=== PATIENT | female | born 1945 | race Hispanic/Latino ===

== ENCOUNTER 2017-04-09 12:56 | Outpatient (CLI) | payer MEDICARE, BC ==
--- NOTE | 2017-04-09 15:56 | MRI ---
EXAM: LUMBAR SPINE MRI WITHOUT CONTRAST 04/09/17 HISTORY: Lumbar spondylolisthesis. COMPARISON: None. TECHNIQUE: MRI of lumbar spine is performed without intravenous gadolinium administration. Multisequential, mult iplanar imaging is performed. FINDINGS: Appropriate T1 marrow signal intensity of the lumbar vertebrae. Lumbar spine vertebral height is main tained. No fracture. 4 mm of retrolisthesis of L2 upon L3, 4 mm anterolisthesis of L4 upon L5. No sig nificant STIR hyperintensity to suggest vertebral body edema or ligamentous injury. Appropriate signal intensity of the visualized solid organs. Symmetric signal intensity of the psoas muscles. Conus medullaris terminates at the superior end plate of L1. T12-L1: Adequate disc hydration. No significant central canal stenosis or foraminal narrowing. L1-L2: Adequate disc hydration. No significant central canal stenosis or foraminal narrowing. L2-L3: Disc desiccation with moderate loss of disc space height. Generalized disc bulge results in mi nimal central canal stenosis. Mild bilateral foraminal narrowing. L3-L4: Adequate disc hydration. No significant loss of disc space height. Generalized disc bulge, lig amentum flavum thickening and facet hypertrophy results in mild central canal stenosis. Mild right an d moderate to severe left foraminal narrowing. L4-L5: Desiccation with mild loss of disc space height. Generalized disc bulge, ligamentum flavum thi ckening and facet hypertrophy result in moderate to severe central canal stenosis. Mild right and mod erate left foraminal narrowing. L5-S1: Adequate disc hydration. No significant central canal stenosis. Neural foramina are patent. Th ere is bilateral facet hypertrophy. IMPRESSION: Degenerative changes of the lumbar spine as above. There is moderate to severe central canal stenosis at L3-4. POS: [facility]
--- NOTE | 2017-04-09 16:05 | RAD ---
THREE VIEW LUMBAR SPINE SERIES: Indication: Lumbar radiculopathy. Pain. FINDINGS: Three lateral views including neutral, flexion and extension were performed. Limited evaluation witho ut provided frontal view. Neutral view reveals multilevel endplate degenerative change with mild retrolisthesis of L2 on L3 and grade I spondylolisthesis at L4-5. Upon flexion and extension positioning, there is no significant t ranslational motion. There is atherosclerotic vascular disease. IMPRESSION: 1. Listheses of the lumbar spine, without significant translation motion. 2. Multilevel degenerative change is present within the lumbar spine. POS: [facility]
== END 2017-04-09 12:57 | disposition home or self-care (01) ==
LOC: TBSIIMAG 12:56
PROVIDERS: ATTEND Neurological Surgery
DX: M43.16 Spondylolisthesis, lumbar region (principal); M47.816 Spondylosis without myelopathy or radiculopathy, lumbar region; M48.061 Spinal stenosis, lumbar region without neurogenic claudication
CPT/HCPCS: 72100; 72148

== ENCOUNTER 2017-04-22 15:00 | Inpatient (IN) | payer MEDICARE, BC ==
[2017-04-23 11:56] VITALS: BMI 27.8
[2017-04-29] MEDS ORDERED: Fentanyl 100 MCG/2 ML VIAL ONE ×3 (06:48→09:52)
[2017-04-29] MEDS ORDERED: Sodium Chloride 0.9% 10 ML ONE (06:52)
[2017-04-29] MEDS ORDERED: CEFAZOLIN/Water 2 GM/20 ML SYRINGE ONE (07:13)
--- NOTE | 2017-04-29 09:04 | OP ---
DATE OF PROCEDURE: 04/29/2016 SURGEON: Marco aNrvaez M.D. VISCERA WASHER: Jose Antonio Rivera PROCEDURE: L4-5 laminectomy, posterolateral arthrodesis, pedicle screw instrumentation, demineralize d bone matrix, and local morselized autograft L4-5. PROCEDURE IN DETAIL: The patient was brought into the operating room intubated. She was rolled in t he prone position on gel-filled chest rolls. Incision made exposing L4 and L5 and our level was conf irmed by x-ray. We performed complete L5 and inferior L4 laminectomies, completely decompressing the neural elements bilaterally. Next, we placed pedicle screws at right L4 and right L5 using lateral fluoroscopic guidance. A nitza was secured between the screws, connected by nuts which were final tigh tened. The wound was then extensively irrigated, immaculate hemostasis was secured. A combination o f demineralized bone matrix and local morselized autograft was laid over the left laminar and postero lateral surfaces for the purpose of arthrodesis. Vancomycin powder was applied and the wound was the n closed in anatomic layers.
[2017-04-29] MEDS ORDERED: Promethazine HCl 25 MG/ML VIAL IM PRN ×2 (09:09→09:46)
[2017-04-29] MEDS ORDERED: Promethazine HCl 25 MG/ML VIAL SLOW IVP PRN (09:09)
[2017-04-29] MEDS ORDERED: Ondansetron HCl/PF 4 MG/2 ML Vial IVP PRN (09:09)
[2017-04-29] MEDS ORDERED: Prochlorperazine 10 MG/2 ML VIAL IM PRN (09:46)
[2017-04-29] MEDS ORDERED: Milk Of Magnesia 30 ML UDCUP PO PRN (09:46)
[2017-04-29] MEDS ORDERED: Acetaminophen 325 MG TAB PO PRN (09:46)
[2017-04-29] MEDS ORDERED: Mag-Al 1200 mg/1200 mg/30 ML UDCUP PO PRN (09:46)
[2017-04-29] MEDS ORDERED: Promethazine HCl 12.5 MG SUPP PR PRN (09:46)
[2017-04-29] MEDS ORDERED: Promethazine 25 MG TAB PO PRN (09:46)
[2017-04-29] MEDS ORDERED: Acetaminophen 650 MG Suppository PR PRN (09:46)
[2017-04-29] MEDS ORDERED: HYDROcodone/Acetaminophen 7.5/325 mg Tablet PO PRN (09:46)
[2017-04-29] MEDS ORDERED: Morphine 4 MG/ML Carpuject SLOW IVP PRN (09:46)
[2017-04-29] MEDS ORDERED: Ondansetron HCl/PF 4 MG/2 ML Vial IM PRN (09:48)
[2017-04-29] MEDS ORDERED: Benzonatate 100 MG CAP PO PRN (09:53)
[2017-04-29] MEDS ORDERED: Docusate Calcium (SURFAK) 240 MG CAP PO PRN (09:55)
[2017-04-29] MEDS ORDERED: HYDROcodone/Acetaminophen 5/325 mg Tablet PO PRN (10:01)
[2017-04-29] MEDS ORDERED: Meclizine HCl 25 MG TAB PO PRN (10:03)
[2017-04-29] MEDS ORDERED: Ketorolac Tromethamine 30 MG/ML VIAL IVP SCH (12:00)
[2017-04-29] MEDS: tiZANidine HCl 4 MG TAB PO PRN (12:45)
[2017-04-29] MEDS ORDERED: Morphine 5 MG/ML SYRINGE SLOW IVP PRN ×2 (12:50)
[2017-04-29] MEDS: Sodium Chloride 0.9% 1,000 ML IV SCH (13:07)
[2017-04-29] MEDS: CEFAZOLIN/Water 2 GM/20 ML SYRINGE SLOW IVP SCH ×2 (14:08→23:25)
[2017-04-29] MEDS: Gabapentin 100 MG CAP PO SCH ×2 (15:33→22:07)
[2017-04-29] MEDS: chlordiazePOXIDE/Clidinium Bromide Capsule PO SCH ×2 (15:34→22:31)
[2017-04-29] MEDS: Ketorolac Tromethamine 30 MG/ML VIAL IVP SCH ×2 (15:35→22:11)
[2017-04-29] MEDS ORDERED: Propofol 200 MG/20 ML VIAL ONE (15:49)
[2017-04-29] MEDS ORDERED: PHENYLEPHRINE-NS 100 MCG/ML 10 ML SYRINGE ONE (15:49)
[2017-04-29] MEDS ORDERED: Dexamethasone 20 MG/5 ML VIAL ONE (15:49)
[2017-04-29] MEDS ORDERED: Lidocaine 1% PF 5 ML VIAL ONE (15:49)
[2017-04-29] MEDS ORDERED: Ondansetron HCl/PF 4 MG/2 ML Vial ONE (15:49)
[2017-04-29] MEDS ORDERED: Glycopyrrolate 0.2 MG/ML 5 ML SYRINGE ONE (15:49)
[2017-04-29] MEDS ORDERED: ePHEDrine/0.9% NaCl/PF SYRINGE 50 mg/10 ml ONE (15:49)
[2017-04-29] MEDS ORDERED: Ketorolac Tromethamine 30 MG/ML VIAL ONE (15:49)
[2017-04-29] MEDS: HYDROcodone/Acetaminophen 7.5/325 mg Tablet PO PRN ×2 (17:45→22:27)
[2017-04-29] MEDS: Loratadine 10 MG TAB PO SCH (22:06)
[2017-04-29] MEDS: ALPRAZolam 0.25 MG TAB PO SCH (22:07)
[2017-04-29] MEDS: Azelastine 137 MCG/Spray 30 ML NS SCH (22:31)
[2017-04-29] MEDS: Clotrimazole/Betamethasone Cream 45 GM TUBE TOP SCH (22:31)
[2017-04-29] MEDS: Estrogens, Conjugated 30 GM TUBE VAG SCH (22:31)
[2017-04-29] MEDS: Latanoprost 0.005% Ophth Soln 2.5 ml Bottle EA EYE SCH (22:32)
[2017-04-29] MEDS: Losartan 25 MG TAB PO SCH (22:32)
[2017-04-30] MEDS: Sodium Chloride 0.9% 1,000 ML IV SCH ×2 (00:02→11:24)
[2017-04-30] MEDS: Ketorolac Tromethamine 30 MG/ML VIAL IVP SCH ×4 (04:02→22:00)
[2017-04-30] MEDS: HYDROcodone/Acetaminophen 7.5/325 mg Tablet PO PRN ×2 (04:09→20:39)
[2017-04-30] MEDS: chlordiazePOXIDE/Clidinium Bromide Capsule PO SCH ×2 (07:14→11:15)
[2017-04-30] MEDS ORDERED: [UNRECOGNIZED DRUG - OTHER] PO SCH (09:00)
[2017-04-30] MEDS: Clotrimazole/Betamethasone Cream 45 GM TUBE TOP SCH ×2 (09:41→20:03)
[2017-04-30] MEDS: Azelastine 137 MCG/Spray 30 ML NS SCH ×2 (09:41→20:02)
[2017-04-30] MEDS: Gabapentin 100 MG CAP PO SCH ×3 (09:41→20:25)
[2017-04-30] MEDS: Hydrochlorothiazide 25 MG TAB PO SCH (11:00)
[2017-04-30] MEDS: Potassium Chloride 20 MEQ TAB PO SCH (13:07)
[2017-04-30] MEDS: Losartan 25 MG TAB PO SCH (20:02)
[2017-04-30] MEDS: Latanoprost 0.005% Ophth Soln 2.5 ml Bottle EA EYE SCH (20:02)
[2017-04-30] MEDS: Loratadine 10 MG TAB PO SCH (20:24)
[2017-04-30] MEDS: Estrogens, Conjugated 30 GM TUBE VAG SCH (20:25)
[2017-04-30] MEDS: ALPRAZolam 0.25 MG TAB PO SCH (20:25)
[2017-05-01] MEDS: Sodium Chloride 0.9% 1,000 ML IV SCH ×3 (03:02→20:32)
[2017-05-01] MEDS: Ketorolac Tromethamine 30 MG/ML VIAL IVP SCH ×2 (04:38→09:28)
[2017-05-01] MEDS: Gabapentin 100 MG CAP PO SCH ×3 (09:19→20:33)
[2017-05-01] MEDS: Potassium Chloride 20 MEQ TAB PO SCH (09:19)
[2017-05-01] MEDS: tiZANidine HCl 4 MG TAB PO PRN (09:23)
[2017-05-01] MEDS: Azelastine 137 MCG/Spray 30 ML NS SCH ×2 (09:25→20:32)
[2017-05-01] MEDS: Clotrimazole/Betamethasone Cream 45 GM TUBE TOP SCH ×2 (09:26→20:33)
[2017-05-01] MEDS: chlordiazePOXIDE/Clidinium Bromide Capsule PO SCH ×3 (09:26→20:33)
[2017-05-01] MEDS: Hydrochlorothiazide 25 MG TAB PO SCH (09:26)
[2017-05-01] MEDS ORDERED: Naloxone HCl 0.4 mg/ml Vial ONE ×2 (10:51→10:55)
[2017-05-01] MEDS ORDERED: Sodium Chloride 0.9% 1,000 ML IV SCH (12:15)
[2017-05-01 13:45] LABS: #Eosinphils 0.1 thou/uL (0.0-0.7); #Lymphocytes 1.4 thou/uL (1.20-3.40); #Monocytes 0.4 thou/uL (0.11-0.59); #Neutrophils 3.6 thou/uL (1.40-6.50); %Basophils 0.4 % (0.0-1.0); %Eosinophils 2.5 % (0.0-10.0); %Lymphocytes 25.6 % (21.0-51.0); %Monocytes 7.9 % (0.0-10.0); %Neutrophils 63.6 % (42.0-75.0); Hemoglobin 10.7 g/dL (12.0-16.0); Mean Corpuscular HGB CONC 33.1 g/dL (32.0-36.0); Mean Corpuscular Hemoglobin 31.9 pg (27.0-31.0); Mean Corpuscular Volume 96.4 fl (81.0-99.0); Mean Platelet Volume 7.5 fL (7.4-10.4); Platelet Count 162 thou/uL (130-400); RBC Distribution Width 11.8 % (11.5-14.5); Red Blood Cell (RBC) Count 3.35 mill/uL (4.20-5.40); White Blood Cell (WBC) Count 5.6 thou/uL (4.8-10.8)
[2017-05-01 13:54] LABS: Anion Gap 11 mmol/L (10-20); BUN (Urea Nitrogen) 20 mg/dL (9.8-20.1); Calc. Creatinine Clearance 60 mL/min (70-130); Calcium 8.2 mg/dL (7.8-10.44); Carbon Dioxide 23 mmol/L (23-31); Chloride 110 mmol/L (98-107); Estimated GFR-MDRD 63; Glucose 164 mg/dL (83-110); Magnesium 1.7 mg/dL (1.6-2.6); Potassium 4.2 mmol/L (3.5-5.1); Sodium 140 mmol/L (136-145)
[2017-05-01] MEDS: ALPRAZolam 0.25 MG TAB PO SCH (20:32)
[2017-05-01] MEDS: Estrogens, Conjugated 30 GM TUBE VAG SCH (20:33)
[2017-05-01] MEDS: Losartan 25 MG TAB PO SCH (20:34)
[2017-05-01] MEDS: Loratadine 10 MG TAB PO SCH (20:34)
[2017-05-01] MEDS: Latanoprost 0.005% Ophth Soln 2.5 ml Bottle EA EYE SCH (20:34)
[2017-05-01] MEDS: Acetaminophen 500 MG TAB PO PRN (23:01)
[2017-05-02] MEDS: Sodium Chloride 0.9% 1,000 ML IV SCH (05:50)
[2017-05-02 08:19] LABS: #Basophils 0.1 thou/uL (0.0-0.2); #Eosinphils 0.1 thou/uL (0.0-0.7); #Lymphocytes 1.2 thou/uL (1.20-3.40); #Monocytes 0.4 thou/uL (0.11-0.59); #Neutrophils 3.6 thou/uL (1.40-6.50); %Basophils 1.2 % (0.0-1.0); %Eosinophils 1.6 % (0.0-10.0); %Lymphocytes 22.6 % (21.0-51.0); %Monocytes 7.8 % (0.0-10.0); %Neutrophils 66.9 % (42.0-75.0); Hemoglobin 11.7 g/dL (12.0-16.0); Mean Corpuscular HGB CONC 33.4 g/dL (32.0-36.0); Mean Corpuscular Hemoglobin 32.4 pg (27.0-31.0); Mean Corpuscular Volume 96.8 fl (81.0-99.0); Mean Platelet Volume 7.1 fL (7.4-10.4); Platelet Count 170 thou/uL (130-400); RBC Distribution Width 11.7 % (11.5-14.5); Red Blood Cell (RBC) Count 3.62 mill/uL (4.20-5.40); White Blood Cell (WBC) Count 5.4 thou/uL (4.8-10.8)
[2017-05-02 08:40] LABS: Anion Gap 9 mmol/L (10-20); BUN (Urea Nitrogen) 10 mg/dL (9.8-20.1); Calc. Creatinine Clearance 70 mL/min (70-130); Calcium 8.6 mg/dL (7.8-10.44); Carbon Dioxide 25 mmol/L (23-31); Chloride 109 mmol/L (98-107); Estimated GFR-MDRD 76; Glucose 112 mg/dL (83-110); Magnesium 1.7 mg/dL (1.6-2.6); Potassium 3.9 mmol/L (3.5-5.1); Sodium 139 mmol/L (136-145)
[2017-05-02] MEDS: chlordiazePOXIDE/Clidinium Bromide Capsule PO SCH (08:50)
[2017-05-02] MEDS: Gabapentin 100 MG CAP PO SCH (08:50)
[2017-05-02] MEDS: Clotrimazole/Betamethasone Cream 45 GM TUBE TOP SCH (08:50)
[2017-05-02] MEDS: Azelastine 137 MCG/Spray 30 ML NS SCH (08:50)
[2017-05-02] MEDS: Acetaminophen 500 MG TAB PO PRN (08:50)
[2017-05-02] MEDS: Potassium Chloride 20 MEQ TAB PO SCH (08:51)
[2017-05-02] MEDS: Hydrochlorothiazide 25 MG TAB PO SCH (08:52)
[2017-05-02] MEDS ORDERED: Meclizine HCl 25 MG TAB PO SCH ×2 (10:45→15:00)
--- NOTE | 2017-05-02 13:40 | PDOC.PN ---
- Subjective Encounter Start Date: 05/02/17 Encounter Start Time: 09:20 Pt feels poorly today, but number normal. BP markedly better, no F/C, no n/v/d/ c. has a headache, usually takes her meclizine for this with good effect, will restart 10 point ROs performed and neg for all systems except as per HPI - Objective MAR Reviewed: Yes Vital Signs & Weight: Vital Signs (12 hours) Temp Pulse Pulse Resp BP BP Pulse Ox 05/02/17 12:00 97.8 F 72 20 123/73 95 05/02/17 11:08 98.3 F 79 20 129/71 95 05/02/17 09:36 83 129/68 05/02/17 08:00 99.3 F 75 20 135/82 95 05/02/17 07:58 20 05/02/17 04:19 98.5 F 72 16 124/67 94 L Weight Weight 147 lb I&O: 05/01/17 05/02/17 05/03/17 06:59 06:59 06:59 Intake Total 902 3901 Output Total 700 Balance 202 3901 Result Diagrams: 05/02/17 08:09 05/02/17 08:09 Phys Exam - Physical Examination Constitutional: NAD HEENT: PERRLA, moist MMs, sclera anicteric, oral pharynx no lesions Neck: no nodes, no JVD, supple, full ROM Respiratory: no wheezing, no rales, no rhonchi, clear to auscultation bilateral Cardiovascular: RRR, no significant murmur, no rub Gastrointestinal: soft, non-tender, no distention, positive bowel sounds Musculoskeletal: no edema, pulses present Neurological: non-focal, normal sensation, moves all 4 limbs Lymphatic: no nodes Psychiatric: normal affect, A&O x 3 Skin: no rash, normal turgor, cap refill <2 seconds Dx/Plan (1) Hypotension Status: Resolved Qualifiers: Hypotension type: hypotension due to drug Qualified Code(s): I95.2 - Hypotension due to drugs Comment: resolved, ok to discharge (2) Anxiety and depression Code(s): F41.9 - ANXIETY DISORDER, UNSPECIFIED; F32.9 - MAJOR DEPRESSIVE DISORDER, SINGLE EPISODE, UNSPECIFIED Status: Chronic (3) GERD (gastroesophageal reflux disease) Code(s): K21.9 - GASTRO-ESOPHAGEAL REFLUX DISEASE WITHOUT ESOPHAGITIS Status: Chronic Qualifiers: Esophagitis presence: without esophagitis Qualified Code(s): K21.9 - Gastro -esophageal reflux disease without esophagitis (4) Glaucoma Code(s): H40.9 - UNSPECIFIED GLAUCOMA Status: Chronic Qualifiers: Glaucoma type: unspecified Laterality: bilateral Qualified Code(s): H40.9 - Unspecified glaucoma (5) HTN (hypertension) Code(s): I10 - ESSENTIAL (PRIMARY) HYPERTENSION Status: Chronic Qualifiers: Hypertension type: essential hypertension Qualified Code(s): I10 - Essential (primary) hypertension - Plan cont current plan of care, PT/OT, out of bed/ambulate * . home per NSG
[2017-05-02 14:12] VITALS: BP 133/63; TEMP 98.4
== END 2017-05-02 14:12 | disposition home health service (06) | DRG 460 ==
LOC: SURG A 04-29 06:18 → 3SE 04-29 11:31 → EDSTATUS 04-29 15:00
PROVIDERS: ADMIT Neurological Surgery; ATTEND Neurological Surgery
PROC: 01NB0ZZ Release Lumbar Nerve, Open Approach (ICD-10-PCS; principal; 2017-04-29)
PROC: 0SG0071 Fusion of Lumbar Vertebral Joint with Autologous Tissue Substitute, Posterior Approach, Posterior Column, Open Approach (ICD-10-PCS; 2017-04-29)
DX: M43.16 Spondylolisthesis, lumbar region (principal); F32.9 Major depressive disorder, single episode, unspecified; F41.9 Anxiety disorder, unspecified; M48.061 Spinal stenosis, lumbar region without neurogenic claudication; I95.2 Hypotension due to drugs; T42.8X5A Adverse effect of antiparkinsonism drugs and other central muscle-tone depressants, initial encounter; R55 Syncope and collapse; T40.2X5A Adverse effect of other opioids, initial encounter; K21.9 Gastro-esophageal reflux disease without esophagitis; H40.9 Unspecified glaucoma; I10 Essential (primary) hypertension
CPT/HCPCS: 36415; 36416; 76001; 80048; 83735; 85025; J2270; A4216; C1713; C1768; G8978-GP-CL; G8979-GP-CJ; J1100; J1885; J2001; J2310; J2405; J2704; J3010; J3370; J3490

== ENCOUNTER 2017-04-23 11:44 | Outpatient (CLI) | payer MEDICARE, BC | END 2017-04-23 11:45 | disposition home or self-care (01) | LOC: LABBT 11:44 | PROVIDERS: ATTEND Neurological Surgery | DX: Z01.812 Encounter for preprocedural laboratory examination (principal); M43.16 Spondylolisthesis, lumbar region | CPT/HCPCS: 87081 ==

== ENCOUNTER 2017-05-13 09:41 | Outpatient (CLI) | payer MEDICARE, BC ==
--- NOTE | 2017-05-13 11:44 | RAD ---
TWO VIEWS LUMBAR SPINE: History: Status post-surgery. Continued pain. Date: 05-13-17 Comparison: 04-09-17 FINDINGS: AP and lateral views obtained. There are right L4 and L5 pedicles screws in position. This patient muse s had a previous L4 posterior decompression. Some L5 decompression is also noted. There is some dextr oscoliosis centered at the L3 level. Disc space height loss also seen at L2-3. The degree of anterolisthesis of L4 on L5 has decreased on the post hardware placement radiographs. Surgical clips seen in the gallbladder fossa. IMPRESSION: L4 and L5 posterior decompression with placement of right L4 and L5 transpedicular screws. POS: [facility]
== END 2017-05-13 09:42 | disposition home or self-care (01) ==
LOC: TBSIIMAG 09:41
PROVIDERS: ATTEND Neurological Surgery
DX: M43.16 Spondylolisthesis, lumbar region (principal); Z98.890 Other specified postprocedural states
CPT/HCPCS: 72100

== ENCOUNTER 2017-05-19 13:03 | Inpatient (IN) | payer MEDICARE, BC ==
[2017-05-19 13:51] LABS: #Basophils 0.1 thou/uL (0.0-0.2); #Eosinphils 0.1 thou/uL (0.0-0.7); #Lymphocytes 1.4 thou/uL (1.20-3.40); #Monocytes 0.3 thou/uL (0.11-0.59); #Neutrophils 2.7 thou/uL (1.40-6.50); %Basophils 1.3 % (0.0-1.0); %Eosinophils 2.7 % (0.0-10.0); %Lymphocytes 30.5 % (21.0-51.0); %Monocytes 7.4 % (0.0-10.0); Hemoglobin 13.7 g/dL (12.0-16.0); Mean Corpuscular HGB CONC 33.7 g/dL (32.0-36.0); Mean Platelet Volume 6.8 fL (7.4-10.4); Platelet Count 298 thou/uL (130-400); RBC Distribution Width 11.7 % (11.5-14.5); White Blood Cell (WBC) Count 4.6 thou/uL (4.8-10.8)
[2017-05-19 14:00] LABS: PTT 28.8 SEC (22.9-36.1); Prothrombin Time 13.3 SEC (12.0-14.7)
--- NOTE | 2017-05-19 14:00 | RAD ---
SINGLE VIEW CHEST: HISTORY: Lumbar back pain after a fall 30 minutes prior to arrival. COMPARISON: None. FINDINGS: Single view of the chest show normal sized cardiomediastinal silhouette. There is no evidence of cons olidation, mass, or pleural effusion. The bones are unremarkable. Cholecystectomy clips are seen in the upper abdomen. IMPRESSION: No evidence of acute cardiopulmonary disease. POS: [facility]
[2017-05-19 14:04] LABS: ALT (SGPT) 15 U/L (8-55); AST (SGOT) 13 U/L (5-34); Albumin 4.4 g/dL (3.4-4.8); Alkaline Phosphatase 73 U/L (40-150); Anion Gap 15 mmol/L (10-20); BUN (Urea Nitrogen) 16 mg/dL (9.8-20.1); Bilirubin, Total 0.5 mg/dL (0.2-1.2); CK (CPK) 26 U/L (29-168); Calc. Creatinine Clearance 0 mL/min (70-130); Calcium 9.8 mg/dL (7.8-10.44); Carbon Dioxide 24 mmol/L (23-31); Chloride 103 mmol/L (98-107); Estimated GFR-MDRD 56; Globulin 3.4 g/dL (2.4-3.5); Glucose 105 mg/dL (83-110); Protein, Total 7.8 g/dL (6.0-8.3); Sodium 139 mmol/L (136-145)
[2017-05-19 14:06] LABS: Potassium 2.9 mmol/L (3.5-5.1)
--- NOTE | 2017-05-19 14:06 | CT ---
NONCONTRAST HEAD CT: HISTORY: Stroke activation. Status post fall. Recent spinal surgery six weeks ago with hardware. COMPARISON: None. TECHNIQUE: A noncontrast head CT is performed from the skull base to the skull vertex. FINDINGS: No parenchymal hemorrhage. No extraaxial hematoma. No midline shift. the basilar cisterns are barry nt. Brain volume is age appropriate. Cortical dooley white matter differentiation is preserved. The ventricles and sulci are patent and symmetric. The calvarium is intact. Adequate aeration of the sinuses and mastoid air cells. IMPRESSION: No acute intracranial process. The results of the study were discussed with Dr. Weber on 05/19/2017 at 1:58 p.m. CODE CR POS: [facility]
[2017-05-19 14:07] LABS: CKMB 0.4 ng/mL (0-6.6); Troponin I Less than 0.010 ng/mL (< 0.028)
--- NOTE | 2017-05-19 15:26 | CT ---
CT OF THE LUMBAR SPINE WITHOUT CONTRAST: COMPARISON: None. HISTORY: Right lower extremity weakness after a fall. The patient had spinal surgery 6 weeks ago with etja powers. The patient reports having the right lower extremity weakness prior to the fall. TECHNIQUE: Multiple contiguous axial images were obtained in a CT of the lumbar spine without contrast. Sagitta l and coronal reformats were performed. FINDINGS: The patient has had laminectomies at L4 and L5. There are right-sided pedicle screws spanning L4 and L5. No perihardware lucency is seen. The vertebral bodies demonstrate normal height without fractu re or subluxation. The L2-3 intervertebral disk is narrowed and has vacuum phenomenon. Moderate ost eophytes are seen surrounding this intervertebral disk. There is soft tissue density in the surgical bed which may demonstrate low signal intensity. This co uld potentially represent a fluid collection but cannot be definitely appreciated with CT. Atheroscl erotic calcifications are seen in the aorta. The other prevertebral soft tissues are unremarkable. IMPRESSION: Postsurgical changes of the lower lumbar spine as above. There may be a fluid collection in the para spinal soft tissues, but evaluation is limited on the CT without contrast. An MRI of the lumbar spin e without and with contrast is recommended for further evaluation. POS: [facility]
--- NOTE | 2017-05-19 15:49 | CT ---
CT CERVICAL SPINE: Date: 05/19/17 HISTORY: Fall. Pain. COMPARISON: None. TECHNIQUE: Axial images of the cervical spine were obtained while performing a CT angiogram of the neck. Sagitta l and coronal images with bone algorithm are submitted for interpretation. FINDINGS: There are varying degrees of central canal stenosis and foraminal narrowing on the basis of degenerat haylee change. Evaluation is limited by technique. Lateral masses of C1 and C2 articulate appropriately. There is appropriate articulation of the facets . Odontoid process is intact. No evidence of a cervical spine fracture. Cervical spine vertebral body height is maintained. IMPRESSION: No fracture. POS: [facility]
[2017-05-19] MEDS ORDERED: Acetaminophen 500 MG TAB PO PRN (16:19)
[2017-05-19] MEDS ORDERED: Docusate Calcium (SURFAK) 240 MG CAP PO PRN (16:19)
[2017-05-19] MEDS ORDERED: Benzonatate 100 MG CAP PO PRN (16:19)
[2017-05-19] MEDS ORDERED: Sod Chloride/Lan/MO/Peet,Wh (Lubriderm) Lotion 180 ml Bottle TOP PRN (16:19)
[2017-05-19] MEDS ORDERED: Potassium Chloride 40 MEQ in Sodium Chloride 0.9% 500 ML IVPB SCH (16:45)
[2017-05-19] MEDS ORDERED: ISOVUE-370 76%-LOCM 1 ML ONE (16:47)
--- NOTE | 2017-05-19 16:53 | HP ---
DATE OF ADMISSION: 05/19/2017 CHIEF COMPLAINT: Right lower extremity weakness. HISTORY OF PRESENT ILLNESS: This is a 72-year-old female who is being admitted to the hospital with right lower extremity weakness. The patient incidentally had a recent surgery towards the end of Apr ruary for a spinal surgery and was discharged home. The patient states that at home everything was g oing well. She was recovering well, ambulating well this morning. The patient's family states that she woke up and then apparently stated all of a sudden she had a sudden onset of right lower extremit y weakness, was unable to ambulate and had a witnessed mechanical fall. Patient states that she is u nable to recall the incident at that time. Currently, at this point in time, the patient states that she feels that her cognitive functions have decreased and speech. She talks very slowly. States th at she has significant pain in the right shoulder as well as right hip and also admits to having a re duced muscle strength and movement in the right lower extremity. The patient states that this has ne jade happened to her before. Denies any other complaints or associated symptoms. The patient states that she has no alleviating or aggravating factors. The patient states the pain is 7/10 in nature an d throbbing in nature. The patient was seen and examined in the emergency room. Family at bedside. All questions answered. MEDICATIONS: See MAR. ALLERGIES: CODEINE, PENICILLIN, LACTOSE, TIZANIDINE and TRAMADOL. PAST MEDICAL HISTORY: Positive for hypertension, spinal fusion surgery and back pain. FAMILY HISTORY: History of coronary artery disease and strokes. SOCIAL HISTORY: No drinking or smoking. REVIEW OF SYSTEMS: Twelve point review of systems performed. Pertinent positives in the HPI, otherw ise negative. PHYSICAL EXAMINATION: VITAL SIGNS: Blood pressure 146/78, heart rate 98, temperature of 98, respiratory rate 18. GENERAL: The patient is lying in bed in the ER in moderate distress. HEENT: Pupils equal, round, reactive to light bilaterally accommodation. Normocephalic, atraumatic. NECK: Supple, nontender, mobile thyroid. LUNGS: Clear to auscultation bilaterally aerating well. No increase in AP diameter. CARDIOVASCULAR: Regular rate and rhythm, S1 and S2. No murmurs, rubs or gallops appreciated. ABDOMEN: Positive bowel sounds, soft, nontender. EXTREMITIES: 2+ peripheral pulses. No edema noted. NEUROLOGIC: CN II-XII intact. Right lower extremity 1/5 hip flexion. Left lower extremity 4/5 hip flexion, finger to nose on the right side inappropriate, left side appropriate. LABORATORY DATA: CBC within normal limits. BMP reveals potassium of 2.9, otherwise within normal li mits. The patient had a cervical spine CT done, which showed no fracture. The patient had a lumbar spine CT done as well, which showed postsurgical changes in the lower lumbar spine, fluid collections in paraspinal soft tissue as well. The patient also had a head and neck CTA done which is pending. ASSESSMENT AND PLAN: 1. Right lower extremity weakness. 2. History of recent spinal surgery. 3. Hypertension. 4. Right hip pain. 1. At this point in time, we will admit the patient to the stroke unit. Consult Neurology and Neuro surgery. 2. CTA of head and neck pending. We will follow up with results. 3. The patient is not a TPA candidate given recent lumbar surgery. 4. We will start the patient on aspirin and statin. Heparin 5000 q.12h. for DVT prophylaxis. Resum e home medications with hold parameters to be held if systolic blood pressure drops less than 120. 5. We will place patient n.p.o. at this point in time until cleared by Neurology to continue diet as well as passing a swallow evaluation by Speech Therapy. We will do gentle hydration of 60 mL normal saline as well. We will hold home medications such as Ativan and Xanax and muscle relaxants as per family history. She has had significant episodes of hypotension upon taking these medications. 6. I appreciate Neurosurgery and neurological input. Case and plan discussed with patient and famil y at length. They understand and agree with this plan. The patient wishes to remain FULL CODE at th is point in time.
[2017-05-19] MEDS: Sodium Chloride 0.9% 1,000 ML IV SCH (17:30)
[2017-05-19 18:46] VITALS: BMI 27.6
[2017-05-19] MEDS: Clotrimazole/Betamethasone Cream 45 GM TUBE TOP SCH (21:17)
--- NOTE | 2017-05-19 21:29 | CON ---
DATE OF CONSULTATION: 05/19/2017 REFERRING PHYSICIAN: Narendra Castro DO REASON FOR CONSULTATION: Right-sided weakness. HISTORY OF PRESENT ILLNESS: Ms. Reagan is a pleasant 72-year-old female who has been consulted for evaluation of right-sided weakness. The patient reports that she had a lumbar laminectomy done by Dr. Narvaez approximately 3 weeks ago. She was slowly recovering from that surgery. She was initially walking with a walker, and 2 days ago, she was clear to walk independently by her physical therapist. She had gotten up this morning in her normal state of health. She was walking from her room to safety ramp outside her house where she suddenly fell down. She does not know how she fell. She does not remember whether she passed out or not. The daughter found her few minutes later on the floor, awake and alert. She was having difficulty with standing up and walking. She felt weak in her right lower extremity. She also felt numbness on the right lower extremity from the hip down. She noted that she felt somewhat weak in her right upper extremity as well. She denied having any numbness in the right upper extremity. She felt "stiff" around her perioral area. She did not have any vision changes, dysarthria, or dysphagia. There was no chest pain, palpitation, lightheadedness or dizziness. PAST MEDICAL HISTORY: Significant for hypertension. PAST SURGICAL HISTORY: Significant for lumbar spine surgery. SOCIAL HISTORY: She denies smoking, alcohol use, or illicit drug use. FAMILY HISTORY: Significant for coronary artery disease and stroke. CURRENT MEDICATIONS: Please review MAR. ALLERGIES: Include CODEINE, PENICILLIN, LACTOSE, TIZANIDINE and TRAMADOL. REVIEW OF SYSTEMS: As mentioned in the HPI, otherwise negative. PHYSICAL EXAMINATION: VITAL SIGNS: Blood pressure 167/77, pulse of 59, temperature of 97.4, respirations of 16, O2 sats of 96% on room air. GENERAL: Well-developed, well-nourished female in no apparent distress. RESPIRATORY: Clear to auscultation bilaterally. CARDIOVASCULAR: Regular rate and rhythm. NEUROLOGIC: Mental status: The patient is awake, alert, oriented x3. Speech and language: Fluent speech. Cranial nerves: Pupils are 3 mm and reactive. Visual dillard are intact. Extraocular muscles are intact. No nystagmus is noted. Face is symmetric. Tongue midline. Motor exam showed normal tone and bulk with 5/5 strength in the left upper and left lower extremity, 5/5 strength in the right upper extremity, 2-3/5 strength in the right lower extremity. Sensory: Sensation appears intact. Deep tendon reflexes 2+ reflexes in both upper and lower extremities. Babinski: Plantar responses flexion bilaterally. Coordination intact to [id number] and finger tapping bilaterally. LABORATORY DATA: Reviewed, which included CBC, coag panel, CMP, which is significant for white cell count of 4.6, potassium of 2.9, otherwise unremarkable. IMAGING STUDIES: CT head without contrast was reviewed, which showed no acute intracranial abnormality. CT cervical spine and CT lumbar spine were reviewed, which showed no acute fracture. IMPRESSION: 1. Right lower extremity weakness. 2. Recent lumbar spine surgery. ASSESSMENT AND PLAN: Mr. Reagan is a pleasant 72-year-old female who presented with the sudden onset of right lower extremity weakness. At this time, I would recommend obtaining MRI brain without contrast. If MRI brain is negative, MRI cervical and lumbar spine may need to be obtained to further evaluate for other etiologies. Follow up recommendations of Neurosurgery, and consult PT, OT. MTDD
[2017-05-19] MEDS: Losartan 25 MG TAB PO SCH (21:31)
[2017-05-19] MEDS: Atorvastatin Calcium 20 MG TAB PO SCH (21:31)
[2017-05-19] MEDS: Loratadine 10 MG TAB PO SCH (21:32)
[2017-05-19] MEDS: Heparin 5,000 UNITS/ML VIAL SC SCH (21:32)
[2017-05-19] MEDS: Gabapentin 100 MG CAP PO SCH (21:32)
[2017-05-19] MEDS: Latanoprost 0.005% Ophth Soln 2.5 ml Bottle EA EYE SCH (21:33)
[2017-05-20 05:57] LABS: #Eosinphils 0.1 thou/uL (0.0-0.7); #Lymphocytes 1.6 thou/uL (1.20-3.40); #Monocytes 0.3 thou/uL (0.11-0.59); #Neutrophils 1.6 thou/uL (1.40-6.50); %Basophils 0.6 % (0.0-1.0); %Eosinophils 3.8 % (0.0-10.0); %Lymphocytes 42.7 % (21.0-51.0); %Monocytes 8.6 % (0.0-10.0); %Neutrophils 44.4 % (42.0-75.0); Hemoglobin 12.1 g/dL (12.0-16.0); Mean Corpuscular HGB CONC 32.7 g/dL (32.0-36.0); Mean Corpuscular Hemoglobin 30.6 pg (27.0-31.0); Mean Corpuscular Volume 93.4 fl (81.0-99.0); Mean Platelet Volume 6.8 fL (7.4-10.4); Platelet Count 254 thou/uL (130-400); RBC Distribution Width 11.7 % (11.5-14.5); Red Blood Cell (RBC) Count 3.95 mill/uL (4.20-5.40); White Blood Cell (WBC) Count 3.6 thou/uL (4.8-10.8)
[2017-05-20 06:12] LABS: Anion Gap 13 mmol/L (10-20); BUN (Urea Nitrogen) 14 mg/dL (9.8-20.1); Calc. Creatinine Clearance 64 mL/min (70-130); Carbon Dioxide 23 mmol/L (23-31); Cardiac Risk 5.9 (Less than 4.5); Chloride 109 mmol/L (98-107); Cholesterol 200 mg/dl (< 200 Desired); Estimated GFR-MDRD 68; Glucose 98 mg/dL (83-110); HDL Cholesterol 34 mg/dL (>60 Neg Risk); LDL Cholesterol, Calculated 128 mg/dL; Potassium 3.8 mmol/L (3.5-5.1); Sodium 141 mmol/L (136-145); Triglycerides 188 mg/dL (Less than 150)
--- NOTE | 2017-05-20 07:39 | CT ---
CT ANGIOGRAM OF THE NECK CT ANGIOGRAM OF THE HEAD CT PERFUSION: HISTORY: Fall. Right lower extremity weakness. Evaluate for stroke. COMPARISON: None. TECHNIQUE: CT angiogram of the head and neck are performed in the axial plane. Sagittal and coronal 3-dimension al reformatted images are submitted for interpretation. CT perfusion imaging is performed in the axial plane. FINDINGS: There is no pathologic enhancement of the brain parenchyma. Adequate aeration of the sinuses and mastoid air cells. Previous sinonasal surgery is noted. Visualized orbits are unremarkable. Bilateral ocular lens implants are noted. Aerodigestive tract is patent. No mucosal abnormality. Midline fatty raphae of the tongue is preser amie. Epiglottis has a normal caliber. Preepiglottic fat is preserved. Symmetric attenuation of the parotid and submandibular glands. Symmetric attenuation of the sternocl eidomastoid muscles. NO evidence of lymphadenopathy by size criteria. The thyroid gland is unremarkable. Upper mediastinum is unremarkable. Chronic changes in the lung apices. Cervical spine vertebral bodies appear to be intact. No evidence of fracture. Refer to separate [facility] CT report for further detail. CT ANGIOGRAM: There is atherosclerosis of the visualized thoracic aorta. RIGHT CAROTID: The origin of the right carotid artery has appropriate enhancement and luminal diameter. The innomin ate artery, common carotid artery, carotid bifurcation, and internal carotid artery have appropriate enhancement and luminal diameter. Mild tortuosity of the distal right internal carotid artery. LEFT CAROTID: Appropriate enhancement and luminal diameter in the origin of the left carotid artery. The left comm on carotid artery, carotid bifurcation, and internal carotid artery have appropriate enhancement and luminal diameter. There is tortuosity of the distal left internal carotid artery. Both subclavian arteries are patent. Mild atherosclerosis involving the proximal left subclavian art barney. Both cervical vertebral arteries are patent throughout their course in the neck. Vertebral arteries are essentially codominant. CT ANGIOGRAM OF TH EHEAD: There is symmetric enhancement and luminal diameter of the distal cervical and intracranial internal carotid arteries. ANTERIOR CIRCULATION: Symmetric enhancement and luminal diameter of the A1 and M1 segments. Appropriate appearance of the proximal A2 and proximal MCA branches. POSTERIOR CIRCULATION: Both distal, cervical, and intracranial vertebral arteries have appropriate enhancement and luminal d iameter. Left and right PICA artery origins are unremarkable. Both vertebral arteries supply a norm al-appearing basilar artery. The left P1 segment is unremarkable. The right PROCESS DEVELOPER has a origin and is unremarkable. PERFUSION CT: No evidence of increased mean transit time. No evidence of decreased flow or decreased volume. No e vidence of penumbra. IMPRESSION: 1. Unremarkable CT angiogram of the head and neck. No evidence of significant stenosis in either ca rotid artery or at the level of the [place]. 2. Unremarkable perfusion CT. 3. Results of the study discussed with Dr. Adrian 05/19/17 at 3:23 p.m. CODE CR POS: [facility]
[2017-05-20] MEDS ORDERED: D3 PO SCH (09:00)
[2017-05-20] MEDS ORDERED: GLUCOSAMINE PO SCH (09:00)
[2017-05-20] MEDS ORDERED: BOSWELLIA SERRA T PO SCH (09:00)
[2017-05-20] MEDS: Aspirin 81 mg Enteric Coated Tablet PO SCH (10:38)
[2017-05-20] MEDS: Clotrimazole/Betamethasone Cream 45 GM TUBE TOP SCH ×2 (10:38→21:27)
[2017-05-20] MEDS: Heparin 5,000 UNITS/ML VIAL SC SCH ×2 (10:38→21:44)
[2017-05-20] MEDS: Gabapentin 100 MG CAP PO SCH ×3 (10:38→21:43)
[2017-05-20] MEDS: Hydrochlorothiazide 25 MG TAB PO SCH (10:39)
--- NOTE | 2017-05-20 11:00 | MRI ---
MRI BRAIN WITHOUT CONTRAST: History: Right sided weakness, status post fall. Comparison: None. Technique: Brain MRI is performed without intravenous gadolinium administration. Multisequential, mul tiplanar imaging was performed. FINDINGS: Calvarium has a normal T1 marrow signal intensity. Midline brain parenchymal structures are unremarka ble. Central arterial flow voids are maintained. Absent restricted diffusion. Minimal white matter hyperintensities, nonspecific. Age appropriate atrophy. Cortical dooley white himanshu er differentiation is preserved. No parenchymal mass, mass effect, or midline shift. No hemorrhage on the axial gradient echo sequence. Minimal mucosal disease of the visualized maxillary sinuses. IMPRESSION: Absence restricted diffusion. No acute infarct. POS: [facility]
--- NOTE | 2017-05-20 11:08 | PRG ---
DATE OF SERVICE: 05/19/2017 I was called to evaluate Mrs. Reagan. She is a 72-year-old woman, well-known to me from an uncompl icated lumbar decompression and fusion several weeks ago, from which she had an uneventful recovery. She did report that since the surgery she felt that she had an episode of too much pain medication a nd since then had had forgetfulness. She was seen in the office last week, doing well, with no focal neurologic deficits. X-rays at that time were satisfactory. Today, she fell and it is unclear as to why. The patient has poor recollection of the event. Since then, she complains of right leg weakness and numbness and some right arm weakness as well. CT of th e head was negative and CT of the lumbar spine showed satisfactory postoperative findings and nothing to explain the new symptoms. CT of the cervical spine was similarly unremarkable. IMPRESSION AND PLAN: The patient's sudden new neurologic deficit is not likely to be mediated by the lumbar spine. I am not sure whether this represents a structural neurologic issue or more nonspecif ic symptoms. Neurology is on board and in the process of ruling out stroke. An MRI of the brain is scheduled for today. New onset right leg weakness and some right arm weakness combined with some cognitive complaints. Al l of these are uncertain etiology. There are no specific postoperative issues that I can identify. MRI of the lumbar spine will be of limited value given the implanted hardware and the recent surgery. I will defer to Neurology and medicine regarding ongoing workup for the possibility of stroke or ot her etiology, and we will follow along to assist in any way possible.
[2017-05-20] MEDS: Acetaminophen 500 MG TAB PO PRN ×2 (12:01→21:44)
--- NOTE | 2017-05-20 14:28 | PDOC.PN ---
- Subjective Encounter Start Date: 05/20/17 Encounter Start Time: 08:00 Patient seen and examined, no new issues, family at bedside, all questions answered. - Objective MAR Reviewed: Yes Vital Signs & Weight: Vital Signs (12 hours) Temp Pulse Resp BP Pulse Ox 05/20/17 12:00 97.6 F 63 20 154/73 H 96 05/20/17 07:36 97.7 F 59 L 20 114/78 96 05/20/17 07:30 97.7 F 59 L 20 95 05/20/17 03:32 97.6 F 62 16 111/58 L 93 L Weight Weight 146 lb 6.4 oz I&O: 05/19/17 05/20/17 05/21/17 06:59 06:59 06:59 Intake Total 300 Balance 300 Result Diagrams: 05/20/17 05:07 05/20/17 05:07 Phys Exam - Physical Examination Constitutional: NAD HEENT: PERRLA, moist MMs, sclera anicteric Neck: no nodes, no JVD, supple Respiratory: no wheezing, no rales, no rhonchi Cardiovascular: RRR, no significant murmur, no rub Gastrointestinal: soft, non-tender, no distention Musculoskeletal: no edema, pulses present Neurological: normal sensation AAO x 3 Dx/Plan (1) Right leg weakness Code(s): R29.898 - OTH SYMPTOMS AND SIGNS INVOLVING THE MUSCULOSKELETAL SYSTEM Status: Acute (2) Spinal surgery in prior 3 months Code(s): Z98.890 - OTHER SPECIFIED POSTPROCEDURAL STATES Status: Acute (3) Benign hypertension Code(s): I10 - ESSENTIAL (PRIMARY) HYPERTENSION Status: Chronic - Plan * MRi pending for today * neursurgery input pending * will await neurological work up and neuro surgery input for now * continue with current medical management * PT/OT * patient's symptoms stable for now * further management per subspecialists * medically stable * case and plan d/w patient and family at length, they understand and agree with this plan
--- NOTE | 2017-05-20 14:29 | CT ---
CT ANGIOGRAM OF THE NECK CT ANGIOGRAM OF THE HEAD CT PERFUSION: HISTORY: Fall. Right lower extremity weakness. Evaluate for stroke. COMPARISON: None. TECHNIQUE: CT angiogram of the head and neck are performed in the axial plane. Sagittal and coronal 3-dimension al reformatted images are submitted for interpretation. CT perfusion imaging is performed in the axial plane. FINDINGS: There is no pathologic enhancement of the brain parenchyma. Adequate aeration of the sinuses and mastoid air cells. Previous sinonasal surgery is noted. Visualized orbits are unremarkable. Bilateral ocular lens implants are noted. Aerodigestive tract is patent. No mucosal abnormality. Midline fatty raphae of the tongue is preser amie. Epiglottis has a normal caliber. Preepiglottic fat is preserved. Symmetric attenuation of the parotid and submandibular glands. Symmetric attenuation of the sternocl eidomastoid muscles. NO evidence of lymphadenopathy by size criteria. The thyroid gland is unremarkable. Upper mediastinum is unremarkable. Chronic changes in the lung apices. Cervical spine vertebral bodies appear to be intact. No evidence of fracture. Refer to separate [facility] CT report for further detail. CT ANGIOGRAM: There is atherosclerosis of the visualized thoracic aorta. RIGHT CAROTID: The origin of the right carotid artery has appropriate enhancement and luminal diameter. The innomin ate artery, common carotid artery, carotid bifurcation, and internal carotid artery have appropriate enhancement and luminal diameter. Mild tortuosity of the distal right internal carotid artery. LEFT CAROTID: Appropriate enhancement and luminal diameter in the origin of the left carotid artery. The left comm on carotid artery, carotid bifurcation, and internal carotid artery have appropriate enhancement and luminal diameter. There is tortuosity of the distal left internal carotid artery. Both subclavian arteries are patent. Mild atherosclerosis involving the proximal left subclavian art barney. Both cervical vertebral arteries are patent throughout their course in the neck. Vertebral arteries are essentially codominant. CT ANGIOGRAM OF TH EHEAD: There is symmetric enhancement and luminal diameter of the distal cervical and intracranial internal carotid arteries. ANTERIOR CIRCULATION: Symmetric enhancement and luminal diameter of the A1 and M1 segments. Appropriate appearance of the proximal A2 and proximal MCA branches. POSTERIOR CIRCULATION: Both distal, cervical, and intracranial vertebral arteries have appropriate enhancement and luminal d iameter. Left and right PICA artery origins are unremarkable. Both vertebral arteries supply a norm al-appearing basilar artery. The left P1 segment is unremarkable. The right [employer] has a origin and is unremarkable. PERFUSION CT: No evidence of increased mean transit time. No evidence of decreased flow or decreased volume. No e vidence of penumbra. IMPRESSION: 1. Unremarkable CT angiogram of the head and neck. No evidence of significant stenosis in either ca rotid artery or at the level of the [place]. 2. Unremarkable perfusion CT. 3. Results of the study discussed with Dr. Adrian 05/19/17 at 3:23 p.m. REM[facility]O CR
[2017-05-20] MEDS: Sodium Chloride 0.9% 1,000 ML IV SCH (16:17)
--- NOTE | 2017-05-20 20:05 | PRG ---
DATE OF SERVICE: 05/20/2017 SUBJECTIVE: Ms. Reagan is a pleasant 72-year-old female, who presented with an acute onset of right hemiparesis and dysarthria. She had MRI brain done today, which showed no acute intracranial abnormality. After a lengthy discussion with the patient's family, it is noted the patient has been under a lot of stress. Over the past few weeks, she has been involved in a property dispute and they had a meeting on Friday, which the meeting did not go well and she did not sleep on Friday and Friday prior to this event occurring. The patient's daughter mentioned that patient did complain of feeling depressed and she did mention that she does not want to live anymore and she is ready to meet her maker. OBJECTIVE: VITAL SIGNS: Blood pressure 134/79, pulse of 65, temperature of 97.6, respirations of 20, O2 sats of 93% on room air. GENERAL: Well-developed, well-nourished female, in no apparent distress. RESPIRATORY: Clear to auscultation bilaterally. CARDIOVASCULAR: Regular rate and rhythm. NEUROLOGICAL: Mental status: The patient is awake, alert, oriented x3. Speech and language: Fluent speech. Cranial nerves: Pupils are 3 mm and reactive. Visual dillard are intact. Face is symmetric. Motor exam showed normal tone and bulk with a 5/5 strength in both lower extremities. She has a positive Dempsey sign on the right lower extremity. IMAGING STUDIES: MRI brain without contrast was reviewed, which showed no acute intracranial abnormality. ASSESSMENT AND PLAN: 1. Right-sided weakness, likely due to conversion disorder. 2. Conversion disorder. 3. Major depressive disorder. Ms. Reagan is a pleasant 72-year-old female who presented with weakness on her right side of the body. Her MRI of the brain showed no acute intracranial abnormality. I had a lengthy discussion with the patient's daughter and found out that patient has been under a lot of extreme stress over the past 2 years, they have been going through property dispute with step children and they had a meeting with the tapper hand on Friday, which did not go so well and after that the patient has been extremely stressed out. She did not sleep well on Friday or Friday prior to this event occurring. In my opinion, her symptoms are likely related to her stress and anxiety. She likely has a conversion disorder. I spoke with the daughter and explained that she needs to be admitted to the inpatient rehab where she can slowly improve her strength and get back to her normal self. She had voiced concern that she does not want to go to the rehabilitation. I spoke with the patient and explained that she needs to go to rehabilitation in order to improve her recovery. I would recommend starting her on antidepressant medications to help with her mood. She is already on Zoloft at home 50 mg at bedtime which can be increased to 100 mg at bedtime. I have spent approximately 40 minutes for counseling and above discussion. NITESH
[2017-05-20] MEDS: Atorvastatin Calcium 20 MG TAB PO SCH (21:42)
[2017-05-20] MEDS: Loratadine 10 MG TAB PO SCH (21:43)
[2017-05-20] MEDS: Losartan 25 MG TAB PO SCH (21:43)
[2017-05-20] MEDS: Latanoprost 0.005% Ophth Soln 2.5 ml Bottle EA EYE SCH (21:44)
[2017-05-21 06:01] LABS: #Eosinphils 0.1 thou/uL (0.0-0.7); #Lymphocytes 1.4 thou/uL (1.20-3.40); #Monocytes 0.2 thou/uL (0.11-0.59); #Neutrophils 1.5 thou/uL (1.40-6.50); %Basophils 0.8 % (0.0-1.0); %Eosinophils 3.6 % (0.0-10.0); %Lymphocytes 42.8 % (21.0-51.0); %Monocytes 6.9 % (0.0-10.0); %Neutrophils 45.9 % (42.0-75.0); Hemoglobin 11.9 g/dL (12.0-16.0); Mean Corpuscular HGB CONC 33.2 g/dL (32.0-36.0); Mean Corpuscular Volume 93.4 fl (81.0-99.0); Mean Platelet Volume 6.7 fL (7.4-10.4); Platelet Count 230 thou/uL (130-400); RBC Distribution Width 11.6 % (11.5-14.5); Red Blood Cell (RBC) Count 3.85 mill/uL (4.20-5.40); White Blood Cell (WBC) Count 3.3 thou/uL (4.8-10.8)
[2017-05-21 06:07] LABS: Anion Gap 11 mmol/L (10-20); BUN (Urea Nitrogen) 13 mg/dL (9.8-20.1); Calc. Creatinine Clearance 67 mL/min (70-130); Calcium 8.9 mg/dL (7.8-10.44); Carbon Dioxide 25 mmol/L (23-31); Chloride 109 mmol/L (98-107); Estimated GFR-MDRD 72; Glucose 101 mg/dL (83-110); Potassium 3.5 mmol/L (3.5-5.1); Sodium 141 mmol/L (136-145)
[2017-05-21] MEDS: Sodium Chloride 0.9% 1,000 ML IV SCH ×2 (06:17→14:06)
--- NOTE | 2017-05-21 09:00 | PRG ---
DATE OF SERVICE: 05/21/2017 I reviewed all films and visited with Mrs. Reagan. MRI of the brain was negative. Overall, we hav e not identified a structural explanation for the patient's forgetfulness over the past several weeks , her recent fall, and her subjective complaints of right leg weakness and numbness. CT of the lumba r spine was satisfactory and all imaging of the neck and brain has also been satisfactory. Neurology is concluded that this likely represents a nonstructural etiology and I agree that we should focus o n her ambulation and rehabilitation and have no further recommendations for diagnostic testing. I di scussed this with her and her daughter and we will order the rehab screen.
[2017-05-21] MEDS: Heparin 5,000 UNITS/ML VIAL SC SCH ×2 (09:46→22:07)
[2017-05-21] MEDS: Aspirin 81 mg Enteric Coated Tablet PO SCH (09:47)
[2017-05-21] MEDS: Gabapentin 100 MG CAP PO SCH ×3 (09:47→22:07)
[2017-05-21] MEDS: Hydrochlorothiazide 25 MG TAB PO SCH (09:47)
[2017-05-21] MEDS: Acetaminophen 500 MG TAB PO PRN (12:01)
[2017-05-21] MEDS: Clotrimazole/Betamethasone Cream 45 GM TUBE TOP SCH (14:10)
--- NOTE | 2017-05-21 14:20 | PDOC.PN ---
- Subjective Encounter Start Date: 05/21/17 Encounter Start Time: 14:17 CC: back pain sub: pt still c/o back pain - Objective Vital Signs & Weight: Vital Signs (12 hours) Temp Pulse Pulse Resp BP BP BP 05/21/17 11:43 98.2 F 66 18 164/79 H 05/21/17 09:57 170/71 H 05/21/17 09:09 61 151/71 H 05/21/17 08:37 147/80 H 05/21/17 08:00 98.2 F 66 18 92/54 L 05/21/17 05:25 97.8 F 69 16 110/62 Pulse Ox 05/21/17 11:43 97 05/21/17 09:57 05/21/17 09:09 05/21/17 08:37 05/21/17 08:00 94 L 05/21/17 05:25 92 L Weight Weight 146 lb 6.4 oz I&O: 05/20/17 05/21/17 05/22/17 06:59 06:59 06:59 Intake Total 1260 Balance 1260 Result Diagrams: 05/21/17 05:36 05/21/17 05:36 Dx/Plan - Plan Physical Examination Constitutional: NAD HEENT: PERRLA, moist MMs, sclera anicteric Neck: no nodes, no JVD, supple Respiratory: no wheezing, no rales, no rhonchi Cardiovascular: RRR, no significant murmur, no rub Gastrointestinal: soft, non-tender, no distention Musculoskeletal: no edema, pulses present Neurological: normal sensation AAO x 3 Dx/Plan (1) Right leg weakness Code(s): R29.898 - OTH SYMPTOMS AND SIGNS INVOLVING THE MUSCULOSKELETAL SYSTEM Status: Acute (2) Spinal surgery in prior 3 months Code(s): Z98.890 - OTHER SPECIFIED POSTPROCEDURAL STATES Status: Acute (3) Benign hypertension Code(s): I10 - ESSENTIAL (PRIMARY) HYPERTENSION Status: Chronic - Plan * MRI brain no acute disease * Appreciate neurosurgery and neuro input * continue with current medical management * PT/OT [facility] board. needs placement * medically stable * case and plan d/w patient and family at length
[2017-05-21] MEDS: Meclizine HCl 25 MG TAB PO PRN (15:15)
[2017-05-21] MEDS: Carvedilol 6.25 MG TAB PO SCH (18:26)
[2017-05-21] MEDS: Losartan 25 MG TAB PO SCH (22:07)
[2017-05-21] MEDS: Atorvastatin Calcium 20 MG TAB PO SCH (22:07)
[2017-05-21] MEDS: Loratadine 10 MG TAB PO SCH (22:07)
[2017-05-21] MEDS: Latanoprost 0.005% Ophth Soln 2.5 ml Bottle EA EYE SCH (22:08)
[2017-05-22 06:04] LABS: #Eosinphils 0.2 thou/uL (0.0-0.7); #Lymphocytes 1.6 thou/uL (1.20-3.40); #Monocytes 0.3 thou/uL (0.11-0.59); #Neutrophils 2.2 thou/uL (1.40-6.50); %Basophils 0.5 % (0.0-1.0); %Eosinophils 4.1 % (0.0-10.0); %Lymphocytes 36.2 % (21.0-51.0); %Monocytes 7.4 % (0.0-10.0); %Neutrophils 51.8 % (42.0-75.0); Hemoglobin 11.9 g/dL (12.0-16.0); Mean Corpuscular HGB CONC 33.8 g/dL (32.0-36.0); Mean Corpuscular Hemoglobin 31.6 pg (27.0-31.0); Mean Corpuscular Volume 93.4 fl (81.0-99.0); Mean Platelet Volume 6.8 fL (7.4-10.4); Platelet Count 203 thou/uL (130-400); RBC Distribution Width 11.6 % (11.5-14.5); Red Blood Cell (RBC) Count 3.77 mill/uL (4.20-5.40); White Blood Cell (WBC) Count 4.3 thou/uL (4.8-10.8)
[2017-05-22 06:18] LABS: Anion Gap 10 mmol/L (10-20); BUN (Urea Nitrogen) 15 mg/dL (9.8-20.1); Calc. Creatinine Clearance 63 mL/min (70-130); Carbon Dioxide 27 mmol/L (23-31); Chloride 106 mmol/L (98-107); Estimated GFR-MDRD 67; Glucose 108 mg/dL (83-110); Potassium 3.3 mmol/L (3.5-5.1); Sodium 140 mmol/L (136-145)
--- NOTE | 2017-05-22 11:40 | PDOC.PN ---
- Subjective Encounter Start Date: 05/22/17 Encounter Start Time: 14:54 cc: back pain sub: pt c/o some rt leg weakness - Objective Vital Signs & Weight: Vital Signs (12 hours) Temp Pulse Resp BP Pulse Ox 05/22/17 08:13 98.2 F 63 24 H 108/62 93 L 05/22/17 03:48 98.4 F 62 14 108/62 92 L Weight Weight 146 lb 6.4 oz I&O: 05/21/17 05/22/17 05/23/17 06:59 06:59 06:59 Intake Total 1260 Balance 1260 Result Diagrams: 05/22/17 05:17 05/22/17 05:17 Phys Exam - Physical Examination Constitutional: NAD Neck: no JVD Respiratory: no wheezing, no rales, no rhonchi Cardiovascular: RRR, no significant murmur, no rub Musculoskeletal: no edema Dx/Plan - Plan [id number] dc summary dictated 1. RT LEG WEAKNESS 2. HTN 3. Spinal surgery
[2017-05-22] MEDS: Heparin 5,000 UNITS/ML VIAL SC SCH ×2 (11:51→21:25)
[2017-05-22] MEDS: Hydrochlorothiazide 25 MG TAB PO SCH (11:52)
[2017-05-22] MEDS: Carvedilol 6.25 MG TAB PO SCH ×2 (11:52→17:41)
[2017-05-22] MEDS: Meclizine HCl 25 MG TAB PO PRN ×2 (11:52→21:25)
[2017-05-22] MEDS: Aspirin 81 mg Enteric Coated Tablet PO SCH (11:53)
[2017-05-22] MEDS: Gabapentin 100 MG CAP PO SCH ×3 (11:53→21:26)
[2017-05-22] MEDS: Sodium Chloride 0.9% 1,000 ML IV SCH (13:47)
--- NOTE | 2017-05-22 14:10 | RAD ---
2 VIEWS RIGHT FOOT: Date: 05/22/17 HISTORY: Mid right foot pain. FINDINGS: Lisfranc joint appears normally aligned based on single AP view of foot. No obvious fracture or dislo cation seen. Mild osteoarthritis is seen involving the first metatarsophalangeal joint. No other osse ous abnormality. IMPRESSION: No acute osseous abnormality right foot. POS: [facility]
[2017-05-22] MEDS: Latanoprost 0.005% Ophth Soln 2.5 ml Bottle EA EYE SCH (21:25)
[2017-05-22] MEDS: Losartan 25 MG TAB PO SCH (21:26)
[2017-05-22] MEDS: Atorvastatin Calcium 20 MG TAB PO SCH (21:27)
[2017-05-22] MEDS: Loratadine 10 MG TAB PO SCH (21:27)
[2017-05-23 04:59] LABS: #Eosinphils 0.2 thou/uL (0.0-0.7); #Lymphocytes 1.5 thou/uL (1.20-3.40); #Monocytes 0.4 thou/uL (0.11-0.59); #Neutrophils 2.8 thou/uL (1.40-6.50); %Basophils 0.5 % (0.0-1.0); %Eosinophils 3.6 % (0.0-10.0); %Lymphocytes 30.6 % (21.0-51.0); %Monocytes 7.2 % (0.0-10.0); %Neutrophils 58.1 % (42.0-75.0); Hemoglobin 11.8 g/dL (12.0-16.0); Mean Corpuscular HGB CONC 34.2 g/dL (32.0-36.0); Mean Corpuscular Hemoglobin 31.9 pg (27.0-31.0); Mean Corpuscular Volume 93.2 fl (81.0-99.0); Mean Platelet Volume 6.7 fL (7.4-10.4); Platelet Count 194 thou/uL (130-400); RBC Distribution Width 11.6 % (11.5-14.5); Red Blood Cell (RBC) Count 3.71 mill/uL (4.20-5.40); White Blood Cell (WBC) Count 4.8 thou/uL (4.8-10.8)
[2017-05-23 05:12] LABS: Anion Gap 13 mmol/L (10-20); BUN (Urea Nitrogen) 17 mg/dL (9.8-20.1); Calc. Creatinine Clearance 67 mL/min (70-130); Calcium 9.1 mg/dL (7.8-10.44); Carbon Dioxide 25 mmol/L (23-31); Chloride 105 mmol/L (98-107); Estimated GFR-MDRD 72; Glucose 98 mg/dL (83-110); Potassium 3.3 mmol/L (3.5-5.1); Sodium 140 mmol/L (136-145)
[2017-05-23] MEDS: Aspirin 81 mg Enteric Coated Tablet PO SCH (09:56)
[2017-05-23] MEDS: Heparin 5,000 UNITS/ML VIAL SC SCH (09:56)
[2017-05-23] MEDS: Carvedilol 6.25 MG TAB PO SCH ×2 (09:56→15:51)
[2017-05-23] MEDS: Gabapentin 100 MG CAP PO SCH ×2 (09:56→15:47)
[2017-05-23] MEDS: Meclizine HCl 25 MG TAB PO PRN (10:04)
--- NOTE | 2017-05-23 12:03 | PDOC.PN ---
- Subjective Encounter Start Date: 05/23/17 Encounter Start Time: 07:45 Subjective: no new complaints -: eating breakfast - Objective MAR Reviewed: Yes Vital Signs & Weight: Vital Signs (12 hours) Temp Pulse Pulse Pulse Resp BP BP 05/23/17 11:30 98.3 F 67 18 05/23/17 09:25 72 71 107/56 L 111/72 05/23/17 08:00 97.8 F 62 18 05/23/17 07:25 97.8 F 62 18 05/23/17 04:00 97.7 F 62 18 05/23/17 00:00 97.6 F 61 18 BP Pulse Ox 05/23/17 11:30 91/51 L 95 05/23/17 09:25 05/23/17 08:00 05/23/17 07:25 109/60 94 L 05/23/17 04:00 92/50 L 97 05/23/17 00:00 104/56 L 92 L Weight Weight 146 lb 6.4 oz I&O: 05/22/17 05/23/17 05/24/17 06:59 06:59 06:59 Intake Total 480 Balance 480 Result Diagrams: 05/23/17 04:29 05/23/17 04:29 Phys Exam - Physical Examination HEENT: PERRLA, moist MMs Neck: no JVD, supple Respiratory: no wheezing, no rales Cardiovascular: RRR, no significant murmur Gastrointestinal: soft, non-tender, positive bowel sounds Musculoskeletal: no edema, pulses present Neurological: normal sensation, moves all 4 limbs Psychiatric: A&O x 3 Dx/Plan (1) Physical deconditioning Code(s): R53.81 - OTHER MALAISE Status: Acute (2) Right leg weakness Code(s): R29.898 - OTH SYMPTOMS AND SIGNS INVOLVING THE MUSCULOSKELETAL SYSTEM Status: Acute Comment: due to conversion disorder (3) Anxiety and depression Code(s): F41.9 - ANXIETY DISORDER, UNSPECIFIED; F32.9 - MAJOR DEPRESSIVE DISORDER, SINGLE EPISODE, UNSPECIFIED Status: Chronic Comment: has major depression (4) GERD (gastroesophageal reflux disease) Code(s): K21.9 - GASTRO-ESOPHAGEAL REFLUX DISEASE WITHOUT ESOPHAGITIS Status: Chronic Qualifiers: Esophagitis presence: without esophagitis Qualified Code(s): K21.9 - Gastro -esophageal reflux disease without esophagitis (5) Hypotension Status: Chronic Qualifiers: Hypotension type: hypotension due to drug Qualified Code(s): I95.2 - Hypotension due to drugs - Plan dc cozaar and hctz, sbp around 100, continue coreg -: no coumadin for 2 weeks, d/w nsx -: may dc to rehab if accepted, on asp and lipitor -: is on zoloft, needs outpt psych appt plus counselling -: has amb 48ft with rw * . Review of Systems - Medications/Allergies Allergies/Adverse Reactions: Allergies Allergy/AdvReac Type Severity Reaction Status Date / Time codeine Allergy Intermediate DISORIENTED Verified 10/06/15 14:53 Penicillins Allergy Intermediate Rash Verified 10/06/15 14:53 lactose Allergy gi upset Verified 04/23/17 11:59 tizanidine [From Zanaflex] Allergy Verified 05/01/17 11:24 tramadol Allergy Verified 10/10/15 21:29 Medications: Current Medications Acetaminophen (Tylenol) 1,000 mg PO Q6H PRN PRN Reason: Pain Last Admin: 05/21/17 12:01 Dose: 1,000 mg Aspirin (Ecotrin) 81 mg PO DAILY [facility] Last Admin: 05/23/17 09:56 Dose: 81 mg Atorvastatin Calcium (Lipitor) 20 mg PO HS [facility] Last Admin: 05/22/17 21:27 Dose: 20 mg Benzonatate (Tessalon) 200 mg PO TID PRN PRN Reason: Cough Betamethasone/Clotrimazole (Lotrisone Cream) 0 gm TOP BID [facility] Last Admin: 05/23/17 09:57 Dose: 1 applic Carvedilol (Coreg) 6.25 mg PO BID-WM [facility] Last Admin: 05/23/17 09:56 Dose: 6.25 mg Clobetasol Propionate (Temovate 0.05% Cream) 0 gm TOP BID PRN PRN Reason: PSORIASIS Docusate Calcium (Surfak) 240 mg PO BID PRN PRN Reason: Constipation Gabapentin (Neurontin) 100 mg PO TID [facility] Last Admin: 05/23/17 09:56 Dose: 100 mg Heparin Sodium (Porcine) (Heparin) 5,000 units SC Q12HR [facility] Last Admin: 05/23/17 09:56 Dose: 5,000 units Latanoprost (Xalatan 0.005% Ophth Soln) 1 drop EA [facility] Last Admin: 05/22/17 21:25 Dose: 1 drop Loratadine (Claritin) 10 mg PO [facility] Last Admin: 05/22/17 21:27 Dose: 10 mg Meclizine HCl (Antivert) 25 mg PO TID PRN PRN Reason: DIZZNESS Last Admin: 05/23/17 10:04 Dose: 25 mg Multi-Ingredient Lotion (Lubriderm Lotion) 0 ml TOP PRN PRN PRN Reason: EZCEMA Pantoprazole Sodium (Protonix) 40 mg PO BID [facility] Last Admin: 05/23/17 09:56 Dose: 40 mg Sertraline HCl (Zoloft) 50 mg PO [facility] Last Admin: 05/22/17 21:27 Dose: 50 mg
--- NOTE | 2017-05-23 13:07 | DIS ---
DATE OF ADMISSION: 05/19/2017 DATE OF DISCHARGE: 05/22/2017 DISCHARGE DIAGNOSES: 1. Benign hypertension. 2. History of recent spinal surgery 3 months back. 3. Right leg weakness. DISCHARGE MEDICATION: See med rec form. CONSULTANTS DURING THE HOSPITAL STAY: 1. Neurology. 2. Neurosurgery. PROCEDURES IN THE HOSPITAL STAY: 1. MRI brain. 2. CT lumbar spine and cervical spine. 3. CT angiogram. HOSPITAL COURSE: The patient is 72-year-old male admitted secondary to right leg weakness. The patient was seen by the Neurosurgery and Neurology, both recommended no further treatment. The patient had an MRI brain done during the hospital stay which was negative for any acute stroke. The patient is qualified for further rehab, so patient was transferred to rehabilitation. Right foot pain. The patient complains of right foot pain. The patient has x- ray foot was done, which was negative for any acute fracture. Hypertension, blood pressure was stable stable during hospital stay DISCHARGE PHYSICAL EXAMINATION: On date of discharge, VITAL SIGNS: Blood pressure is 167/85, later on it was 121/75, temperature 98, heart rate 62, respiration rate 16, pulse ox 98%. GENERAL: The patient was comfortable. CARDIOVASCULAR: S1, S2 present. Regular rate and rhythm. RESPIRATORY: No wheezing, no rhonchi. ABDOMEN: Soft, nontender. CRANIAL NERVES SYSTEM: Awake, follows commands. PSYCHIATRIC: Mood, calm at this time. The patient is stable at the time of discharge. Discharge time 45 minutes. Discussed with the patient, RN, and shoe caser. NITESH
[2017-05-23 15:53] VITALS: BP 100/55; TEMP 97.4
== END 2017-05-23 17:20 | DRG 880 ==
LOC: ERS 13:03 → 2SE 15:55
PROVIDERS: ADMIT Internal Medicine; ATTEND Internal Medicine
DX: F44.4 Conversion disorder with motor symptom or deficit (principal); G81.91 Hemiplegia, unspecified affecting right dominant side; F32.9 Major depressive disorder, single episode, unspecified; Z98.1 Arthrodesis status; I10 Essential (primary) hypertension; F41.9 Anxiety disorder, unspecified; K21.9 Gastro-esophageal reflux disease without esophagitis
CPT/HCPCS: 0042T; 36415; 36416; 70450; 70496; 70498; 70551; 71045; 72125; 72131; 80048; 80053; 80061; 82550; 82553; 84484; 85025; 85610; 85652; 85730; 86140; 86850; 86900; 86901; 93005; G8978-GP-CL; G8979-GP-CJ; G8987-GO-CL; G8988-GO-CI; G9162-GN-CK; G9163-GN-CI; J1644; J3480; J7050

== ENCOUNTER 2017-07-29 15:02 | Outpatient (CLI) | payer MEDICARE, BC ==
--- NOTE | 2017-07-29 16:42 | RAD ---
LUMBAR SPINE 2 VIEWS: Date: 07/29/17 HISTORY: Back pain. Follow-up surgery. COMPARISON: 05/13/17. FINDINGS: Scoliotic curvature with convexity to the right is again noted. Pedicle screws on the right transfix L4 and L5. These show no significant change when compared to 05/13/17. There are moderate degenerativ e changes at the lumbar spine. Slight posterolisthesis at L3-4 is again noted and unchanged. Loss of disc space and slight posterolisthesis at L2-3 is again noted and unchanged. Degenerative osteophytes are prominent anteriorly at L2-3. IMPRESSION: Postoperative and degenerative changes of the lumbar spine appear stable from 05/13/17. POS: [facility]
== END 2017-07-29 15:03 | disposition home or self-care (01) ==
LOC: TBSIIMAG 15:02
PROVIDERS: ATTEND Neurological Surgery
DX: M48.061 Spinal stenosis, lumbar region without neurogenic claudication (principal); M47.896 Other spondylosis, lumbar region; Z98.890 Other specified postprocedural states
CPT/HCPCS: 72100

== ENCOUNTER 2017-08-15 09:02 | Outpatient (CLI) | payer MEDICARE, BC ==
--- NOTE | 2017-08-15 09:42 | RAD ---
LEFT HIP 2 VIEWS: Date: 08/15/17 HISTORY: Hip pain. FINDINGS: Femoral head contour is normal. There is no evidence of fracture. Mild degenerative change noted. IMPRESSION: No evidence of acute fracture. POS: [facility]
--- NOTE | 2017-08-15 09:45 | RAD ---
RIGHT HIP 2 VIEWS: Date: 08/15/17 HISTORY: Hip pain. FINDINGS: Mild degenerative change at the right hip. No evidence of fracture or other osseous abnormality. IMPRESSION: No acute fracture. POS: [facility]
--- NOTE | 2017-08-15 11:35 | MRI ---
MRI THORACIC SPINE: TECHNIQUE: Multiplanar, multisequential imaging of thoracic spine obtained. INDICATION: Lumbar radiculopathy is given for region for pain. Right-sided pain in the lower back with radiation to both legs. FINDINGS: The thoracic vertebrae maintain normal height and alignment. Disk spaces are normally preserved. Mi nimal degenerative osteophytes are present. There is no evidence of significant disk bulge or disk p rotrusion within the visualized thoracic levels. There is abnormal signal seen on the right at T10. This appears to involve the right T10 RIB at the costovertebral junction and the STIR images also show evidence of edema within the right pedicle of T 10, although this is not as well appreciated on axial T1. Findings would indicate edema and/or bone contusion/fracture involving the posterior right T10 vertebra with extension into the pedicle and als o involvement of the right T10 rib at the right costovertebral junction. No other edema or signal abnormality identified. IMPRESSION: Edema indicating injury at the T10 vertebrae on the right. There appears to be involvement of the po sterior right T10 vertebral body with extension into the right pedicle and involvement of the right 1 0th rib at the costovertebral junction. POS: [facility]
--- NOTE | 2017-08-15 13:15 | MRI ---
MRI LUMBAR SPINE WITHOUT CONTRAST: Multiplanar multisequential imaging of the lumbar spine obtained. INDICATION: Lumbar radiculopathy. Lumbar surgery in June of 2017. Fall with back pain. FINDINGS: Pedicle screws are seen at L4 and L5 on the right. Lumbar vertebrae maintain height. Degenerative d isk changes are prominent at the L2-3 level with loss of disk space and degenerative end plate change . Prominent anterior osteophytes at this level. On sagittal STIR and T1, there is evidence of edema in the T11 rib on the right at the costovertebral junction. CT of thoracic spine performed earlier today demonstrated edema and possible fracture at the T10 costovertebral junction, and this may also represent mild injury at the T11 rib on the right. At L1-2, no disk bulge or protrusion. No central canal or foraminal stenosis. At L2-3, there is a mild retrolisthesis. There is a broad-based disk bulge. Mild facet arthrosis an d hypertrophy. Mild central canal stenosis. Mild right foraminal encroachment due to asymmetric dis k bulge and facet hypertrophy. At L3-4, disk bulge and facet hypertrophy. Mild to moderate central canal stenosis. Bilateral jai inal narrowing. At L4-5, mild disk bulge. Facet hypertrophy. Mild central canal stenosis. Bilateral foraminal sten osis due to disk bulge and facet hypertrophy. Postoperative changes are seen at L4-5. There is a fluid signal collection in the subcutaneous tissu es posterior to the thecal sac at the L5 level which extends over a craniocaudal length of 2.2 cm wit h an AP dimension of 1.0 cm. I do not detect communication with the thecal sac. At L5-S1, no significant disk bulge. Facet hypertrophy. No significant central canal or foraminal s tenosis. IMPRESSION: 1. Postoperative changes posteriorly at L4-5 with laminectomy change. There is a fluid signal colle ction in the posterior soft tissues posterior to the thecal sac with measurements given above. Consi derations include hematoma, seroma, and abscess. This does not appear to communicate with the thecal sac. 2. Mild retrolisthesis at L3-4 with moderate central canal stenosis as described above. 3. Mild retrolisthesis of L2-3 with broad-based bulge resulting in mild central canal stenosis as de scribed above. 4. Questioned edema in the T11 rib on the right at the costovertebral junction. POS: [facility]
== END 2017-08-15 09:03 | disposition home or self-care (01) ==
LOC: TBSIIMAG 09:02
PROVIDERS: ATTEND Neurological Surgery
DX: M51.16 Intervertebral disc disorders with radiculopathy, lumbar region (principal); M25.552 Pain in left hip; M25.551 Pain in right hip; M48.061 Spinal stenosis, lumbar region without neurogenic claudication; M43.16 Spondylolisthesis, lumbar region; R60.0 Localized edema; Z98.890 Other specified postprocedural states
CPT/HCPCS: 72146; 72148

== ENCOUNTER 2017-08-21 09:10 | Outpatient (CLI) | payer MEDICARE, BC ==
--- NOTE | 2017-08-21 12:26 | MRI ---
LUMBAR SPINE MRI WITH IV CONTRAST: DATE: 08/21/17. COMPARISON: 08/15/17 noncontrast-enhanced MRI. TECHNIQUE: Multiplanar, multisequence MR imaging of the lumbar spine is obtained with contrast. Images include sagittal and axial T1 postcontrast imaging as well as axial fat-saturated T1 weighted imaging. FINDINGS: Evaluation for central canal and/or neural foraminal stenosis is suboptimal on this examination. Imaged retroperitoneal structures appear grossly unremarkable. There are right-sided pedicle screws at the L4 and L5 level, not well characterized on this exam. There is a nonspecific small rim-enhancing fluid collection posterior to the L4-5 intervertebral disk space measuring in the 1.1 x 0.5 cm range. There is surrounding enhancement of the paraspinal muscu lature posteriorly suggesting scar. There is increased signal intensity anterior to the distal cord and nerve roots of the cauda equina o n the fat-saturated and xdr-sjy-jnhyevevs axial imaging which is felt likely to be artifactual in gurdeep ure as this is not seen on the sagittal T1 weighted imaging. No discrete enhancement of nerve roots of the cauda equina. Assessment for enhancement of the nerve roots of the cauda equina distally is limited on the basis of artifact from the lower lumbar spine muse rdware present on the right. At T12-L1, and L1-2, there is no obvious central canal or neural foraminal stenosis. At L2-3, there is disk space narrowing and disk desiccation with vacuum disk formation as well as pro bable mild central canal stenosis and mild bilateral neural foraminal stenosis. At L3-4, there is prominent bilateral facet hypertrophy with mild central canal and mild bilateral ne ural foraminal stenosis suspected. At the L4-5 level, there is no significant central canal stenosis status post bilateral laminectomy. At L5-S1, there is bilateral facet hypertrophy with no significant central canal or neural foraminal stenosis. Please refer to the noncontrast-enhanced examination performed 08/15/17 for full assessmen t of central canal and neural foraminal stenosis. IMPRESSION: Postoperative and degenerative changes as described above. There is a small rim-enhancing fluid mauri ection posterior to the thecal sac at the postoperative site which could be sterile or infected. Cli nical correlation is required. Imaging cannot make this distinction. There is evidence of enhanceme nt of the adjacent paraspinal soft tissues which may be reactive in nature or on the basis of scar. POS: [facility]
--- NOTE | 2017-08-21 12:34 | MRI ---
THORACIC SPINE MRI WITH CONTRAST: DATE: 08/21/17. COMPARISON: Noncontrast-enhanced thoracic spine MRI 08/15/17. HISTORY: Bilateral leg pain, prior surgery. TECHNIQUE: Multiplanar, multisequence MR imaging of the thoracic spine is obtained with IV contrast. FINDINGS: Evaluation for central canal and/or neural foraminal stenosis is limited on this examination. Refer to the 08/15/17 examination for assessment of central canal and/or neural foraminal stenosis. No ante rolisthesis or retrolisthesis is seen. Prior MRI demonstrated a nonspecific lesion in the region of the pedicle on the right at the T10 leve l. On this examination, there is enhancement in this region. The enhancement appears to involve the right T10 pedicle, the right costovertebral joint in this region, as well as the medial-most aspect of the right 10th rib. Please note that the axial fat-saturated T1 weighted imaging is markedly limi elliott secondary to motion. No obvious additional area of abnormal enhancement is seen. The axial non- fat-saturated T1 weighted imaging is also secondary to motion. IMPRESSION: Limited examination secondary to motion and lack of precontrast imaging. However, precontrast imagin g was performed 08/15/17, and reference to that imaging is required for possible central canal and/or neural foraminal stenosis. The study does demonstrate a focal area of enhancement involving the righ t-sided pedicle at T10 extending into the region of the medial aspect of the right 10th rib and invol ving the associated right costovertebral joint. This could indicate edema on the basis of trauma/fra cture. However, septic arthritis with adjacent osteomyelitis is a possibility. Clinical correlation is essential. A CT examination may be beneficial for full assessment. CODE T POS: [facility]
== END 2017-08-21 09:11 | disposition home or self-care (01) ==
LOC: TBSIIMAG 09:10
PROVIDERS: ATTEND Neurological Surgery
DX: M47.26 Other spondylosis with radiculopathy, lumbar region (principal)
CPT/HCPCS: 72146; 72147; 72148; 72149; 82565

== ENCOUNTER 2018-10-15 13:03 | Inpatient (IN) | payer MEDICARE, BC ==
[2018-10-15 13:17] LABS: #Basophils 0.1 thou/uL (0.0-0.2); #Eosinphils 0.1 thou/uL (0.0-0.7); #Lymphocytes 1.9 thou/uL (1.20-3.40); #Monocytes 0.4 thou/uL (0.11-0.59); #Neutrophils 4.1 thou/uL (1.40-6.50); %Basophils 0.9 % (0.0-1.0); %Eosinophils 1.7 % (0.0-10.0); %Lymphocytes 28.7 % (21.0-51.0); %Monocytes 6.5 % (0.0-10.0); %Neutrophils 62.2 % (42.0-75.0); Mean Corpuscular HGB CONC 34.5 g/dL (32.0-36.0); Mean Corpuscular Hemoglobin 32.1 pg (27.0-31.0); Mean Corpuscular Volume 93.1 fL (78.0-98.0); Mean Platelet Volume 6.9 fL (7.4-10.4); Platelet Count 209 thou/uL (130-400); RBC Distribution Width 12.2 % (11.5-14.5); Red Blood Cell (RBC) Count 4.36 mill/uL (4.20-5.40); White Blood Cell (WBC) Count 6.6 thou/uL (4.8-10.8)
--- NOTE | 2018-10-15 13:19 | CT ---
CT BRAIN NONCONTRAST: DATE: 10/15/2018 HISTORY: 73-year-old female with altered mental status, seizure-like event, and anisocoria with bilateral uppe r extremity weakness. Dr. Fox verbally gave this stroke alert protocol report by telephone to Dr. Hagen of the emergency Department at 1:15 PM on 10/15/2018 FINDINGS: There is no evidence of acute intra-axial or extra-axial hemorrhage. There is no midline shift or any other mass effect. There is no extra-axial fluid collection. There is no evidence of obstructive hydrocephalus. Calvarium is intact. IMPRESSION: No acute intracranial findings.
[2018-10-15 13:23] LABS: PTT 26.3 SEC (22.9-36.1); Prothrombin Time 12.8 SEC (12.0-14.7)
[2018-10-15 13:30] LABS: ALT (SGPT) 18 U/L (8-55); AST (SGOT) 11 U/L (5-34); Albumin 4.6 g/dL (3.4-4.8); Alkaline Phosphatase 57 U/L (40-150); Anion Gap 17 mmol/L (10-20); BUN (Urea Nitrogen) 18 mg/dL (9.8-20.1); Bilirubin, Total 0.6 mg/dL (0.2-1.2); CK (CPK) 38 U/L (29-168); Calc. Creatinine Clearance 0 mL/min (70-130); Calcium 10.3 mg/dL (7.8-10.44); Carbon Dioxide 19 mmol/L (23-31); Chloride 109 mmol/L (98-107); Estimated GFR-MDRD 59; Globulin 2.9 g/dL (2.4-3.5); Glucose 106 mg/dL (83-110); Potassium 3.4 mmol/L (3.5-5.1); Protein, Total 7.5 g/dL (6.0-8.3); Sodium 142 mmol/L (136-145)
--- NOTE | 2018-10-15 13:44 | CT ---
CT ANGIOGRAM NECK WITH CONTRAST CT ANGIOGRAM BRAIN WITH CONTRAST: DATE: 10/15/2018 HISTORY: 73-year-old female with acute stroke symptoms: Altered mental status, bilateral upper extremity weakn ess, and anisocoria. Dr. Fox verbally gave this stat stroke alert protocol report by telephone to Dr. Hagen of the emerg ency Department at 1:38 PM on 10/15/2018. TECHNIQUE: After IV contrast injection, arterial bolus chasing technique scan performed from aortopulmonic windo w to vertex of head. Coronal and sagittal 3-D MIP reconstructions. FINDINGS: No evidence of M1 segment thrombus, occlusion, or high-grade stenosis involving the bilateral middle cerebral arteries. origin of right posterior cerebral artery. No acquired occlusion of posterior circulation of solomon of [place]. Right vertebral artery is dominant. Difficult to evaluate degree of stenosis, but probably moderate, at origins of bilateral vertebral ar teries and probably moderate stenosis at origin of left common carotid artery. Mild stenosis due to atherosclerotic mild plaque at bilateral proximal internal carotid arteries. Tortuosity of most of th e arteries of the neck. No stenosis of right common carotid, brachiocephalic, or right subclavian arteries. IMPRESSION: 1) no evidence of M1 segment middle cerebral artery thrombosis. 2) mild atherosclerosis with mild stenosis of proximal bilateral internal carotid arteries. 3) questionable moderate stenosis at origins of bilateral vertebral arteries and left common carotid artery.
[2018-10-15] MEDS ORDERED: Aspirin 300 MG Suppository ONE (13:56)
[2018-10-15 14:19] LABS: Acetaminophen Less than 6.0 mcg/mL (10.0-30.0); Alcohol Less than 10 mg/dL (Less than 10); Salicylate Less than 8.0 mg/dL (15.0-30.0)
--- NOTE | 2018-10-15 14:43 | RAD ---
PORTABLE AP CHEST X-RAY: 10/15/18 HISTORY: Weakness in bilateral legs. History of CVA in May. COMPARISON: 05/19/17. FINDINGS: There has been interval placement of a dorsal column stimulator leads which overlie the thoracic spin e with tip overlying T7 vertebral body. Surgical clips overlie the right upper quadrant. There is persistent mild elevation of the right hemidiaphragm. The cardiac silhouette and pulmonary v asculature are within normal limits. The lungs are clear. There has been no other interval change fro m the prior exam. IMPRESSION: 1. No acute cardiopulmonary process. 2. Stable mild elevation right hemidiaphragm. POS: [facility]
[2018-10-15] MEDS ORDERED: ISOVUE-370 76%-LOCM 1 ML ONE (16:00)
[2018-10-15 17:05] LABS: Troponin I Less than 0.010 ng/mL (< 0.028)
[2018-10-15] MEDS ORDERED: hydrALAZINE 20 MG/ML VIAL SLOW IVP PRN (18:14)
[2018-10-15] MEDS ORDERED: Ondansetron ODT 4 MG TAB PO PRN (18:14)
[2018-10-15] MEDS ORDERED: Ondansetron PF 4 MG/2 ML Vial IVP PRN (18:14)
[2018-10-15] MEDS ORDERED: Labetalol HCl 100 MG/20 ML VIAL SLOW IVP PRN (18:14)
[2018-10-15 19:48] VITALS: BMI 28.0
[2018-10-15 19:54] LABS: Bacteria/HPF None Seen HPF (None Seen); Bilirubin Negative (Negative); Blood, Urine Negative (Negative); Clarity Clear (Clear); Glucose, Urine (Dipstick) Normal (Negative); Leukocyte Negative Leu/uL (Negative); Nitrite Negative (Negative); Protein, Urine (Dipstick) Negative (Neg-Trace); RBC/HPF 0-3 HPF (0-3); Squamous Epithelial 0-3 HPF (0-3); Urobilinogen Normal mg/dL (Less than 2); WBC/HPF None Seen HPF (0-3)
[2018-10-15 19:59] LABS: Urine Culture Reflex No No
[2018-10-15 20:15] LABS: Troponin I Less than 0.010 ng/mL (< 0.028)
[2018-10-15] MEDS ORDERED: Atorvastatin Calcium 40 MG TAB PO SCH (21:00)
[2018-10-15] MEDS: Acetaminophen 500 MG TAB PO PRN (21:04)
--- NOTE | 2018-10-16 00:37 | HP ---
CHIEF COMPLAINT: Seizure activity. HISTORY OF PRESENT ILLNESS: The patient is a 73-year-old female with past medical history significant for 2 prior CVAs, the most recent one year ago, where the patient did receive tPA, persistent low back pain, status post L4-L5 laminectomy several years ago, now with nerve stimulator placed within the last couple of months, hypertension, history of bladder mesh placement, who presented to the hospital after her daughter witnessed some seizure-like activity at home. The patient had been in her usual state of health up until sometime around noon today. The patient was working outside in her yard along with her and daughter. She was working in the flower beds and doing some spraying for bugs. Her was working on the roof and came down from the ladder, and he appeared a bit unsteady on his feet, so she went to help him and get him some water. On return from getting the patient's some water, she herself began to feel some unsteadiness in her legs bilaterally. She felt as if her legs would come out from under her. She sat down in a chair, and then when she stood back up, both of her upper extremities and both of her lower extremities began shaking. Her daughter witnessed this activity, and her mother as well had some confusion and blurred vision. EMS was immediately called and she was taken to our facility for further workup. On arrival, the patient was unable to answer questions. EMS reported that she was not following commands, was talking, but altered. She exhibited similar behavior on arrival, praying, but not answering questions. Shortly after arrival to the ER, her confusion resolved and she was back to baseline. She requested adamantly that she wanted to be transferred to [facility], although she was not accepted secondary to lack of functioning EEG equipment. Regarding her NIH score and neurologic deficits, on my exam, she noted some right upper extremity weakness, but this was not noted in previous NIH assessments. In any case, tPA was not given. At the time of my exam, she is outside of the tPA window. Her chief complaint to me is some abdominal pain and some abdominal discomfort. Dr. Candelario and I evaluated patient again on the floor , and her RUE weakness had resolved. Workup has included a CTA of the head and neck, which was negative for any thrombus or acute finding. Her CT of the brain was negative. Her prolactin was negative as well. The patient continued to complain of some abdominal pain, that was worsening up on the floor, with complaints of inability to void. Cole was placed and 800 mL of output was obtained. The patient is currently resting comfortably. REVIEW OF SYSTEMS: A 12-point review of systems was performed. The patient states that since her placement of her nerve stimulator, she has had some intermittent bilateral lower extremity tingling. She reports that she has had some loose bowel movements for the past several days, approximately 2 per day, and she has had somewhat of a poor appetite. Otherwise, no fever or chills. All other systems reviewed and negative. PAST MEDICAL HISTORY: Prior CVA x2, both with right-sided deficits, status post rehab and recovery of her previous neurological losses per the patient and daughter. She also has history of hypertension. She also has chronic lower back pain, status post L4-L5 laminectomy several years ago with Dr. Narvaez and recent nerve stimulator placement about 6 weeks ago. PAST SURGICAL HISTORY: Bladder mesh placement, L4-L5 laminectomy as mentioned, and recent nerve stimulator placement, which is MRI compatible per the rep. She has had carpal tunnel surgery, hysterectomy, and bilateral sinus surgery. FAMILY HISTORY: Positive for coronary artery disease along with strokes. SOCIAL HISTORY: She lives in town with her . She sees most of her doctors at [facility] and [place]. She has no alcohol or smoking use. No history of illicit drug use. ALLERGIES: CODEINE, PENICILLINS, LACTOSE, TIZANIDINE, AND TRAMADOL. HOME MEDICATIONS: This list is currently not verified. 1. Aspirin 81 mg every other day. 2. Hydrochlorothiazide 25 mg daily. 3. Chlordiazepoxide/clidinium 5 mg/2.5 mg one tablet orally b.i.d. 4. Losartan 50 mg daily. 5. Protonix 40 mg daily. 6. Zoloft 50 mg daily. 7. Meclizine 12.5 mg t.i.d. p.r.n. 8. Gabapentin 100 mg t.i.d. PHYSICAL EXAMINATION: VITAL SIGNS: Blood pressure 128/63, pulse 60, respirations 16, O2 saturation 98 % on room air, and temperature 97.5. GENERAL: The patient is resting comfortably in no acute distress at the time of my interview. HEENT: Head is atraumatic and normocephalic. Mucous membranes are moist. NECK: Trachea is midline. No JVD. CV: S1 and S2. Regular rate and rhythm. No appreciable murmurs, rubs or gallops. LUNGS: Regular respiratory rate and pattern. Clear to auscultation bilaterally. ABDOMEN: Soft. Positive bowel sounds. Soft, mildly tender lower quadrant. EXTREMITIES: No edema. SKIN: Warm and dry. NEUROLOGIC: The patient has good lower extremity bilateral strengths. She cannot raise her right leg, but this is secondary to knee pain. She has +5/5 strength in her upper extremities. The patient is alert and oriented, answering questions appropriately. There is no sign of slurred speech or facial droop. LABORATORY DATA: White blood cell count 6.6, hemoglobin 14.0, hematocrit 40.5, and platelet count 209. Sodium 142, potassium 3.4, carbon dioxide 19, anion gap 17, creatinine 0.93, and calcium 10.3. AST 11, ALT 18, alk phos 57, and creatine kinase 38. Troponin is negative x3. TSH 1.5695. Prolactin 17.31. Urinalysis was negative for any sign of infection. ASSESSMENT: 1. Witnessed seizure-like activity, and altered mental status, now resolved. 2. Inconsistent neurological symptoms of unclear significance at this time, questionably postictal versus transient ischemic attack. CT of brain along with CTA negative, patient outside of tPA window at this time. 3. Prior cerebrovascular accident x2 - most recent one year ago, receiving tPA. 4. Urinary retention, Cole now in place. 5. History of L4-L5 laminectomy and persistent/chronic low back pain and radiculopathy, nerve stimulator recently placed that is MRI compatible. 6. Hypertension. PLAN: This patient has been evaluated with Dr. Candelario. We will proceed with EEG along with Neurology consult and very much appreciate their recommendations. We will perform an MRI of her brain as well. Her nerve stimulator is compatible with certain MRIs, and we will proceed with this tomorrow. Echocardiogram is also pending. We will obtain a fasting lipid panel in the morning. The patient has not been on a statin despite 2 previous strokes. She has also been taking her aspirin only every other day. We will start statin therapy as well as an aspirin 81 mg daily. Further recommendations based on findings of noninvasive testing and Neurology recommendations. PT/OT consults. Job ID: [id number] [facility]
[2018-10-16 08:06] LABS: #Eosinphils 0.2 thou/uL (0.0-0.7); #Lymphocytes 1.1 thou/uL (1.20-3.40); #Monocytes 0.3 thou/uL (0.11-0.59); #Neutrophils 2.7 thou/uL (1.40-6.50); %Basophils 0.6 % (0.0-1.0); %Eosinophils 3.8 % (0.0-10.0); %Lymphocytes 25.8 % (21.0-51.0); %Monocytes 7.2 % (0.0-10.0); %Neutrophils 62.6 % (42.0-75.0); Hemoglobin 12.4 g/dL (12.0-16.0); Mean Corpuscular Hemoglobin 31.1 pg (27.0-31.0); Mean Corpuscular Volume 94.4 fL (78.0-98.0); Mean Platelet Volume 7.1 fL (7.4-10.4); Platelet Count 191 thou/uL (130-400); RBC Distribution Width 12.3 % (11.5-14.5); White Blood Cell (WBC) Count 4.3 thou/uL (4.8-10.8)
[2018-10-16 08:22] LABS: ALT (SGPT) 18 U/L (8-55); AST (SGOT) 9 U/L (5-34); Albumin 3.9 g/dL (3.4-4.8); Alkaline Phosphatase 51 U/L (40-150); Anion Gap 13 mmol/L (10-20); BUN (Urea Nitrogen) 15 mg/dL (9.8-20.1); Bilirubin, Total 0.5 mg/dL (0.2-1.2); Calc. Creatinine Clearance 63 mL/min (70-130); Carbon Dioxide 24 mmol/L (23-31); Chloride 108 mmol/L (98-107); Estimated GFR-MDRD 67; Globulin 2.4 g/dL (2.4-3.5); Glucose 101 mg/dL (83-110); Potassium 3.6 mmol/L (3.5-5.1); Protein, Total 6.3 g/dL (6.0-8.3); Sodium 141 mmol/L (136-145)
[2018-10-16] MEDS: Aspirin 81 mg Enteric Coated Tablet PO SCH (09:39)
[2018-10-16] MEDS: Acetaminophen 500 MG TAB PO PRN (09:39)
--- NOTE | 2018-10-16 10:34 | CON ---
DATE OF CONSULTATION: 10/16/2018 CONSULTING PHYSICIAN: Hospitalist Service. IMPRESSION: 1. Probable syncopal seizure. 2. 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 3. Hypertension. 4. Embellished exam. PLAN: 1. EEG. 2. MRI of the brain. 3. Orthostatic blood pressure measurements. HISTORY OF PRESENT ILLNESS: Ms. Reagan is a 73-year-old female, who came in after having an episode at home where she lost consciousness. She had been up getting her a glass of water and was walking back into the den. Her legs started to feel weak and so she sat down in her chair. She told her daughter that she was feeling strangely. She continued to sit upright in the chair and began feeling shaky and her limbs started to twitch a bit. She was conscious and told her daughter that she could not control the twitching. As she was talking to her, she noted that she lost her vision, but was still conscious and communicating with her daughter. Daughter reports that she seem to quit talking, but was nodding her head to questions during this interval of time as the EMS was loading her up. It is not clear whether there was any continued twitching activity after she was on the stretcher. She reports that she has no memory of the trip to the hospital, which was relatively short. She awoke in the emergency room feeling generally weak. She had a CT of the brain done, which was unremarkable. She has a past history of 2 prior strokes with right hemiparesis that lasted from 2 weeks to 1 month in duration, requiring rehab. She got a tPA on 2 prior occasions. She recently had a spinal cord stimulator implanted about a month ago. Her daughter had made some adjustments in the stimulator prior to this event. PAST MEDICAL HISTORY: As listed above. ALLERGIES: NONE REPORTED. SOCIAL HISTORY: No tobacco or alcohol. FAMILY HISTORY: Noncontributory. MEDICATION LIST: Reviewed. Ten-system review of systems is otherwise negative. PHYSICAL EXAMINATION: GENERAL: She is a well-nourished elderly lady, lying in bed, in no acute distress. HEENT: Pupils are equal and reactive. Conjunctivae are clear. Pharynx clear. There is no tongue trauma present. NECK: Supple. No lymphadenopathy. EXTREMITIES: No cyanosis or edema. NEUROLOGIC: She was alert and cooperative. Her speech was fluent and clear. Her cranial nerve exam did not show any asymmetry. Motor exam showed symmetric movements albeit within an oddly embellished pattern of movement. She did not have any fix or drift. Sensation was subjectively equal to light touch. Gait was not tested. No abnormal movements were seen. IMAGING DATA: EKG shows sinus rhythm. SUMMARY: This 73-year-old woman with a prodromal feeling of weakness and shakiness prior to losing consciousness. She appears more consistent with a syncopal seizure than an epileptic event. She has had some prior episodes of partial weakness in her legs while standing. I suspect that she may have some orthostasis. I will see what we can document. I would not start her on anticonvulsants based on current history and exam. Job ID: [id number]
[2018-10-16] MEDS: Meclizine HCl 25 MG TAB PO SCH ×2 (11:40→22:08)
--- NOTE | 2018-10-16 13:45 | PDOC.HOSPP ---
- Subjective Encounter Date: 10/16/18 Encounter Time: 13:00 Subjective: Patient examined and denied new complaints. - Objective Vital Signs & Weight: Vital Signs (12 hours) Temp Pulse Pulse Pulse Pulse Pulse Resp 10/16/18 11:00 98.1 F 57 L 16 10/16/18 09:32 10/16/18 08:55 63 61 75 55 L 10/16/18 08:40 98.3 F 58 L 20 10/16/18 03:32 98 F 59 L 16 BP BP BP BP BP BP BP 10/16/18 11:00 132/64 10/16/18 09:32 168/81 H 167/94 H 10/16/18 08:55 150/74 H 168/81 H 167/94 H 148/78 H 10/16/18 08:40 145/79 H 10/16/18 03:32 BP Pulse Ox 10/16/18 11:00 93 L 10/16/18 09:32 150/74 H 10/16/18 08:55 10/16/18 08:40 93 L 10/16/18 03:32 106/54 L 95 Weight Admit Weight 67.222 kg Weight 67.222 kg I&O: 10/15/18 10/16/18 10/17/18 06:59 06:59 06:59 Intake Total 265 Output Total 1225 Balance -960 Result Diagrams: 10/17/18 04:14 10/17/18 04:14 ROS - Review of Systems Musculoskeletal: reports: back pain Neurological: reports: weakness, incoordination Other: "seizure-like" activity at home - Medication Medications: Active Medications Generic Name Dose Route Start Last Admin Trade Name Rhoda PRN Reason Stop Dose Admin Acetaminophen 1,000 mg 10/15/18 18:14 10/16/18 09:39 Tylenol PO 1,000 mg Q6H PRN Administration Mild Pain (1-3) Aspirin 81 mg 10/16/18 09:00 10/16/18 09:39 Ecotrin PO 81 mg DAILY MARLON Administration Meclizine HCl 12.5 mg 10/16/18 10:15 10/16/18 11:40 Antivert PO 12.5 mg ASDIR MARLON Administration - Exam awake alert General - other findings: chronically ill appearing Eye: PERRL ENT: moist mucosa Neck: supple, no JVD Heart: RRR Respiratory: CTAB Gastrointestinal: soft, non-tender Skin: normal turgor Neurological - other findings: right sided extremity weakness, chronic after CVA x2 Musculoskeletal: generalized weakness Musculoskeletal - other findings: right sided extremity weakness, chronic after CVA x2 Psychiatric: normal affect, A&O x 3, flat affect Hosp A/P (1) Physical deconditioning Code(s): R53.81 - OTHER MALAISE Status: Acute (2) Right leg weakness Code(s): R29.898 - [facility] SYMPTOMS AND SIGNS INVOLVING THE MUSCULOSKELETAL SYSTEM Status: Chronic (3) Spinal surgery in prior 3 months Code(s): Z98.890 - OTHER SPECIFIED POSTPROCEDURAL STATES Status: Chronic (4) Status post total right knee replacement Code(s): Z96.651 - PRESENCE OF RIGHT ARTIFICIAL KNEE JOINT Status: Chronic (5) Anxiety and depression Code(s): F41.9 - ANXIETY DISORDER, UNSPECIFIED; F32.9 - MAJOR DEPRESSIVE DISORDER, SINGLE EPISODE, UNSPECIFIED Status: Chronic (6) Benign hypertension Code(s): I10 - ESSENTIAL (PRIMARY) HYPERTENSION Status: Chronic (7) GERD (gastroesophageal reflux disease) Code(s): K21.9 - GASTRO-ESOPHAGEAL REFLUX DISEASE WITHOUT ESOPHAGITIS Status: Chronic Qualifiers: Esophagitis presence: without esophagitis Qualified Code(s): K21.9 - Gastro -esophageal reflux disease without esophagitis (8) Glaucoma Code(s): H40.9 - UNSPECIFIED GLAUCOMA Status: Chronic Qualifiers: Glaucoma type: unspecified Laterality: bilateral Qualified Code(s): H40.9 - Unspecified glaucoma (9) Shaking Code(s): R25.1 - TREMOR, UNSPECIFIED Status: Acute - Plan Neurology consult MRI brain if compatible with nerve stimulator - pending Echo- pending EEG- pending, PT/OT Will continue to monitor, recheck labs in AM
[2018-10-16] MEDS: Gabapentin 100 MG CAP PO SCH ×2 (15:03→22:11)
--- NOTE | 2018-10-16 16:10 | MRI ---
MRI brain noncontrast HISTORY: CVA. FINDINGS: There is no evidence of acute intracranial hemorrhage or infarct. Very mild chronic ischemi c small vessel disease within the periventricular white matter. There is no mass effect or shift of midline structures. Visualized paranasal sinuses remain well-aerated. IMPRESSION: No acute intracranial abnormalities are demonstrated.
[2018-10-16] MEDS ORDERED: chlordiazePOXIDE/Clidinium Bromide Capsule PO SCH (21:00)
[2018-10-16] MEDS ORDERED: Atorvastatin Calcium 20 MG TAB PO SCH (21:00)
[2018-10-16] MEDS ORDERED: Non-Formulary Item 1 EACH (Sertraline Hcl [Zoloft] 50 MG) PO SCH (21:00)
[2018-10-16] MEDS: chlordiazePOXIDE/Clidinium Bromide Capsule PO SCH (22:07)
[2018-10-16] MEDS: Atorvastatin Calcium 40 MG TAB PO SCH (22:11)
[2018-10-16] MEDS: Potassium Chloride 20 MEQ TAB PO SCH (22:12)
[2018-10-17 04:40] LABS: #Eosinphils 0.2 thou/uL (0.0-0.7); #Monocytes 0.3 thou/uL (0.11-0.59); #Neutrophils 3.1 thou/uL (1.40-6.50); %Basophils 0.3 % (0.0-1.0); %Eosinophils 3.4 % (0.0-10.0); %Lymphocytes 21.5 % (21.0-51.0); %Monocytes 5.9 % (0.0-10.0); %Neutrophils 68.9 % (42.0-75.0); Hemoglobin 12.9 g/dL (12.0-16.0); Mean Corpuscular HGB CONC 33.2 g/dL (32.0-36.0); Mean Corpuscular Hemoglobin 31.2 pg (27.0-31.0); Mean Corpuscular Volume 94.1 fL (78.0-98.0); Mean Platelet Volume 7.2 fL (7.4-10.4); Platelet Count 181 thou/uL (130-400); RBC Distribution Width 12.4 % (11.5-14.5); Red Blood Cell (RBC) Count 4.15 mill/uL (4.20-5.40); White Blood Cell (WBC) Count 4.5 thou/uL (4.8-10.8)
[2018-10-17] MEDS: Acetaminophen 500 MG TAB PO PRN ×2 (04:53→12:08)
[2018-10-17 05:04] LABS: ALT (SGPT) 17 U/L (8-55); AST (SGOT) 9 U/L (5-34); Albumin 3.9 g/dL (3.4-4.8); Alkaline Phosphatase 51 U/L (40-150); Anion Gap 12 mmol/L (10-20); BUN (Urea Nitrogen) 19 mg/dL (9.8-20.1); Bilirubin, Total 0.5 mg/dL (0.2-1.2); Calc. Creatinine Clearance 66 mL/min (70-130); Carbon Dioxide 24 mmol/L (23-31); Chloride 108 mmol/L (98-107); Estimated GFR-MDRD 71; Globulin 2.5 g/dL (2.4-3.5); Glucose 118 mg/dL (83-110); Potassium 3.7 mmol/L (3.5-5.1); Protein, Total 6.4 g/dL (6.0-8.3); Sodium 140 mmol/L (136-145)
[2018-10-17] MEDS: Aspirin 81 mg Enteric Coated Tablet PO SCH (08:31)
[2018-10-17] MEDS: Gabapentin 100 MG CAP PO SCH ×3 (08:32→21:02)
[2018-10-17] MEDS: chlordiazePOXIDE/Clidinium Bromide Capsule PO SCH ×2 (08:45→21:02)
[2018-10-17] MEDS: Potassium Chloride 20 MEQ TAB PO SCH ×2 (08:47→21:02)
[2018-10-17] MEDS: Meclizine HCl 25 MG TAB PO SCH ×2 (12:01→21:02)
[2018-10-17] MEDS: Losartan 25 MG TAB PO SCH (12:05)
[2018-10-17] MEDS: Hydrochlorothiazide 25 MG TAB PO SCH (12:07)
[2018-10-17] MEDS ORDERED: Lorazepam 2 MG/ML VIAL SLOW IVP PRN (12:36)
--- NOTE | 2018-10-17 12:55 | PRG ---
DATE OF TELEMEDICINE SERVICE WITH AMBER LORRAINE: 10/17/2018 CHIEF COMPLAINT: Syncopal event. HISTORY OF PRESENT ILLNESS: The patient's daughter and had many questions. I spent almost 45 minutes in her room today. The consultation was completed via telemedicine. The patient has been doing better with regard to headache. She still has poor strength in the right upper and lower extremities. She used to be independent, happy per daughter, and she had a back implant for back pain and the stimulator is working well. She reports having had 2 blackouts in the past. This was the first ever witnessed seizure. She went to get water for her , then came back and sat in the chair, complained that her legs were giving out and she had tingling in the legs, and she was noted to have weakness in the hands and feet, and eyes rolled back, her speech was low, she could not see. Per daughter, she kept saying "I cannot see you, where are you," and then she passed out by the time EMS arrived. She was out for 2-1/2 to 3 hours per daughter. Per the ER physician's note, she was not very responsive when she came into the ER on the , and apparently, her left pupil was larger and fixed at 7 cm. Prolactin level is normal. The patient had prior stroke. She had received tPA at [facility]. Those reports are not available to me and she had another stroke before that, at which time she did not receive tPA, but had some right-sided weakness. The patient has been tired since yesterday, and per daughter, she could not eat and she had some swallowing difficulties on evaluation. She also drained 825 mL of urine when catheter was inserted. PAST MEDICAL HISTORY: The patient's previous medical history significant for hypertension and 2 prior CVAs. PAST SURGICAL HISTORY: Vaginal mesh, bilateral sinus surgery, carpal tunnel surgery, hysterectomy. PSYCHIATRIC HISTORY: None. SOCIAL HISTORY: Lives with her , and daughter is also mostly there with her. ALLERGIES: SHE IS ALLERGIC TO CODEINE, LACTOSE, PENICILLINS, TIZANIDINE, AND TRAMADOL. PHYSICAL EXAMINATION: VITAL SIGNS: Temperature 98.3, pulse 62, respiratory rate 16, O2 saturations 93 %, blood pressure 149/86. She had mild orthostatic hypotension this morning, prior reading were all within normal limits. GENERAL APPEARANCE: Thin built, well-nourished lady, who appears to have a flat affect. Does not smile at all, and she is oriented to the year, but not to day or date. NEUROLOGIC: Cranial nerves, very mild right facial droop was noted. Normal extraocular movements. Sensory exam was normal for the face. Tongue midline. No atrophy noted. Normal elevation of palate. Normal hearing bilaterally to finger rub. Motor examination, strength 5/5 on the left side, and on the right side, she had weakness in the right arm and leg. Right arm weakness is approximately 3/5 and right leg 2/5. She is unclear whether this is due to decreased effort. Sensory exam was normal. LABORATORY DATA: Upon review, her lab workup; white count 4.5, hemoglobin 12.9, hematocrit 39, platelet count 181. Chemistry; sodium 140, potassium 3.7, chloride 108, bicarbonate 24, BUN 19, creatinine 0.79. Cholesterol and triglycerides are within normal limits. IMAGING STUDIES: 1. Her MRI of the brain did not show any acute stroke and she had chronic microvascular ischemic changes, which were mild. 2. Echocardiogram was also negative for any PFO. 3. Her CT angiogram did not show any significant stenosis of her bilateral ICAs as well as bilateral vertebrals and left common carotid arteries. IMPRESSION: The patient is a 73-year-old lady, who has had syncope elements in the past. Apparently, her primary care doctor put her on a heart monitor for 2-1/2 weeks per daughter and current monitoring is also with normal sinus rhythm. She had a witnessed seizure like event. No orthostatic hypotension as noted. I am not sure of whether the etiology of the right arm and leg weakness is due to a TELEVISION [employer]ATION [employer] event because there is no acute stroke on MRI. She might have had a seizure or this could be more of a syncope event with seizure like activity. Prolactin being normal. There is a suspicion for syncope rather than a seizure. RECOMMENDATIONS: 1. Obtain MRI of the C-spine to rule out any compressive lesion, which can be causing her to have right arm and leg weakness. 2. She has a flat affect, but denies any depression. She might have psychogenic component to her weakness. 3. For now, continue anti-platelet agents and statin. I will follow up with you again tomorrow. Job ID: [id number] [facility]
--- NOTE | 2018-10-17 14:15 | PRG ---
DATE OF SERVICE: 10/17/2018 SUBJECTIVE: The patient is seen and examined at bedside today. Unfortunately, patient was in deep sleep. She was not able to be examined, family members were present. I answered them all questions. I have reviewed her medical chart. At this point, the patient is hemodynamically stable. Neurology has seen earlier today and they are recommending MRI cervical spine and I agree with that. Echocardiography is unremarkable. Other investigations are negative so far. The patient's cardiac and lung examination is normal. Neuro examination not possible because of sleepiness. Plan of care discussed with the family member at bedside. Job ID: [id number]
--- NOTE | 2018-10-17 16:25 | PDOC.HOSPP ---
- Subjective Encounter Date: 10/17/18 Encounter Time: 09:30 Subjective: Patient examined, have been in the patient's room multiple times today. - Objective Vital Signs & Weight: Vital Signs (12 hours) Temp Pulse Pulse Pulse Resp BP BP 10/17/18 15:51 90/59 L 10/17/18 15:32 97.9 F 62 20 10/17/18 12:34 89 198/107 H 10/17/18 12:23 97.5 F L 89 30 H 10/17/18 11:00 98.3 F 62 16 10/17/18 09:13 62 89 144/76 H 10/17/18 07:50 98.5 F 69 16 BP BP Pulse Ox 10/17/18 15:51 10/17/18 15:32 94 L 10/17/18 12:34 10/17/18 12:23 198/107 H 100 10/17/18 11:00 149/86 H 93 L 10/17/18 09:13 132/82 10/17/18 07:50 115/61 92 L Weight Admit Weight 67.222 kg Weight 67.222 kg I&O: 10/16/18 10/17/18 10/18/18 06:59 06:59 06:59 Intake Total 265 740 Output Total 1225 1125 Balance -960 -385 Result Diagrams: 10/17/18 04:14 10/17/18 04:14 ROS - Review of Systems ENT: reports: other (Reports neck pain and difficulty swallowing) Musculoskeletal: reports: arm pain (Right arm and leg weakness -) Neurological: reports: weakness Other: tremors - Medication Medications: Active Medications Generic Name Dose Route Start Last Admin Trade Name Freq PRN Reason Stop Dose Admin Acetaminophen 1,000 mg 10/15/18 18:14 10/17/18 12:08 Tylenol PO 1,000 mg Q6H PRN Administration Mild Pain (1-3) Aspirin 81 mg 10/16/18 09:00 10/17/18 08:31 Ecotrin PO 81 mg DAILY MARLON Administration Atorvastatin Calcium 40 mg 10/16/18 21:00 10/16/18 22:11 Lipitor PO 40 mg HS MARLON Administration Chlordiazepoxide/Clidinium 1 cap 10/16/18 21:00 10/17/18 08:45 Librax PO 1 cap BID MARLON Administration Gabapentin 100 mg 10/16/18 15:00 10/17/18 15:51 Neurontin PO 100 mg TID MARLON Administration Hydrochlorothiazide 25 mg 10/17/18 09:00 10/17/18 12:07 Hydrochlorothiazide PO 25 mg DAILY MARLON Administration Labetalol HCl 20 mg 10/15/18 18:14 10/17/18 12:34 Normodyne SLOW IVP 4 ml Q4H PRN Administration SBP > 180 and HR >/= 70 Lorazepam 0.5 mg 10/17/18 12:36 10/17/18 12:50 Ativan SLOW IVP 0.5 mg Q6H PRN Administration Anxiety/Agitation Losartan Potassium 50 mg 10/17/18 09:00 10/17/18 12:05 Cozaar PO 50 mg DAILY MARLON Administration Meclizine HCl 12.5 mg 10/16/18 10:15 10/17/18 12:01 Antivert PO 12.5 mg ASDIR MARLON Administration Meclizine HCl 25 mg 10/16/18 21:00 10/16/18 22:08 Antivert PO 25 mg HS MARLON Administration Memantine 5 mg 10/16/18 21:00 10/17/18 08:34 Namenda PO 5 mg BID MARLON Administration Ondansetron HCl 4 mg 10/15/18 18:14 10/17/18 10:56 Zofran IVP 4 mg Q6H PRN Administration Nausea/Vomiting Pantoprazole Sodium 40 mg 10/16/18 21:00 10/17/18 08:46 Protonix PO 40 mg BID MARLON Administration Potassium Chloride 20 meq 10/16/18 21:00 10/17/18 08:47 K-Dur PO 20 meq BID MARLON Administration Sertraline HCl 50 mg 10/16/18 21:00 10/16/18 22:09 Zoloft PO 50 mg HS MARLON Administration Sodium Chloride 10 ml 10/15/18 17:32 10/16/18 22:12 Flush - Normal Saline IVF 10 ml PRN PRN Administration Saline Flush - Exam NAD Eye: anicteric sclera ENT: moist mucosa Neck: supple, no lymphadenopathy Heart: RRR, normal peripheral pulses Respiratory: CTAB Gastrointestinal: soft, non-tender Extremities: no cyanosis Skin: normal turgor Neurological: CN's grossly intact Neurological - other findings: right extremity weakness Musculoskeletal - other findings: strength 3/5 on right arm, leg 2/5 Psychiatric: flat affect Hosp A/P (1) Physical deconditioning Code(s): R53.81 - OTHER MALAISE Status: Acute (2) Right leg weakness Code(s): R29.898 - [facility] SYMPTOMS AND SIGNS INVOLVING THE MUSCULOSKELETAL SYSTEM Status: Chronic (3) Spinal surgery in prior 3 months Code(s): Z98.890 - OTHER SPECIFIED POSTPROCEDURAL STATES Status: Chronic (4) Status post total right knee replacement Code(s): Z96.651 - PRESENCE OF RIGHT ARTIFICIAL KNEE JOINT Status: Chronic (5) Anxiety and depression Code(s): F41.9 - ANXIETY DISORDER, UNSPECIFIED; F32.9 - MAJOR DEPRESSIVE DISORDER, SINGLE EPISODE, UNSPECIFIED Status: Chronic (6) Benign hypertension Code(s): I10 - ESSENTIAL (PRIMARY) HYPERTENSION Status: Chronic (7) GERD (gastroesophageal reflux disease) Code(s): K21.9 - GASTRO-ESOPHAGEAL REFLUX DISEASE WITHOUT ESOPHAGITIS Status: Chronic Qualifiers: Esophagitis presence: without esophagitis Qualified Code(s): K21.9 - Gastro -esophageal reflux disease without esophagitis (8) Glaucoma Code(s): H40.9 - UNSPECIFIED GLAUCOMA Status: Chronic Qualifiers: Glaucoma type: unspecified Laterality: bilateral Qualified Code(s): H40.9 - Unspecified glaucoma (9) Shaking Code(s): R25.1 - TREMOR, UNSPECIFIED Status: Acute - Plan Neurology consult - Dr. Hendrix today MRI brain negative, MRI cervical spine per Dr. Hendrix Echo with EF 50-55% EEG- pending, PT/OT - recommend rehab screening Will continue to monitor, recheck labs in AM 1215- Nurses describe an anxiety type reaction this afternoon when son came into the room, report BP elevated and she was unable to speak or answers questions. Family report patient stated "she was ready". Requested for Dr. Levi to also see patient today.
[2018-10-17] MEDS ORDERED: Sodium Chloride 0.9% 1,000 ML IV SCH (16:45)
[2018-10-17] MEDS: Atorvastatin Calcium 40 MG TAB PO SCH (21:02)
[2018-10-18] MEDS: Hydrochlorothiazide 25 MG TAB PO SCH ×2 (08:52→14:53)
[2018-10-18] MEDS: Aspirin 81 mg Enteric Coated Tablet PO SCH (08:52)
[2018-10-18] MEDS: chlordiazePOXIDE/Clidinium Bromide Capsule PO SCH ×2 (08:52→20:59)
[2018-10-18] MEDS: Gabapentin 100 MG CAP PO SCH ×3 (08:53→21:01)
[2018-10-18] MEDS: Potassium Chloride 20 MEQ TAB PO SCH ×2 (08:53→21:00)
[2018-10-18] MEDS: Losartan 25 MG TAB PO SCH ×2 (08:53→14:53)
[2018-10-18] MEDS: Acetaminophen 500 MG TAB PO PRN (09:03)
[2018-10-18] MEDS: Meclizine HCl 25 MG TAB PO SCH ×2 (09:03→21:00)
[2018-10-18] MEDS ORDERED: Iopamidol 370 76% 100 ML VIAL ONE (10:26)
--- NOTE | 2018-10-18 12:55 | PRG ---
DATE OF SERVICE: 10/18/2018 This is a followup note via telemedicine with nurse, Claudia. CHIEF COMPLAINT: Right-sided weakness. INTERVAL HISTORY: Per chart and nurses, the patient had an event when her son was visiting her yesterday. Her friend was in the room today and she reports for the last 3 years she has gone downhill. She used to run and walk with her, but then she developed knee pain, back pain, dizzy spells over the last 2 to 3 years in association with blackouts and her first dizzy spell was in 2013 and she used to blackout at that time as well. She was walking without a cane prior to arrival to the hospital. LABORATORY WORKUP: Current workup; no new labs today and no additional reports either. IMAGING STUDIES: She is still pending MRI of the neck. PHYSICAL EXAMINATION: VITAL SIGNS: Temperature 98.6, pulse 65, respiratory rate 16, and blood pressure 110/66. GENERAL APPEARANCE: The patient lies in bed with no expression of her face and does not smile when asked to do so even and not oriented to time, but oriented to place, knows this is 2018, but not the month, or the date or the day. NEUROLOGIC: Cranial nerves, right facial asymmetry. Normal extraocular movements. Tongue midline. Motor examination; decreased tone on the right side, decreased effort while examining on the left lower limb, and strength on the right side was 3/5 overall, left upper extremity strength 5/5, but left lower extremity strength was also 5/5. IMPRESSION: The patient is a 73-year-old lady, who is having syncopal events and she is also having seizure like activity. I am not sure where her weakness is coming from. We will certainly obtain MRI of the neck to see if she has any degenerative disease contributing to right hemiparalysis. We could not detect on examinee's psychogenic weakness. She has good effort on the left side and has decreased tone on the right side. She might have some underlying stressors, which are not being expressed. It is quite odd that the patient does not even smile throughout the visit. She may have underlying psychiatric issues as well due to chronic pain that needs to be addressed. RECOMMENDATIONS: 1. Please obtain the MRI of the neck. If abnormal, please call Dr. Corbett. 2. Start her on physical therapy to improve her strength. 3. I started her on Keppra to prevent any future events, hopefully that should take care of her seizure like events. 4. Daughter was not in the room. Please convey all this information to her. 5. If needed, please ask Dr. Corbett to re-consult on this patient tomorrow. Job ID: [id number]
[2018-10-18] MEDS ORDERED: Sodium Chloride 0.9% 1,000 ML IV SCH (15:15)
--- NOTE | 2018-10-18 16:35 | PDOC.HOSPP ---
- Subjective Encounter Date: 10/18/18 Encounter Time: 12:30 Subjective: Patient examined, is sleepy but will open eyes. Family reports she was more alert this AM, brushed her teeth and able to carry on a conversation. Reports she became really sleepy after Keppra. - Objective Vital Signs & Weight: Vital Signs (12 hours) Temp Pulse Resp BP Pulse Ox 10/18/18 15:39 98.8 F 68 15 105/63 92 L 10/18/18 11:49 98.2 F 69 16 109/59 L 93 L 10/18/18 07:59 98.6 F 65 16 110/66 92 L Weight Admit Weight 67.222 kg Weight 67.222 kg I&O: 10/17/18 10/18/18 10/19/18 06:59 06:59 06:59 Intake Total 740 520 240 Output Total 1125 1550 650 Balance -385 -1030 -410 Result Diagrams: 10/17/18 04:14 10/17/18 04:14 ROS - Review of Systems ENT: reports: other (clenching her jaws) Neurological: reports: weakness, seizures - Medication Medications: Active Medications Generic Name Dose Route Start Last Admin Trade Name Freq PRN Reason Stop Dose Admin Acetaminophen 1,000 mg 10/15/18 18:14 10/18/18 09:03 Tylenol PO 1,000 mg Q6H PRN Administration Mild Pain (1-3) Aspirin 81 mg 10/16/18 09:00 10/18/18 08:52 Ecotrin PO 81 mg DAILY MARLON Administration Atorvastatin Calcium 40 mg 10/16/18 21:00 10/17/18 21:02 Lipitor PO 40 mg HS MARLON Administration Chlordiazepoxide/Clidinium 1 cap 10/16/18 21:00 10/18/18 08:52 Librax PO 1 cap BID MARLON Administration Gabapentin 100 mg 10/16/18 15:00 10/18/18 14:47 Neurontin PO Not Given TID MARLON Hydrochlorothiazide 25 mg 10/17/18 09:00 10/18/18 14:53 Hydrochlorothiazide PO Not Given DAILY MARLON Sodium Chloride 1,000 mls @ 50 mls/hr 10/18/18 15:15 10/18/18 15:23 Normal Saline 0.9% IV 10/19/18 11:14 1,000 mls .Q20H MARLON Administration Labetalol HCl 20 mg 10/15/18 18:14 10/17/18 12:34 Normodyne SLOW IVP 4 ml Q4H PRN Administration SBP > 180 and HR >/= 70 Lorazepam 0.5 mg 10/17/18 12:36 10/17/18 12:50 Ativan SLOW IVP 0.5 mg Q6H PRN Administration Anxiety/Agitation Losartan Potassium 50 mg 10/17/18 09:00 10/18/18 14:53 Cozaar PO Not Given DAILY MARLON Meclizine HCl 12.5 mg 10/16/18 10:15 10/18/18 09:03 Antivert PO 12.5 mg ASDIR MARLON Administration Meclizine HCl 25 mg 10/16/18 21:00 10/17/18 21:02 Antivert PO 25 mg HS MARLON Administration Memantine 5 mg 10/16/18 21:00 10/18/18 08:53 Namenda PO 5 mg BID MARLON Administration Ondansetron HCl 4 mg 10/15/18 18:14 10/17/18 10:56 Zofran IVP 4 mg Q6H PRN Administration Nausea/Vomiting Pantoprazole Sodium 40 mg 10/16/18 21:00 10/18/18 08:53 Protonix PO 40 mg BID MARLON Administration Potassium Chloride 20 meq 10/16/18 21:00 10/18/18 08:53 K-Dur PO 20 meq BID MARLON Administration Sertraline HCl 50 mg 10/16/18 21:00 10/17/18 21:02 Zoloft PO 50 mg HS MARLON Administration Sodium Chloride 10 ml 10/15/18 17:32 10/16/18 22:12 Flush - Normal Saline IVF 10 ml PRN PRN Administration Saline Flush - Exam ill appearing Eye: anicteric sclera ENT: moist mucosa Neck: supple, no JVD Heart: RRR Respiratory: CTAB Gastrointestinal: soft, non-tender Extremities: no cyanosis Skin: normal turgor Neurological: normal sensation to touch Neurological - other findings: right sided extremity weakness Musculoskeletal - other findings: right sided weakness Psychiatric: not oriented, flat affect, somnolent Hosp A/P (1) Physical deconditioning Code(s): R53.81 - OTHER MALAISE Status: Acute (2) Right leg weakness Code(s): R29.898 - [facility] SYMPTOMS AND SIGNS INVOLVING THE MUSCULOSKELETAL SYSTEM Status: Chronic (3) Spinal surgery in prior 3 months Code(s): Z98.890 - OTHER SPECIFIED POSTPROCEDURAL STATES Status: Chronic (4) Status post total right knee replacement Code(s): Z96.651 - PRESENCE OF RIGHT ARTIFICIAL KNEE JOINT Status: Chronic (5) Anxiety and depression Code(s): F41.9 - ANXIETY DISORDER, UNSPECIFIED; F32.9 - MAJOR DEPRESSIVE DISORDER, SINGLE EPISODE, UNSPECIFIED Status: Chronic (6) Benign hypertension Code(s): I10 - ESSENTIAL (PRIMARY) HYPERTENSION Status: Chronic (7) GERD (gastroesophageal reflux disease) Code(s): K21.9 - GASTRO-ESOPHAGEAL REFLUX DISEASE WITHOUT ESOPHAGITIS Status: Chronic Qualifiers: Esophagitis presence: without esophagitis Qualified Code(s): K21.9 - Gastro -esophageal reflux disease without esophagitis (8) Glaucoma Code(s): H40.9 - UNSPECIFIED GLAUCOMA Status: Chronic Qualifiers: Glaucoma type: unspecified Laterality: bilateral Qualified Code(s): H40.9 - Unspecified glaucoma (9) Shaking Code(s): R25.1 - TREMOR, UNSPECIFIED Status: Acute - Plan Neurology consult - Dr. Hendrix today MRI brain negative, MRI cervical spine per Dr. Hendrix CT cervical spine if not able to have MRI due to nerve stimulator Keppra added today after episode yesterday Echo with EF 50-55% EEG- pending, PT/OT - recommend rehab screening Will continue to monitor, recheck labs in AM Requested for Dr. Carolina to also see patient today.
--- NOTE | 2018-10-18 16:52 | CT ---
CT neck soft tissues with contrast: DATE: 10/18/2018 HISTORY: 73-year-old female with pain, stiffness, and swelling. FINDINGS: No major pathology identified involving parapharyngeal, retropharyngeal, pharyngeal mucosal, submandi bular, sublingual, parotid, behavioral sciences instructor, perivertebral, and posterior cervical, spaces. Calcified atherosclerotic plaque at bilateral proximal internal carotid arteries. No cervical lymphadenopathy, abscess, cystic lesion, solid lesion, or significant soft tissue edema. Mild to moderate degenerative disc disease at C3-4, C4-5, and C5-6, where there are moderate-sized uncinate process os teophytes encroaching upon bilateral neural foramina, causing neural foraminal stenosis, which is moderate to severe bilaterally at C4-5, mild to moderate on the right and severe on the left at C5-6, and mild on the right and severe on the left at C6-7. No high-grade central spinal canal stenosis at any level. No high-grade facet DJD at any level. No fracture or major subluxation of the cervical spine. No obvious mass at larynx. No thyromegaly. Trachea patent and clear. Nonspecific interstitial densities at lung apices. IMPRESSION: 1. Bilateral neural foraminal stenosis at several levels with overall mild-moderate cervical spondylo sis. 2. Atherosclerosis of proximal internal carotid arteries. 3. Otherwise negative.
--- NOTE | 2018-10-18 17:57 | CT ---
CT ABDOMEN AND PELVIS WITH IV CONTRAST: Date: 10/18/18 HISTORY: Epigastric pain. Patient has bladder mesh. FINDINGS: There are no previous exams for comparison. There are dependent changes in the lung bases. The liver, spleen, pancreas, adrenal glands, and kidne ys are normal. No free air, free fluid, or lymphadenopathy is seen. There are vascular calcifications without evidence of aneurysmal dilatation of the abdominal aorta. The small bowel loops are not abno rmally dilated. There is fecal material in the colon. A Cole catheter is present in the urinary blad lea with a small amount of free air. There are postop changes in the lumbar spine. A neurostimulator device is seen in the left posterior lower back with intraspinal leads entering at L1 level. The patient is post cholecystectomy and hyste rectomy. IMPRESSION: No acute process. POS: HAILE
--- NOTE | 2018-10-18 20:39 | PDOC.EVN ---
Event Note - Event Note Event Note: pt seen an examined. will order ct abd/pel since she is having some abd pain. plan discussed with family. ammonia level is nomal. Possible conversion disorder ?
[2018-10-18] MEDS: Atorvastatin Calcium 40 MG TAB PO SCH (21:01)
[2018-10-19] MEDS: Losartan 25 MG TAB PO SCH (09:36)
[2018-10-19] MEDS: Hydrochlorothiazide 25 MG TAB PO SCH (09:36)
[2018-10-19] MEDS: Aspirin 81 mg Enteric Coated Tablet PO SCH (09:36)
[2018-10-19] MEDS: Gabapentin 100 MG CAP PO SCH ×2 (09:36→16:12)
[2018-10-19] MEDS: Potassium Chloride 20 MEQ TAB PO SCH (09:36)
[2018-10-19] MEDS: chlordiazePOXIDE/Clidinium Bromide Capsule PO SCH (09:37)
[2018-10-19] MEDS: Acetaminophen 500 MG TAB PO PRN (09:56)
--- NOTE | 2018-10-19 13:41 | PDOC.HOSPP ---
- Subjective Subjective: Seen and examined with family at bedside. Flat affect. Patient does not participate with physical examination and exhibits low effort with motor strength. Seems clinically depressed. Patient medically stable for lower level of care. - Objective Vital Signs & Weight: Vital Signs (12 hours) Temp Pulse Pulse Pulse Resp BP BP 10/19/18 11:33 98.3 F 74 16 10/19/18 08:55 72 75 153/82 H 163/89 H 10/19/18 08:30 10/19/18 07:38 98.4 F 70 15 10/19/18 03:48 98.7 F 69 16 BP Pulse Ox 10/19/18 11:33 132/61 95 10/19/18 08:55 10/19/18 08:30 93 L 10/19/18 07:38 113/64 93 L 10/19/18 03:48 109/64 91 L Weight Admit Weight 148 lb 3.2 oz Weight 154 lb I&O: 10/18/18 10/19/18 10/20/18 06:59 06:59 06:59 Intake Total 520 240 650 Output Total 1550 1325 Balance -1030 -1085 650 Result Diagrams: 10/17/18 04:14 10/17/18 04:14 Radiology Reviewed by me: Yes (CT abdomen/ pelvis, CT neck) ROS - Medication Medications: Active Medications Generic Name Dose Route Start Last Admin Trade Name Freq PRN Reason Stop Dose Admin Acetaminophen 1,000 mg 10/15/18 18:14 10/19/18 09:56 Tylenol PO 1,000 mg Q6H PRN Administration Mild Pain (1-3) Aspirin 81 mg 10/16/18 09:00 10/19/18 09:36 Ecotrin PO 81 mg DAILY MARLON Administration Atorvastatin Calcium 40 mg 10/16/18 21:00 10/18/18 21:01 Lipitor PO 40 mg HS MARLON Administration Chlordiazepoxide/Clidinium 1 cap 10/16/18 21:00 10/19/18 09:37 Librax PO 1 cap BID MARLON Administration Gabapentin 100 mg 10/16/18 15:00 10/19/18 09:36 Neurontin PO 100 mg TID MARLON Administration Hydrochlorothiazide 25 mg 10/17/18 09:00 10/19/18 09:36 Hydrochlorothiazide PO 25 mg DAILY MARLON Administration Levetiracetam 500 mg/ Device 100 mls @ 200 mls/hr 10/18/18 21:00 10/19/18 09: 33 IVPB 100 mls BID MARLON Administration Labetalol HCl 20 mg 10/15/18 18:14 10/17/18 12:34 Normodyne SLOW IVP 4 ml Q4H PRN Administration SBP > 180 and HR >/= 70 Lorazepam 0.5 mg 10/17/18 12:36 10/17/18 12:50 Ativan SLOW IVP 0.5 mg Q6H PRN Administration Anxiety/Agitation Losartan Potassium 50 mg 10/17/18 09:00 10/19/18 09:36 Cozaar PO 50 mg DAILY MARLON Administration Meclizine HCl 12.5 mg 10/16/18 10:15 10/18/18 09:03 Antivert PO 12.5 mg ASDIR MARLON Administration Meclizine HCl 25 mg 10/16/18 21:00 10/18/18 21:00 Antivert PO 25 mg HS MARLON Administration Memantine 5 mg 10/16/18 21:00 10/19/18 09:36 Namenda PO 5 mg BID MARLON Administration Ondansetron HCl 4 mg 10/15/18 18:14 10/17/18 10:56 Zofran IVP 4 mg Q6H PRN Administration Nausea/Vomiting Pantoprazole Sodium 40 mg 10/16/18 21:00 10/19/18 09:36 Protonix PO 40 mg BID MARLON Administration Potassium Chloride 20 meq 10/16/18 21:00 10/19/18 09:36 K-Dur PO 20 meq BID MARLON Administration Sertraline HCl 50 mg 10/16/18 21:00 10/18/18 20:59 Zoloft PO 50 mg HS MARLON Administration Sodium Chloride 10 ml 10/15/18 17:32 10/18/18 21:01 Flush - Normal Saline IVF 10 ml PRN PRN Administration Saline Flush - Exam NAD, awake alert Eye: PERRL, anicteric sclera ENT: moist mucosa Neck: supple Heart - other findings: S1 and S2 present, no murmur appreciated Respiratory: CTAB, no wheezes, no rales, no ronchi Gastrointestinal: soft, non-tender, non-distended, normal bowel sounds, no guarding, no rigidity Extremities: no edema Neurological: CN's grossly intact, no focal deficits, no new deficit Neurological - other findings: Does not participate well with physical exam, low effort Musculoskeletal: no muscle wasting, generalized weakness Psychiatric: A&O x 3, flat affect Hosp A/P (1) Shaking Code(s): R25.1 - TREMOR, UNSPECIFIED Status: Chronic (2) Physical deconditioning Code(s): R53.81 - OTHER MALAISE Status: Chronic (3) Anxiety and depression Code(s): F41.9 - ANXIETY DISORDER, UNSPECIFIED; F32.9 - MAJOR DEPRESSIVE DISORDER, SINGLE EPISODE, UNSPECIFIED Status: Chronic (4) GERD (gastroesophageal reflux disease) Code(s): K21.9 - GASTRO-ESOPHAGEAL REFLUX DISEASE WITHOUT ESOPHAGITIS Status: Chronic Qualifiers: Esophagitis presence: without esophagitis Qualified Code(s): K21.9 - Gastro -esophageal reflux disease without esophagitis (5) HTN (hypertension) Code(s): I10 - ESSENTIAL (PRIMARY) HYPERTENSION Status: Chronic Qualifiers: Hypertension type: essential hypertension Qualified Code(s): I10 - Essential (primary) hypertension (6) Right leg weakness Code(s): R29.898 - [facility] SYMPTOMS AND SIGNS INVOLVING THE MUSCULOSKELETAL SYSTEM Status: Chronic (7) Spinal surgery in prior 3 months Code(s): Z98.890 - OTHER SPECIFIED POSTPROCEDURAL STATES Status: Chronic (8) Status post total right knee replacement Code(s): Z96.651 - PRESENCE OF RIGHT ARTIFICIAL KNEE JOINT Status: Chronic - Plan Plan: D/c planning, Patient is stable for lower level of care at this time CM consult - SNF vs rehab PT/OT consultation, recommendations appreciated Neurology consultation, recommendations appreciated CT neck with mild-mod disease that may help explain right sided arm weakness MRI C-spine ordered - however radiology states that nerve stimulator is not compatible, unable to preform AED started by neurology abdominal pain - CT abdomen negative Continue home medications as able GI and DVT PPX
[2018-10-19 15:45] VITALS: BP 147/83; TEMP 97.8
--- NOTE | 2018-10-20 09:26 | EEG ---
Referring Physician: Chris AKHTAR EEG # [id number] TEST TYPE: ROUTINE PORTABLE INPATIENT REPORT: AN EEG USING THE INTERNATIONAL TEN-TWENTY SYSTEM OF ELECTRODE PLACEMENT WAS PERFORMED. The waking background is a 10 hertz alpha frequency. The patient remained awake throughout the study. Photic stimulation was unremarkable. No epileptiform features were present. IMPRESSION: THIS IS A NORMAL AWAKE EEG. Trade Facilitator: PERF[employer]O Equipment Planner: [email or web address] DOWLING
--- NOTE | 2018-10-20 11:30 | DIS ---
DATE OF ADMISSION: 10/15/2018 DATE OF DISCHARGE: 10/19/2018 REASON FOR HOSPITALIZATION: Seizure-type activity. SIGNIFICANT FINDINGS: The patient had a thorough neurologic workup and treatment by Neurology, please see full consultation and progress notes for details. PROCEDURES PERFORMED AND TREATMENTS RENDERED: The patient had an MRI of the brain that did not have any acute intracranial abnormalities. The patient was started on antiepileptic drugs by Neurology with resolution of symptoms. CONDITION ON DISCHARGE: Stable. SPECIFIC INSTRUCTIONS FOR THE PATIENT/FAMILY: 1. The patient is to follow up at acute rehab for continuation of physical therapy and occupational therapy. 2. All of patient's medications are to be re-evaluated and adjusted appropriately by admitting physician at acute rehabilitation facility. 3. The patient is to follow up with Neurology in the outpatient setting in the next 1 to 2 weeks. 4. The patient after being discharged from rehabilitation facility is to follow up with primary care physician, within 5 to 7 days after discharge. 5. The patient explicitly informed that if signs or symptoms return, worsen, or any other new symptoms occur, she is to return to acute care hospital immediately for re-evaluation. HISTORY OF PRESENT ILLNESS: Ms. Reagan is a 73-year-old female who presented to [facility] on 10/15/2018, with seizure-type activity. The patient with past medical history of CVAs x2, L4 laminectomy several years ago, nerve stimulator, chronic pain, hypertension, bladder mesh, GERD, depression, neuropathic pain, and chronic vertigo. The patient with seizure-type activity and extensive workup, physical, and radiographic imaging was conducted by Neurology-please see full consultation and progress notes by Neurology for details. The patient had EEG by Neurology, although Neurology initially stating that abnormal movements were likely nonepileptic spells. The patient was started on antiepileptic drugs. Neurology recommending continuation of antiepileptic drugs until seen in the outpatient setting. Neurology also recommending that the patient does seen clinically depressed, and due to the severity of her chronic illnesses, depression is likely a contributing factor to the patient's overall neurologic symptoms and neurologic presentation. Neurology recommending that the patient was safe for discharge on 10/19/2018-with the explicit instruction that there will be outpatient followup in the clinic in the next 1 to 2 weeks. The patient did have an EEG study-please see full report for details-EEG was reported as normal without acute spike in wave morphology. The patient's CBC was normal throughout her hospitalization without acute abnormalities. The patient had serial complete metabolic panels that were also normal and there was no metabolic process ongoing acutely while she was hospitalized. The patient with urinalysis performed that does not demonstrate any acute infection. The patient recommended safe for discharge. The patient was evaluated by Physical Therapy who recommended subacute placement either rehabilitation facility or long term facility. Efforts were made with Case Management to find an accepting facility of the patient's choosing. The patient was accepted to rehabilitation facility on 10/19/2018. The patient recommended safe for transport with ambulance. The patient was recommended to continue all current medications, to be re-evaluated and adjusted as needed by admitting physician at subacute facility. The patient is recommended a followup with Neurology in the next 1 to 2 weeks-or return to acute care hospital immediately if unable to be seen. The patient is recommended to return to acute care hospital immediately if signs or symptoms return, worsen, or any other new symptoms occur. Greater than 35 minutes spent coordinating and planning discharge process. Job ID: [id number]
--- NOTE | 2018-10-22 11:48 | PQF ---
[employer] TERESA Lee NELYLINDA [id number] [address] [place] [address] [id number] CLINICAL DOCUMENTATION CLARIFICATION FORM: POST DISCHARGE Addendum to original discharge summary date: ____ Late entry note date: __ DATE: 10/22/2018 ATTN: LINDA MCKAY Please exercise your independent, professional judgment in responding to the clarification form. Clinical indicators are provided on the bottom of this form for your review Please check appropriate box(s): Mood Disorder Type (check appropriate):Status:Severity: [ ] Manic[ ] Single past episode[ ] Mild [ ] Bipolar[ ] Current episode[ ] Moderate [ ] Manic[ ] In remission[ ] Severe [ ] Depressive[ ] Partial [ ] Mixed[ ] Full [ XX ] Major Depressive Disorder[ ] With Psychosis [ ] Persistent Mood Disorder[ ] Without Psychosis [ ] Other diagnosis [ ] Unable to determine For continuity of documentation, please document condition throughout progress notes and discharge summary. Thank You. CLINICAL INDICATORS - SIGNS / SYMPTOMS / LABS - clinically depressed and due to the severity of her chronic illness- DS, 10/19 , LINDA MCKAY - Depression is likely a contributing factor to the pateint's over all neurological symptoms-DS, 10/19, ROBIN MCKAYIK - she was not following commands, atlking, but alerted- H&P, 10/15-Claudia Marrero PA-C - Some confusion-H&P, 10/15-Claudia Marrero PA-C RISK FACTORS -Seizure type activity-DS, 10/19NELY LINDA -2 prior CVA, the most recent on e year ago-H&P, 10/15, 10/15-Claudia Lorenzana -PMH-Previous neurological losses-H&P, 10/15-Claudia Marrero PA-C TREATMENT: Zoloft-MAY, 10/15 MTDD
== END 2018-10-19 20:40 | DRG 885 ==
LOC: ERS 13:03 → OBSVTOIN 15:40 → 2SE 15:40
PROVIDERS: ADMIT Internal Medicine; ATTEND Internal Medicine
DX: F32.3 Major depressive disorder, single episode, severe with psychotic features (principal); I10 Essential (primary) hypertension; Z96.651 Presence of right artificial knee joint; F41.9 Anxiety disorder, unspecified; K21.9 Gastro-esophageal reflux disease without esophagitis; G89.29 Other chronic pain; R25.1 Tremor, unspecified; H40.9 Unspecified glaucoma; R53.81 Other malaise; R42 Dizziness and giddiness; R33.9 Retention of urine, unspecified; Z90.710 Acquired absence of both cervix and uterus; Z86.73 Personal history of transient ischemic attack (TIA), and cerebral infarction without residual deficits; Z98.890 Other specified postprocedural states; Z88.6 Allergy status to analgesic agent; Z88.0 Allergy status to penicillin; Z88.8 Allergy status to other drugs, medicaments and biological substances
CPT/HCPCS: 36415; 70450; 70491; 70496; 70498; 70551; 71045; 74177; 80053; 80061; 80307; 81001; 82140; 82550; 84146; 84443; 84484; 85025; 85610; 85730; 87086; 93306; 95816; 95819; J1953; J2060; J2405; J8597; Q9966; Q9967

== ENCOUNTER 2020-03-09 17:15 | Inpatient (IN) | payer MEDICARE, BC ==
[2020-03-09] MEDS ORDERED: Ondansetron PF 4 MG/2 ML Vial ONE (17:43)
[2020-03-09] MEDS ORDERED: Fentanyl 100 MCG/2 ML VIAL ONE (17:43)
[2020-03-09] MEDS ORDERED: Ketorolac Tromethamine 30 MG/ML VIAL ONE (19:56)
[2020-03-09] MEDS ORDERED: hydrALAZINE 20 MG/ML VIAL SLOW IVP PRN (21:34)
[2020-03-09] MEDS ORDERED: Ondansetron ODT 4 MG TAB PO PRN (21:34)
[2020-03-09] MEDS ORDERED: Ondansetron PF 4 MG/2 ML Vial IVP PRN (21:34)
[2020-03-09] MEDS ORDERED: Morphine 2 MG/ML VIAL SLOW IVP PRN (21:34)
[2020-03-09] MEDS ORDERED: Dextrose 5% in Water 1,000 ML IV PRN (21:34)
[2020-03-09] MEDS ORDERED: Dextrose 50% Abboject 50 ML SYRINGE SLOW IVP PRN (21:34)
[2020-03-09] MEDS ORDERED: Famotidine 20 MG TAB PO SCH (22:00)
--- NOTE | 2020-03-09 22:01 | HP ---
REQUESTING PHYSICIAN: Wesley Mederos DO CONSULTATION: Orthopedics, Wesley Espinal MD HISTORY OF PRESENT ILLNESS: The patient is a 74-year-old woman, who was brought to our facility as a transfer from [facility] after reported fall from a ladder, in which she landed on her left side. She was taken by ground EMS to the emergency department at [facility], where she underwent evaluation and examination and was noted to have a spiral fracture of her distal femur just above her knee replacement. The patient has [employer] insurance, but unfortunately her facilities that she would normally use were full and the patient was transferred to our facility for orthopedic evaluation and admission. The patient denied loss of consciousness or hitting her head or any syncopal episodes related to her fall. ALLERGIES: CODEINE, LACTOSE, PENICILLIN, TIZANIDINE, AND TRAMADOL. CURRENT MEDICATIONS: 1. Losartan. 2. Protonix. 3. Zoloft. 4. Meclizine. 5. Boniva. PAST MEDICAL HISTORY: CVA x2, hypertension, seizure disorder, right upper extremity DVT. PAST SURGICAL HISTORY: Vaginal mesh, sinus surgery, carpal tunnel surgery, hysterectomy, lumbar surgery x2, spinal stimulator placement, bilateral knee replacement. SOCIAL HISTORY: The patient lives at home with family. She denies drug, tobacco, or alcohol use. REVIEW OF SYSTEMS: 10-point review of systems is negative as otherwise stated. PHYSICAL EXAMINATION: VITAL SIGNS: Blood pressure 134/85, heart rate 64, respirations 16, and oxygen saturation is 95% on room air, and temperature is 98.4. GENERAL: The patient is resting comfortably in bed. She is awake, alert, conversant, appropriate. [place] Coma Scale is 15. Her chief complaint is left thigh pain. HEENT: Head is atraumatic, normocephalic. Eyes, extraocular motion intact. PERRLA bilaterally. Ears are atraumatic without discharge. Nose is atraumatic with discharge. Oropharynx is clear. NECK: Nontender. Trachea is midline. No JVD. CHEST: Clear to auscultation with good inspiratory and expiratory effort. HEART: Regular rate and rhythm. ABDOMEN: Soft, flat, nontender with active bowel sounds. PELVIS: Stable with some tenderness to the left hip. EXTREMITIES: Neurovascularly intact x4. Left lower extremity is immobilized in a long posterior splint. BACK: By report is atraumatic and nontender. LABORATORY FINDINGS: White blood cell count 9.6, hemoglobin 14.3, hematocrit 43.8, platelets 227, INR 0.9. Sodium 140, potassium 3.3, chloride 102, CO2 of 24, BUN 18, creatinine 0.92, glucose 128. RADIOGRAPHIC FINDINGS: Views of the left femur show a displaced spiral fracture of the distal femoral shaft. Views of the left knee again demonstrates a left femoral shaft fracture with displacement. ASSESSMENT AND PLAN: 1. Status post fall from ladder. 2. Left femoral shaft fracture. 3. Acute pain secondary to above. 4. History of cerebrovascular accident x2. 5. Hypertension. 6. Seizure disorder. 7. Upper extremity deep venous thrombosis. PLAN: Plan will be to admit the patient to the surgical floor. She will be n.p.o. after midnight. We will do pain control, pulmonary toilet, gastritis, and mechanical VTE prophylaxis. The patient was evaluated in the emergency department by Dr. Espinal and his plan is to take her to the operating room tomorrow for surgical repair of this fracture. The evaluation, examination, laboratory, and radiographic findings were discussed with Dr. Montes after this dictation. Job ID: [id number]
[2020-03-09] MEDS: Sodium Chloride 0.9% 1,000 ML IV SCH (22:06)
[2020-03-09] MEDS: Cyclobenzaprine 10 MG TAB PO PRN (22:07)
[2020-03-09] MEDS: Ibuprofen 600 MG TAB PO SCH (22:07)
[2020-03-09 22:23] VITALS: BMI 30.9
[2020-03-10] MEDS: Acetaminophen 325 MG TAB PO SCH ×4 (00:12→18:28)
[2020-03-10 02:23] LABS: SARS-CoV-2 MS2 Positive; SARS-CoV-2 N Gene Negative; SARS-CoV-2 S Gene Negative; SARS-CoV-2 by NAA Not Detected (NotDetected); SARS-CoV-2 orf1ab Negative
[2020-03-10 03:32] LABS: Bacteria/HPF None Seen HPF (None Seen); Bilirubin Negative (Negative); Blood, Urine Negative (Negative); Clarity Clear (Clear); Glucose, Urine (Dipstick) Normal (Negative); Ketone, Urine Negative (Negative); Leukocyte Negative Leu/uL (Negative); Nitrite Negative (Negative); Protein, Urine (Dipstick) Negative (Neg-Trace); RBC/HPF 0-3 HPF (0-3); Specific Gravity, Urine 1.021 (1.002-1.036); Squamous Epithelial 0-3 HPF (0-3); Urobilinogen Normal mg/dL (Less than 2); WBC/HPF 0-3 HPF (0-3); pH, Urine 5.5 (5.0-9.0)
[2020-03-10 05:35] LABS: #Lymphocytes 1.1 thou/uL (1.20-3.40); #Monocytes 0.6 thou/uL (0.11-0.59); %Basophils 0.4 % (0.0-1.0); %Eosinophils 0.4 % (0.0-10.0); %Lymphocytes 19.3 % (21.0-51.0); %Monocytes 9.7 % (0.0-10.0); %Neutrophils 70.3 % (42.0-75.0); Mean Corpuscular HGB CONC 32.5 g/dL (32.0-36.0); Mean Corpuscular Hemoglobin 32.1 pg (27.0-31.0); Mean Corpuscular Volume 98.8 fL (78.0-98.0); Mean Platelet Volume 7.5 fL (7.4-10.4); Platelet Count 168 thou/uL (130-400); RBC Distribution Width 11.4 % (11.5-14.5); Red Blood Cell (RBC) Count 3.44 mill/uL (4.20-5.40); White Blood Cell (WBC) Count 5.7 thou/uL (4.8-10.8)
[2020-03-10] MEDS: Sodium Chloride 0.9% 1,000 ML IV SCH (05:40)
[2020-03-10] MEDS: Cyclobenzaprine 10 MG TAB PO PRN (05:40)
[2020-03-10] MEDS: Ibuprofen 600 MG TAB PO SCH ×3 (05:41→22:06)
[2020-03-10 06:02] LABS: Anion Gap 11 mmol/L (10-20); BUN (Urea Nitrogen) 16 mg/dL (9.8-20.1); Calc. Creatinine Clearance 73 mL/min (70-130); Calcium 7.5 mg/dL (7.8-10.44); Carbon Dioxide 24 mmol/L (23-31); Chloride 106 mmol/L (98-107); Glucose 113 mg/dL (83-110); Potassium 3.2 mmol/L (3.5-5.1); Sodium 138 mmol/L (136-145)
--- NOTE | 2020-03-10 07:19 | CON ---
DATE OF CONSULTATION: 03/09/2020 REQUESTING PHYSICIAN: Dr. Mederos. BRIEF HISTORY OF PRESENT ILLNESS: The patient is a 74-year-old lady who was transferred from the [facility] following a fall from a ladder in which she landed awkwardly on her left side. Upon evaluation at [facility], she was found to have a distal femur periprosthetic fracture with a long spiral fracture extending up above the total knee. This total knee was placed four years ago by Dr. Brandon. Given this finding, the patient was subsequently transferred to [facility] for further care. The patient does have insurance that currently [facility] is not contract for; however, calls were made to the neighboring facilities, none of which were able to accommodate this patient. As such, she was transferred to [facility] in [place]. The patient denies loss of consciousness. PAST MEDICAL HISTORY: Remarkable for hypertension, history of DVT, prior strokes as well as seizure disorder. PAST SURGICAL HISTORY: Includes lumbar spine surgery x2, bilateral total knee arthroplasties, previous carpal tunnel release, hysterectomy, as well as sinus surgery. MEDICATIONS: Include Protonix, Zoloft, meclizine, Boniva, and losartan. ALLERGIES LISTED: Include penicillin, tramadol, codeine, lactulose, and tizanidine. FAMILY HISTORY: Noncontributory for this fracture. SOCIAL HISTORY: Patient lives in a private residence in the [facility]. She denies cigarettes, alcohol, or drug use. REVIEW OF SYSTEMS: The patient denies recent fevers, chills, or sweats. Patient denies current chest pain, shortness of breath, or cough. The patient denies numbness, tingling, or weakness in her extremities prior to this injury. PHYSICAL EXAMINATION: VITAL SIGNS: She is found to have temperature of 98.4, heart rate of 64, respiratory rate of 16, and blood pressure 134/85. GENERAL: The patient is examined in her emergency room bed at [facility]. HEENT: Atraumatic and normocephalic. HEART: Shows a regular rate and rhythm without murmur. LUNGS: Clear to auscultation bilaterally with good breath sounds. Chest wall is nontender to palpation. ABDOMEN: Flat, soft with normal bowel sounds. PELVIS: Stable to compression, but she does have pain that is referred down the left leg with any movement of this left lower extremity. EXTREMITIES: Remarkable for bilateral upper extremities that are atraumatic. Right lower extremity that is also atraumatic with a midline anterior knee incision from her prior total knee arthroplasty. Distal sensation is intact. She is moving her ankle and toes. The left lower extremity is remarkable for a long-leg splint. She is moving her ankle and toes, but states that she does have knee pain when she does so. I do not appreciate pain with passive stretch. Her calf musculature appears soft. She has intact subjective sensation. LABORATORY DATA: She is found have a white count of 9.6, hematocrit of 43.8, and 227,000 platelets . Her INR is 0.9. X-RAYS: Two-view x-ray, left femur and two-view x-ray of the left knee was obtained. This remarkable for a spiral fracture of the distal femur beginning above a total knee arthroplasty. ASSESSMENT: A 74-year-old lady status post fall from ladder sustaining an isolated extremity injury of left femoral shaft, which is spiral above the total knee arthroplasty. The patient with history of stroke, hypertension, and seizure disorder as well as prior history of deep venous thrombosis of an upper extremity. PLAN: At this time, the patient is admitted to the Trauma Service. We will make her n.p.o. after midnight with plans to proceed to the operating room tomorrow for surgical repair of this distal femur fracture. This evening, I did speak with the patient regarding the procedure. We discussed risks and benefits of the procedure. Risks include, but are not limited to bleeding, infection, nerve injury, DVT, PE, malunion, nonunion, loss of limb or life. The patient appears to understand and does wish to proceed. Written consent will be obtained prior to surgery. Job ID: [id number]
[2020-03-10] MEDS ORDERED: Fentanyl 100 MCG/2 ML VIAL ONE ×3 (09:43→12:22)
[2020-03-10] MEDS ORDERED: Midazolam HCl 2 mg/2 ml Vial ONE (09:43)
[2020-03-10] MEDS ORDERED: Dexamethasone 20 MG/5 ML VIAL ONE (09:53)
[2020-03-10] MEDS ORDERED: Labetalol HCl 100 MG/20 ML VIAL ONE (09:53)
[2020-03-10] MEDS ORDERED: PROPOFOL 200 MG/20 ML VIAL ONE (09:53)
[2020-03-10] MEDS ORDERED: Glycopyrrolate 0.2 MG/ML 5 ML SYRINGE ONE (09:53)
[2020-03-10] MEDS ORDERED: Bupivacaine HCl 0.5%/Epinephrine 1:200,000/PF 30 ml Vial ONE (09:53)
[2020-03-10] MEDS ORDERED: ePHEDrine 50 MG/ML VIAL ONE (09:53)
[2020-03-10] MEDS ORDERED: Ondansetron PF 4 MG/2 ML Vial ONE (09:53)
[2020-03-10] MEDS ORDERED: PHENYLEPHRINE-NS 100 MCG/ML 10 ML SYRINGE ONE (09:53)
[2020-03-10] MEDS ORDERED: Lidocaine 1% PF 5 ML VIAL ONE (09:53)
[2020-03-10] MEDS ORDERED: Rocuronium Bromide 10 MG/ML (10ML VIAL) ONE (09:53)
[2020-03-10] MEDS ORDERED: Clindamycin/D5W 900 mg/50 ml Premix Bag ONE (10:10)
[2020-03-10] MEDS ORDERED: Levofloxacin 500 mg/D5W 100 ml Premix Bag ONE (10:10)
[2020-03-10] MEDS ORDERED: SUGAMMADEX SODIUM 200 MG/2 ML VIAL ONE (11:43)
[2020-03-10] MEDS ORDERED: Promethazine HCl 25 MG/ML VIAL IM PRN (12:10)
[2020-03-10] MEDS ORDERED: Ondansetron HCl/PF 4 MG/2 ML Vial IVP PRN (12:10)
[2020-03-10] MEDS ORDERED: Promethazine HCl 25 MG/ML VIAL SLOW IVP PRN (12:10)
--- NOTE | 2020-03-10 12:14 | RAD ---
LEFT FEMUR 2 VIEWS: Date: 03/10/2020 HISTORY: Fracture of left femur. FINDINGS/IMPRESSION: Four spot fluoroscopic intraoperative images of the left femur demonstrate interval reduction and int ernal fixation of the left femoral shaft fracture since the previous day's exam. Intramedullary nitza a nd locking screws have been placed. Changes of total knee arthroplasty are again seen. POS: JACOBO
--- NOTE | 2020-03-10 12:58 | OP ---
DATE OF PROCEDURE: 03/10/2020 PROCEDURE PERFORMED: Intramedullary nail fixation of left distal femur fracture. PREOPERATIVE DIAGNOSIS: Displaced left distal femur fracture, periprosthetic. POSTOPERATIVE DIAGNOSIS: Displaced left distal femur fracture, periprosthetic. COMPLICATIONS: None. ESTIMATED BLOOD LOSS: 150 mL. CIVIL SERVICE WORKER: Rea Arellano PA-C. IMPLANTS: Synthes size 10 retrograde femoral nail with Crosslock screws. INDICATIONS: Ms. Reagan is a 74-year-old female who has fallen. She fractured her left distal femur. She has a total knee arthroplasty. The fractures are just above the total knee. She has been indicated for retrograde intramedullary nail to restore anatomic alignment and promote healing. Risks have been reviewed with her in detail. She has elected to proceed with the operation. DESCRIPTION OF PROCEDURE: Ms. Reagan was identified in the preoperative holding area. Her correct extremity was marked. She was carried to the operating room. She was positioned supine. General anesthesia was induced. A multidisciplinary time-out was performed. The left lower extremity was prepped and draped in sterile fashion. We began the procedure with a small incision over the anterior knee. We dissected down through the subcutaneous tissues to the patellar retinaculum. We made a medial parapatellar arthrotomy. At this point, we exposed the underlying total knee arthroplasty. We identified the notch. We then inserted a guidewire in appropriate position using intraoperative x-ray. We carefully over-reamed the guidewire. We measured an appropriate length after a ball-tipped guidewire was placed across the fracture site and the fracture was reduced. At this point, we over-reamed the guidewire up to a size 11 reamer. This gave good chatter. We then inserted our retrograde femoral nail. We placed a proximal Crosslock screw and then backslapped. At this point, we placed 2 distal Crosslock screws. We removed the instrumentation and thoroughly irrigated. We took final x-ray images. At this point, we closed in layers including the arthrotomy. A sterile dressing was applied. The patient was taken to the recovery room in good condition. The evaluation assistant was involved in positioning the patient and limb, Wound exposure, retraction, fracture reduction, wound closure, and dressing placement. Job ID: [id number] MTDD
[2020-03-10] MEDS: Famotidine 20 MG TAB PO SCH ×2 (13:42→20:10)
[2020-03-10] MEDS: Clindamycin/D5W 900 MG in Premix Bag 1 BAG IVPB SCH (18:25)
[2020-03-11] MEDS: Acetaminophen 325 MG TAB PO SCH ×5 (01:12→23:10)
[2020-03-11] MEDS: Clindamycin/D5W 900 MG in Premix Bag 1 BAG IVPB SCH (01:13)
[2020-03-11] MEDS: Ibuprofen 600 MG TAB PO SCH ×3 (05:49→23:09)
[2020-03-11] MEDS: Cyclobenzaprine 10 MG TAB PO PRN ×2 (09:08→20:19)
[2020-03-11] MEDS: Famotidine 20 MG TAB PO SCH ×2 (09:10→20:15)
--- NOTE | 2020-03-11 14:46 | PRG ---
DATE OF SERVICE: 03/11/2020 This is Arnoldo Marshall PA-C dictating a report for Dr. Devine. SUBJECTIVE: The patient is currently on the surgical floor. She is postop day 1, status post intramedullary nail fixation of a left distal femur fracture. She had no issues overnight. This morning, she is tolerating a diet. Her pain is controlled and she is going to work with Physical and Occupational Therapy. PHYSICAL EXAMINATION: VITAL SIGNS: Temperature 98.7, heart rate 71, blood pressure 113/67, respirations 18, oxygen saturation is 99% on 2 L via nasal cannula. GENERAL: The patient is resting comfortably in bed. She is awake, alert, conversant, appropriate. [place] Coma Scale is 15. She has just complete eating breakfast. HEENT: Unremarkable. LUNGS: Clear to auscultation bilaterally. HEART: Regular rate and rhythm. ABDOMEN: Soft, nontender with active bowel sounds. EXTREMITIES: Neurovascularly intact x4. LABORATORY DATA: There are no labs or radiographs to review this morning. ASSESSMENT AND PLAN: 1. Status post fall from ladder. 2. Left femoral shaft fracture, status post open reduction and internal fixation of same. 3. History of CVA x2, hypertension, seizure disorder, and upper extremity DVT. Plan will be to encourage physical and occupational therapy. Chemical VTE starting tomorrow and await placement decision. The patient was evaluated this morning with Dr. Devine during rounds. Job ID: [id number]
[2020-03-12] MEDS: Ibuprofen 600 MG TAB PO SCH ×3 (05:39→21:12)
[2020-03-12] MEDS: Acetaminophen 325 MG TAB PO SCH ×4 (05:40→23:01)
[2020-03-12 05:45] LABS: #Eosinphils 0.1 thou/uL (0.0-0.7); #Lymphocytes 1.2 thou/uL (1.20-3.40); #Monocytes 0.4 thou/uL (0.11-0.59); #Neutrophils 2.9 thou/uL (1.40-6.50); %Basophils 0.4 % (0.0-1.0); %Eosinophils 1.2 % (0.0-10.0); %Lymphocytes 25.5 % (21.0-51.0); %Monocytes 7.7 % (0.0-10.0); %Neutrophils 65.2 % (42.0-75.0); Hemoglobin 8.8 g/dL (12.0-16.0); Mean Corpuscular HGB CONC 33.6 g/dL (32.0-36.0); Mean Corpuscular Hemoglobin 32.6 pg (27.0-31.0); Mean Platelet Volume 7.4 fL (7.4-10.4); Platelet Count 141 thou/uL (130-400); RBC Distribution Width 11.6 % (11.5-14.5); Red Blood Cell (RBC) Count 2.71 mill/uL (4.20-5.40); White Blood Cell (WBC) Count 4.5 thou/uL (4.8-10.8)
[2020-03-12 06:07] LABS: Anion Gap 12 mmol/L (10-20); BUN (Urea Nitrogen) 14 mg/dL (9.8-20.1); Calc. Creatinine Clearance 74 mL/min (70-130); Calcium 7.2 mg/dL (7.8-10.44); Carbon Dioxide 26 mmol/L (23-31); Chloride 107 mmol/L (98-107); Glucose 106 mg/dL (83-110); Magnesium 1.9 mg/dL (1.6-2.6); Sodium 142 mmol/L (136-145)
[2020-03-12 06:47] LABS: Phosphorus 1.6 mg/dL (2.3-4.7); Potassium 2.8 mmol/L (3.5-5.1)
[2020-03-12] MEDS ORDERED: Potassium Phosphate 30 MMOL in Sodium Chloride 0.9% 250 ML 250 ML IVPB SCH (07:00)
[2020-03-12] MEDS ORDERED: Magnesium Sulfate 2 GM in Sodium Chloride 0.9% 250 ML 250 ML IVPB SCH (07:00)
[2020-03-12] MEDS ORDERED: Magnesium 2 GM/50 ML 2 GM in Premix Bag 1 BAG IVPB SCH (07:15)
[2020-03-12] MEDS: Famotidine 20 MG TAB PO SCH ×2 (08:58→21:12)
[2020-03-12] MEDS: Enoxaparin Sodium 40 MG/0.4 ML SYRINGE SC SCH (08:58)
--- NOTE | 2020-03-12 16:08 | PRG ---
DATE OF SERVICE: 03/12/2020 SUBJECTIVE: The patient is currently on the surgical floor. She is postop day 2, status post intramedullary nail fixation of a left distal femur fracture. She began working with physical and occupational therapy today. She reports that she had no issues overnight. She is tolerating a diet. Her pain is controlled. OBJECTIVE: VITAL SIGNS: Temperature is 98.5, heart rate 69, blood pressure 120/73, respirations 12, oxygen saturation 95% on room air. GENERAL: The patient is resting comfortably in a chair at bedside. She is awake, alert, conversant, appropriate. [place] Coma Scale is 15. HEENT: Unremarkable. LUNGS: Clear to auscultation bilaterally. HEART: Regular rate and rhythm. ABDOMEN: Soft, nontender with active bowel sounds. EXTREMITIES: Neurovascularly intact x4. LABORATORY FINDINGS: White blood cell count 4.5, hemoglobin 8.8, hematocrit 26.3, platelets 141. Sodium 142, potassium 2.8, chloride 107, CO2 of 26, BUN 14, creatinine 0.77, glucose 106, magnesium 1.9, phosphorus 1.6. There are no radiographs reviewed this morning. ASSESSMENT: 1. Status post fall from ladder. 2. Status post open reduction and internal fixation of left femoral shaft fracture. 3. Hypokalemia. 4. Hypophosphatemia. 5. History of cerebrovascular accident x2, hypertension, seizure disorder, and upper extremity deep venous thrombosis. Plan will be to correct her electrolytes. Continue encouraging physical and occupational therapy. Repeat labs this afternoon and can begin chemical VTE prophylaxis. We will also start exploring placement options. The patient was evaluated this morning with Dr. Devine during rounds. Job ID: [id number]
[2020-03-12 18:22] LABS: Anion Gap 13 mmol/L (10-20); BUN (Urea Nitrogen) 12 mg/dL (9.8-20.1); Calc. Creatinine Clearance 69 mL/min (70-130); Calcium 7.5 mg/dL (7.8-10.44); Carbon Dioxide 24 mmol/L (23-31); Chloride 104 mmol/L (98-107); Glucose 154 mg/dL (83-110); Magnesium 2.5 mg/dL (1.6-2.6); Sodium 138 mmol/L (136-145)
[2020-03-12 18:34] LABS: Phosphorus 1.8 mg/dL (2.3-4.7); Potassium 2.7 mmol/L (3.5-5.1)
[2020-03-12] MEDS: tiZANidine HCl 4 MG TAB PO PRN (19:35)
[2020-03-12] MEDS: Latanoprost 0.005% Ophth Soln 2.5 ml Bottle EA EYE SCH (21:14)
[2020-03-12] MEDS: Potassium Phosphate 30 MMOL in Sodium Chloride 0.9% 250 ML 250 ML IVPB SCH (21:15)
[2020-03-12] MEDS ORDERED: Miconazole 2% Vaginal Cream 45 GM TUBE TOP SCH (22:15)
[2020-03-13 02:04] LABS: Anion Gap 13 mmol/L (10-20); BUN (Urea Nitrogen) 17 mg/dL (9.8-20.1); Calc. Creatinine Clearance 78 mL/min (70-130); Calcium 7.1 mg/dL (7.8-10.44); Carbon Dioxide 22 mmol/L (23-31); Chloride 108 mmol/L (98-107); Glucose 118 mg/dL (83-110); Magnesium 2.4 mg/dL (1.6-2.6); Phosphorus 3.3 mg/dL (2.3-4.7); Potassium 3.1 mmol/L (3.5-5.1); Sodium 140 mmol/L (136-145)
[2020-03-13] MEDS: Potassium Phosphate 30 MMOL in Sodium Chloride 0.9% 250 ML 250 ML IVPB SCH (03:00)
[2020-03-13] MEDS: Acetaminophen 325 MG TAB PO SCH ×3 (05:30→17:21)
[2020-03-13] MEDS: Ibuprofen 600 MG TAB PO SCH ×3 (05:30→21:07)
[2020-03-13 05:51] LABS: #Eosinphils 0.1 thou/uL (0.0-0.7); #Lymphocytes 1.2 thou/uL (1.20-3.40); #Monocytes 0.3 thou/uL (0.11-0.59); %Basophils 0.1 % (0.0-1.0); %Eosinophils 4.2 % (0.0-10.0); %Lymphocytes 33.2 % (21.0-51.0); %Monocytes 7.2 % (0.0-10.0); %Neutrophils 55.4 % (42.0-75.0); Hemoglobin 8.7 g/dL (12.0-16.0); Mean Corpuscular HGB CONC 32.5 g/dL (32.0-36.0); Mean Corpuscular Hemoglobin 31.6 pg (27.0-31.0); Mean Platelet Volume 7.6 fL (7.4-10.4); Platelet Count 151 thou/uL (130-400); RBC Distribution Width 11.7 % (11.5-14.5); Red Blood Cell (RBC) Count 2.76 mill/uL (4.20-5.40); White Blood Cell (WBC) Count 3.5 thou/uL (4.8-10.8)
[2020-03-13 06:23] LABS: Anion Gap 14 mmol/L (10-20); BUN (Urea Nitrogen) 14 mg/dL (9.8-20.1); Calc. Creatinine Clearance 77 mL/min (70-130); Calcium 7.3 mg/dL (7.8-10.44); Carbon Dioxide 21 mmol/L (23-31); Chloride 108 mmol/L (98-107); Glucose 105 mg/dL (83-110); Magnesium 2.2 mg/dL (1.6-2.6); Potassium 3.4 mmol/L (3.5-5.1); Sodium 140 mmol/L (136-145)
[2020-03-13] MEDS ORDERED: Miconazole 2% Cream 30 GM TUBE TOP SCH (09:00)
[2020-03-13] MEDS: Meclizine HCl 25 MG TAB PO SCH ×2 (09:11→11:44)
[2020-03-13] MEDS: Aspirin 81 mg Enteric Coated Tablet PO SCH (09:11)
[2020-03-13] MEDS: Pramipexole Di-HCl 0.25 MG TAB PO SCH (09:12)
[2020-03-13] MEDS: Enoxaparin Sodium 40 MG/0.4 ML SYRINGE SC SCH (09:12)
[2020-03-13] MEDS: Famotidine 20 MG TAB PO SCH ×2 (09:12→21:06)
[2020-03-13] MEDS: Losartan 25 MG TAB PO SCH (09:13)
[2020-03-13] MEDS: Miconazole 2% Vaginal Cream 45 GM TUBE TOP SCH ×2 (09:13→21:08)
[2020-03-13] MEDS: Senokot S 8.6-50 MG TAB PO SCH ×2 (09:14→21:08)
[2020-03-13] MEDS: Polyethylene Glycol 3350 17 GM Packet PO SCH (09:14)
[2020-03-13] MEDS: tiZANidine HCl 4 MG TAB PO PRN (11:44)
--- NOTE | 2020-03-13 14:13 | PRG ---
DATE OF SERVICE: 03/13/2020 SUBJECTIVE: Sabiha is a 74-year-old female, postop day #3 from an intramedullary nail fixation of a distal femur fracture after a fall from a ladder. She is doing relatively well. Her pain has improved. She is slowly getting better. She was able to ambulate back and forth to the door. OBJECTIVE: VITAL SIGNS: Temperature 97.6, pulse 83, respiratory rate of 16, and blood pressure 147/75. GENERAL: She is alert and oriented to person, place, time, and situation. Responsive and appropriate with the examiner. Extremities: Incision is clean, closed. No erythema. No strike through. No malrotation. She is neurovascularly intact in the right lower extremity. IMPRESSION: A 74-year-old female, postop day #3 for a right intramedullary nail fixation for distal metadiaphyseal femur fracture. PLAN: Continue current care. Disposition per Trauma Team. I think she will be most appropriately placed in skilled facility. Job ID: [id number]
--- NOTE | 2020-03-13 18:26 | PRG ---
DATE OF SERVICE: 03/13/2020 SUBJECTIVE: The patient is currently on the surgical floor. She is status post fall from a ladder, which she sustained a left femoral shaft fracture, which she has undergone open reduction and internal fixation of same. She continues to work with physical and occupational therapy. She is tolerating a diet. Her pain is controlled and she is awaiting placement. PHYSICAL EXAMINATION: VITAL SIGNS: Temperature 98.6, heart rate 73, blood pressure 126/72, respirations 16, and oxygen saturation is 96% on room air. GENERAL: The patient is resting comfortably in a chair at her bedside. She was able to walk approximately 100 feet this morning with therapy. She is alert, conversant, appropriate. [place] Coma Scale is 15. HEENT: Unremarkable. LUNGS: Clear to auscultation bilaterally. HEART: Regular rate and rhythm. ABDOMEN: Soft, nondistended with active bowel sounds. EXTREMITIES: Neurovascularly intact x4. LABORATORY FINDINGS: White blood cell count 3.5, hemoglobin 8.7, hematocrit 26.7, and platelets 151. Sodium 140, potassium 3.4, chloride 108, CO2 of 21, BUN 14, creatinine 0.74, glucose 105, magnesium 2.2, and phosphorus 4.0. There are no radiographs reviewed this morning. ASSESSMENT: 1. Status post fall from ladder. 2. Status post open reduction and internal fixation of left femoral shaft fracture. 3. History of cerebrovascular accident x2. 4. Hypertension. 5. Seizure disorder. 6. Upper extremity deep venous thrombosis. PLAN: Will be to continue encouraging physical and occupational therapy, supportive care and await placement. The patient was evaluated this morning with Dr. Ruiz during rounds. Job ID: [id number]
[2020-03-13] MEDS: Latanoprost 0.005% Ophth Soln 2.5 ml Bottle EA EYE SCH (21:07)
[2020-03-14] MEDS: tiZANidine HCl 4 MG TAB PO PRN ×2 (00:02→11:22)
[2020-03-14] MEDS: Ibuprofen 600 MG TAB PO SCH ×2 (05:07→14:07)
[2020-03-14] MEDS: Acetaminophen 325 MG TAB PO SCH ×4 (05:07→17:55)
[2020-03-14] MEDS: Pramipexole Di-HCl 0.25 MG TAB PO SCH (08:18)
[2020-03-14] MEDS: Aspirin 81 mg Enteric Coated Tablet PO SCH (08:18)
[2020-03-14] MEDS: Miconazole 2% Vaginal Cream 45 GM TUBE TOP SCH (08:18)
[2020-03-14] MEDS: Losartan 25 MG TAB PO SCH (08:19)
[2020-03-14] MEDS: Famotidine 20 MG TAB PO SCH (08:19)
[2020-03-14] MEDS: Senokot S 8.6-50 MG TAB PO SCH (08:20)
[2020-03-14] MEDS: Enoxaparin Sodium 40 MG/0.4 ML SYRINGE SC SCH (08:20)
[2020-03-14] MEDS: Polyethylene Glycol 3350 17 GM Packet PO SCH (08:20)
[2020-03-14] MEDS: Meclizine HCl 25 MG TAB PO SCH ×2 (08:20→11:22)
[2020-03-14 19:14] VITALS: BP 146/76; TEMP 99.2
--- NOTE | 2020-03-15 03:13 | DIS ---
DATE OF ADMISSION: 03/09/2020 DATE OF DISCHARGE: 03/14/2020 ADMITTING ATTENDING: Dr. Devine. DISCHARGE ATTENDING: Dr. Devine. CONSULTS: Orthopedic Surgery. PROCEDURES: Intramedullary nail fixation of left distal femur fracture on 03/10/2020. PRIMARY DIAGNOSIS: Left femoral shaft fracture secondary to fall from ladder. SECONDARY DIAGNOSES: 1. Open reduction and internal fixation of left femoral fracture. 2. History of cerebrovascular accidentm Hypertension, Seizure disorder, Upper extremity deep venous thrombosis. 3. Hypokalemia, resolved 4. Hypophosphatemia, resolved DISCHARGE MEDICATIONS: 1. Aspirin 81 mg p.o. daily. 2. Ibuprofen 600 mg p.o. q.8 hours. 3. Latanoprost 2.5 mL bottle one drop each eye at bedtime. 4. Losartan 50 mg p.o. daily. 5. Meclizine 25 mg half a tab p.o. p.r.n. 6. Memantine 10 mg p.o. b.i.d. 7. Pramipexole 0.25 mg p.o. daily. 8. Sertraline 50 mg p.o. at bedtime. 9. Tizanidine 4 mg p.o. p.r.n. 10. Atorvastatin 40 mg p.o. at bedtime. 11. Librax one tab p.o. b.i.d. 12. Protonix 40 mg p.o. b.i.d. HISTORY OF PRESENT ILLNESS: The patient is a 74-year-old female who was brought to our facility as a transfer from [place] after a fall from a ladder in which she fell and landed on her left side. In the outside ED, she was noted to have a spiral fracture of her left distal femur just above her knee replacement. The patient denied loss of consciousness or hitting her head. Orthopedic Surgery, Dr. Espinal was consulted from the ED. The plan was for the surgery the following day. In the ED, the patient's pain was controlled with Toradol, fentanyl and IV fluids. IMAGING: Left femur, 03/09/2020. Impression: Displaced spiral fracture of the distal femoral shaft. X-ray of the left knee on 03/09/2020 shows knee replacement with no signs of loosening. LABORATORY DATA: White blood cell 9.6, hemoglobin 14.3, hematocrit 43.8, sodium 140, potassium 3.3, BUN 18, creatinine 0.92. PT 12.3, INR 0.9. COVID negative. On 03/10/2020, patient underwent orthopedic surgery as above. She tolerated it well. After surgery, patient began working with PT, OT. Her pain was well controlled and she was able to participate with physical therapy without limitation. She was tolerating diet, voiding and stooling. At one point in her stay, she was found to be hypokalemic with a potassium of 2.8 and hypophosphatemic with a phosphorus of 1.6. Electrolytes were replaced and the patient's levels had returned to normal prior to discharge. The patient was deemed stable for discharge. DISCHARGE INSTRUCTIONS: 1. Location: Inpatient rehab, [facility]. 2. Diet: Regular. 3. Activity. Follow PT/OT guidelines. 4. Followup: With PCP and Orthopedic Surgery as directed. Job ID: [id number] MTDD
--- NOTE | 2020-03-15 05:39 | PRG ---
DATE OF SERVICE: 03/14/2020 SUBJECTIVE: The patient is a 74-year-old female, postop day #4 from an intramedullary nail fixation of distal femur fracture following a fall from a ladder. The patient is doing well today. Her pain has improved. She has been able to tolerate working with physical therapy. OBJECTIVE: VITAL SIGNS: Blood pressure 131/73, pulse 70, respiratory rate 14, temperature 98.6, O2 saturation 97% on room air. GENERAL: The patient is sitting up in a chair beside the bed and is comfortable. She was able to walk 350 feet with physical therapy yesterday. She is alert and conversant and appropriate. GCS is 15. HEENT: Unremarkable. LUNGS: Nonlabored breathing. Equal chest rise. HEART: Regular rate and rhythm. ABDOMEN: Soft, nondistended. EXTREMITIES: Neurovascularly intact x4. LABORATORY FINDINGS: No new labs overnight. ASSESSMENT: 1. Status post fall from ladder. 2. Status post open reduction and internal fixation of left femoral shaft fracture. 3. History of cerebrovascular accident x2. 4. Hypertension. 5. Seizure disorder. 6. Upper extremity deep vein thrombosis. PLAN: We will continue supportive treatment including pain control. Encourage PT/OT. The patient has been approved for bed at [facility], but they are currently full. Likely to discharge tomorrow. The patient was seen and evaluated with Dr. Devine on morning rounds. Job ID: [id number]
--- NOTE | 2020-03-18 11:15 | EKG ---
Test Reason : Blood Pressure : / mmHG Vent. Rate : 061 BPM Atrial Rate : 061 BPM P-R Int : 132 ms QRS Dur : 068 ms QT Int : 458 ms P-R-T Axes : 068 031 027 degrees QTc Int : 461 ms Sinus rhythm with occasional Premature ventricular complexes Possible Left atrial enlargement Septal infarct , age undetermined Abnormal ECG Confirmed by MICHAEL GUPTA ([id number]), story editor HUGO HSU ([id number]) on 03/18/2020 11:14:45 AM Referred By: Confirmed By:MICHAEL GUPTA
== END 2020-03-14 19:37 | DRG 481 ==
LOC: ERS 17:15 → SURG A 18:52
PROVIDERS: ADMIT Surgery; ATTEND Surgery
PROC: 0QSC06Z Reposition Left Lower Femur with Intramedullary Internal Fixation Device, Open Approach (ICD-10-PCS; principal; 2020-03-10)
DX: S72.492A Other fracture of lower end of left femur, initial encounter for closed fracture (principal); M97.02XA Periprosthetic fracture around internal prosthetic left hip joint, initial encounter; I82.629 Acute embolism and thrombosis of deep veins of unspecified upper extremity; I10 Essential (primary) hypertension; G40.909 Epilepsy, unspecified, not intractable, without status epilepticus; Z96.653 Presence of artificial knee joint, bilateral; W11.XXXA Fall on and from ladder, initial encounter; E83.39 Other disorders of phosphorus metabolism; E87.6 Hypokalemia; Z88.0 Allergy status to penicillin; Z88.8 Allergy status to other drugs, medicaments and biological substances; Z90.710 Acquired absence of both cervix and uterus; Z86.73 Personal history of transient ischemic attack (TIA), and cerebral infarction without residual deficits
CPT/HCPCS: 36415; 76000; 80048; 81001; 83735; 84100; 85025; 86850; 86900; 86901; 87635; 93005; 96374; 96375; C1713; G0390; J1100; J1650; J1885; J1956; J2250; J2270; J2405; J2704; J3010; J3475; J3490; J7050; U0003

== ENCOUNTER 2020-07-22 15:50 | Emergency (ER) | payer MEDICARE, BC ==
[2020-07-22] MEDS ORDERED: Dexamethasone 4 mg/ml Vial ONE (16:53)
== END 2020-07-22 17:15 | disposition home or self-care (01) ==
LOC: ERS 15:50
DX: M25.552 Pain in left hip (principal); M54.9 Dorsalgia, unspecified; Z79.899 Other long term (current) drug therapy; I10 Essential (primary) hypertension
CPT/HCPCS: 96372; J1100

== ENCOUNTER 2020-08-02 13:04 | Outpatient (CLI) | payer MEDICARE, BC ==
[2020-08-03 11:48] LABS: SARS-CoV-2 PCR by NAA Not Detected (NotDetected)
== END 2020-08-02 13:05 | disposition home or self-care (01) ==
LOC: LABBT 13:04
PROVIDERS: ATTEND Orthopaedic Surgery
DX: Z01.812 Encounter for preprocedural laboratory examination (principal); T85.848A Pain due to other internal prosthetic devices, implants and grafts, initial encounter
CPT/HCPCS: U0003; U0005

== ENCOUNTER 2020-08-07 10:32 | Observation (INO) | payer MEDICARE, BC ==
[2020-08-04 12:14] VITALS: BMI 27.9
[2020-08-07] MEDS ORDERED: Levofloxacin 500 mg/D5W 100 ml Premix Bag ONE (11:33)
[2020-08-07] MEDS ORDERED: Clindamycin/D5W 900 mg/50 ml Premix Bag ONE (11:34)
[2020-08-07] MEDS ORDERED: Fentanyl 100 MCG/2 ML VIAL ONE ×4 (12:13→14:40)
[2020-08-07] MEDS ORDERED: PROPOFOL 200 MG/20 ML VIAL ONE (13:08)
[2020-08-07] MEDS ORDERED: Ondansetron PF 4 MG/2 ML Vial ONE ×3 (13:08→17:46)
[2020-08-07] MEDS ORDERED: Lidocaine 1% PF 5 ML VIAL ONE (13:08)
[2020-08-07] MEDS ORDERED: PHARMACY TO RENALLY ADJUST ABX FS PRN (14:00)
[2020-08-07] MEDS ORDERED: Labetalol HCl 100 MG/20 ML VIAL ONE (14:40)
[2020-08-07] MEDS ORDERED: hydrALAZINE 20 MG/ML VIAL ONE (14:40)
[2020-08-07] MEDS ORDERED: HYDROmorphone 2 MG/ML VIAL ONE (14:49)
[2020-08-07] MEDS: Ondansetron PF 4 MG/2 ML Vial IVP PRN (18:24)
[2020-08-07] MEDS: Fentanyl 100 MCG/2 ML VIAL SLOW IVP PRN ×2 (18:24→22:34)
[2020-08-07] MEDS: HYDROcodone/Acetaminophen 5/325 mg Tablet PO PRN (21:05)
[2020-08-07] MEDS: Aspirin 81 mg Enteric Coated Tablet PO SCH (21:05)
[2020-08-07] MEDS: Clindamycin/D5W 900 MG in Premix Bag 1 BAG IVPB SCH (21:06)
[2020-08-08] MEDS: Fentanyl 100 MCG/2 ML VIAL SLOW IVP PRN (03:23)
[2020-08-08] MEDS: Clindamycin/D5W 900 MG in Premix Bag 1 BAG IVPB SCH (04:19)
[2020-08-08] MEDS: Ondansetron PF 4 MG/2 ML Vial IVP PRN ×2 (04:19→10:51)
[2020-08-08 07:09] LABS: Band 9 % (5-11); Hemoglobin 11.5 g/dL (12.0-16.0); Lymphocytes 19 % (21-51); MDiff Complete? YES; Mean Corpuscular HGB CONC 34.9 g/dL (32.0-36.0); Mean Corpuscular Hemoglobin 33.9 pg (27.0-31.0); Mean Corpuscular Volume 97.3 fL (78.0-98.0); Mean Platelet Volume 8.5 fL (7.4-10.4); Monocytes 4 % (0-10); Neutrophil 66 % (42-75); Platelet Count 134 thou/uL (130-400); Platelet Morphology Comment Appears Adequate; RBC Distribution Width 12.5 % (11.5-14.5); RBC Morphology Normal; Reactive Lymphocytes 2 % (0-10); Red Blood Cell (RBC) Count 3.39 mill/uL (4.20-5.40); White Blood Cell (WBC) Count 5.2 thou/uL (4.8-10.8)
[2020-08-08] MEDS: Aspirin 81 mg Enteric Coated Tablet PO SCH ×2 (08:02→19:58)
[2020-08-08] MEDS ORDERED: Meclizine HCl 25 MG TAB PO PRN (08:02)
[2020-08-08] MEDS: HYDROcodone/Acetaminophen 5/325 mg Tablet PO PRN ×2 (08:03→13:56)
[2020-08-08] MEDS: Meloxicam 15 MG TAB PO SCH (08:38)
[2020-08-08] MEDS: DULoxetine 30 MG CAP PO SCH ×2 (08:39→19:58)
[2020-08-08] MEDS: Losartan 25 MG TAB PO SCH (08:40)
[2020-08-08] MEDS: Miconazole 2% Vaginal Cream 45 GM TUBE TOP SCH ×2 (09:36→19:59)
[2020-08-08] MEDS: tiZANidine HCl 4 MG TAB PO PRN ×2 (11:21→19:58)
[2020-08-08] MEDS: Acetaminophen 325 MG TAB PO SCH ×3 (11:21→23:25)
[2020-08-08] MEDS: Ibuprofen 600 MG TAB PO SCH ×2 (13:55→19:58)
[2020-08-08] MEDS ORDERED: Latanoprost 0.005% Ophth Soln 2.5 ml Bottle EA EYE SCH (21:00)
[2020-08-09] MEDS: Acetaminophen 325 MG TAB PO SCH ×2 (06:01→12:01)
[2020-08-09] MEDS: Ibuprofen 600 MG TAB PO SCH (06:01)
[2020-08-09] MEDS: Meloxicam 15 MG TAB PO SCH (08:28)
[2020-08-09] MEDS: DULoxetine 30 MG CAP PO SCH (08:28)
[2020-08-09] MEDS: Losartan 25 MG TAB PO SCH (08:28)
[2020-08-09] MEDS: Aspirin 81 mg Enteric Coated Tablet PO SCH (08:29)
[2020-08-09] MEDS: HYDROcodone/Acetaminophen 5/325 mg Tablet PO PRN ×2 (08:29→11:55)
[2020-08-09] MEDS: Miconazole 2% Vaginal Cream 45 GM TUBE TOP SCH (08:29)
[2020-08-09] MEDS: Fentanyl 100 MCG/2 ML VIAL SLOW IVP PRN (10:15)
[2020-08-09 11:47] VITALS: TEMP 96.6
[2020-08-09] MEDS: tiZANidine HCl 4 MG TAB PO PRN (11:55)
[2020-08-09 12:22] VITALS: BP 182/81
== END 2020-08-09 16:00 ==
LOC: SDC 10:32 → SURG A 13:57
PROVIDERS: ADMIT Orthopaedic Surgery; ATTEND Orthopaedic Surgery
PROC: 0QPK04Z Removal of Internal Fixation Device from Left Fibula, Open Approach (ICD-10-PCS; principal; 2020-08-07)
DX: T84.84XA Pain due to internal orthopedic prosthetic devices, implants and grafts, initial encounter (principal); I10 Essential (primary) hypertension; G43.909 Migraine, unspecified, not intractable, without status migrainosus; G89.29 Other chronic pain; M54.9 Dorsalgia, unspecified; M53.3 Sacrococcygeal disorders, not elsewhere classified; Z79.1 Long term (current) use of non-steroidal anti-inflammatories (NSAID); Z79.899 Other long term (current) drug therapy; Z88.0 Allergy status to penicillin; Z88.5 Allergy status to narcotic agent; Z91.011 Allergy to milk products; Z98.1 Arthrodesis status
CPT/HCPCS: 36415; 51701; 51702; 51798; 76000; 85025; 96374; 96375; 96376; G0378; J0360; J1170; J1956; J2405; J2704; J3010; J3490

== ENCOUNTER 2023-03-24 12:30 | Outpatient (CLI) | payer MEDICARE | END 2023-03-24 12:31 | disposition home or self-care (01) | LOC: CT 12:30 | PROVIDERS: ATTEND Orthopaedic Surgery | DX: M54.50 Low back pain, unspecified (principal); M47.22 Other spondylosis with radiculopathy, cervical region; Z98.1 Arthrodesis status | CPT/HCPCS: 72131 ==

== ENCOUNTER 2023-12-30 07:58 | Outpatient (CLI) | payer MEDICARE ==
[2023-12-30] MEDS ORDERED: Iopamidol 370 76% 100 ML VIAL ONE (10:15)
== END 2023-12-30 07:59 | disposition home or self-care (01) ==
LOC: CT 07:58 → BICCT 07:59
PROVIDERS: ATTEND Thoracic Surgery (Cardiothoracic Vascular Surgery)
DX: M51.9 Unspecified thoracic, thoracolumbar and lumbosacral intervertebral disc disorder (principal); K44.9 Diaphragmatic hernia without obstruction or gangrene; K42.9 Umbilical hernia without obstruction or gangrene; I70.0 Atherosclerosis of aorta; I70.8 Atherosclerosis of other arteries
CPT/HCPCS: 36415; 74177; 82565; Q9967

== ENCOUNTER 2024-01-15 10:20 | Outpatient (CLI) | payer MEDICARE ==
[2024-01-15 11:45] LABS: #Basophils 0.03 10x3/uL (0.0-0.2); %Basophils 0.5 % (0.0-1.0); %Eosinophils 2.4 % (0.0-10.0); %Lymphocytes 24.3 % (21.0-51.0); %Monocytes 7.1 % (0.0-10.0); %Neutrophils 65.5 % (42.0-75.0); Hematocrit 40.5 % (36.0-47.0); Hemoglobin 13.2 g/dL (12.0-16.0); Mean Corpuscular HGB CONC 32.6 g/dL (32.0-36.0); Mean Corpuscular Hemoglobin 30.2 pg (27.0-31.0); Mean Corpuscular Volume 92.7 fL (78.0-98.0); Mean Platelet Volume 9.5 fL (7.4-10.4); Platelet Count 193 10x3/uL (130-400); RBC Distribution Width 12.9 % (11.5-14.5); Red Blood Cell (RBC) Count 4.37 mill/uL (4.20-5.40)
[2024-01-15 11:58] LABS: Anion Gap 13 mmol/L (10-20); BUN (Urea Nitrogen) 18 mg/dL (9.8-20.1); Calc. Creatinine Clearance 0 mL/min (70-130); Calcium 9.2 mg/dL (7.8-10.44); Carbon Dioxide 24 mmol/L (23-31); Chloride 106 mmol/L (98-107); Estimated GFR 62; Glucose 118 mg/dL (83-110); Potassium 3.8 mmol/L (3.5-5.1); Sodium 139 mmol/L (136-145)
== END 2024-01-15 10:21 | disposition home or self-care (01) ==
LOC: LABBT 10:20
PROVIDERS: ATTEND Thoracic Surgery (Cardiothoracic Vascular Surgery)
DX: Z01.812 Encounter for preprocedural laboratory examination (principal); K43.0 Incisional hernia with obstruction, without gangrene
CPT/HCPCS: 80048; 85025

== ENCOUNTER 2024-01-16 06:11 | Day surgery (SDC) | payer MEDICARE ==
[2024-01-15 10:34] VITALS: BMI 30.2
[2024-01-16] MEDS ORDERED: Bupivacaine PF 0.5% 30 ML VIAL ONE (06:28)
[2024-01-16] MEDS ORDERED: EPINEPHrine 1 MG/ML VIAL ONE (06:28)
[2024-01-16] MEDS ORDERED: Ondansetron PF 4 MG/2 ML Vial ONE (06:45)
[2024-01-16] MEDS ORDERED: Dexamethasone 4 mg/ml Vial ONE (06:45)
[2024-01-16] MEDS ORDERED: fentaNYL PF 100 MCG/2 ML SYRINGE ONE (06:45)
[2024-01-16] MEDS ORDERED: Rocuronium Bromide 10 MG/ML (10ML VIAL) ONE (06:45)
[2024-01-16] MEDS ORDERED: PROPOFOL 40 ML ONE (06:45)
[2024-01-16] MEDS ORDERED: Lidocaine 1% PF 5 ML VIAL ONE (06:45)
[2024-01-16] MEDS ORDERED: SUGAMMADEX SODIUM 200 MG/2 ML VIAL ONE (06:46)
[2024-01-16] MEDS ORDERED: Clindamycin/D5W 600 mg/50 ml Premix Bag ONE (07:07)
[2024-01-16] MEDS ORDERED: PHENYLEPHRINE-NS 100 MCG/ML 10 ML SYRINGE ONE ×2 (07:21→08:02)
[2024-01-16] MEDS ORDERED: ePHEDrine Sulfate 50 MG/10 ML VIAL ONE (07:31)
[2024-01-16] MEDS ORDERED: Glycopyrrolate 0.2 MG/ML 5 ML SYRINGE ONE (07:34)
[2024-01-16] MEDS ORDERED: HYDROcodone/Acetaminophen 5/325 mg Tablet ONE ×2 (09:38→09:56)
== END 2024-01-16 11:00 | disposition home or self-care (01) ==
LOC: SDC 06:11
PROVIDERS: ATTEND Thoracic Surgery (Cardiothoracic Vascular Surgery)
PROC: 0WQF0ZZ Repair Abdominal Wall, Open Approach (ICD-10-PCS; principal; 2024-01-16)
DX: K43.2 Incisional hernia without obstruction or gangrene (principal); I10 Essential (primary) hypertension; F32.A Depression, unspecified; F41.9 Anxiety disorder, unspecified; G40.909 Epilepsy, unspecified, not intractable, without status epilepticus; G43.909 Migraine, unspecified, not intractable, without status migrainosus; H40.9 Unspecified glaucoma; M81.0 Age-related osteoporosis without current pathological fracture; Z90.710 Acquired absence of both cervix and uterus; Z90.49 Acquired absence of other specified parts of digestive tract; Z96.652 Presence of left artificial knee joint; Z98.890 Other specified postprocedural states; Z88.0 Allergy status to penicillin; Z88.5 Allergy status to narcotic agent; Z88.8 Allergy status to other drugs, medicaments and biological substances; Z88.6 Allergy status to analgesic agent; Z79.899 Other long term (current) drug therapy
CPT/HCPCS: 49591; J0171; J0665; J1100; J2405; J2704; J3490

== ENCOUNTER 2024-03-06 08:30 | Emergency (ER) | payer MEDICARE | END 2024-03-06 10:04 | disposition home or self-care (01) | LOC: ERS 08:30 | DX: S00.12XA Contusion of left eyelid and periocular area, initial encounter (principal); S00.03XA Contusion of scalp, initial encounter; W19.XXXA Unspecified fall, initial encounter; M25.532 Pain in left wrist; I10 Essential (primary) hypertension; Z86.73 Personal history of transient ischemic attack (TIA), and cerebral infarction without residual deficits; W22.8XXA Striking against or struck by other objects, initial encounter; Y93.89 Activity, other specified | CPT/HCPCS: 70450; 70486 ==